=== PATIENT | male | born 1945 | race Hispanic/Latino ===

== ENCOUNTER 2016-12-06 16:57 | Inpatient (IN) | payer MEDICARE ==
--- NOTE | 2016-12-06 18:57 | Emergency Department Report ---
Chief Complaint: Dyspnea/Respdistress Stated Complaint: DIFF BREATHING Time Seen by Provider: 12/06/16 18:51 - HPI History of Present Illness: 71 y/o male complain of shortness of breath x 1 hour prior to arrival .pt current out home O2 tank .pt state he did 2 breather treatment today without any relief .pt denies any shortness of breath at present .pt state he was given an influenza shot on Thursday.pt state he start on CPAP also on thursday. - ROS Review of Systems: per HPI - Exam Vital Signs: Vital Signs 12/06/16 17:22 Temperature 98.8 F Pulse Rate 112 H Respiratory 22 Rate Blood Pressure 95/57 O2 Sat by Pulse 94 Oximetry Physical Exam: GENERAL: The patient is well-developed and well-nourished. Patient is in NAD. HENT: Normocephalic. Atraumatic. Patient has moist mucous membranes. Throat: No erythema, swelling or exudates. EYES: Extraocular motions are intact, PERRL NECK: Supple. No meningitic signs are noted. There is no adenopathy noted. CHEST/LUNGS: wheezing noted bilateral . There is no respiratory distress noted. HEART/CARDIOVASCULAR: Regular rate and rhythm. Normal S1 S2. No murmurs, rubs , clicks, or gallops. ABDOMEN: Abdomen is soft, nontender.. Bowel sounds normoactive. There is no abdominal distention. Negative rebound tenderness. Negative Rovsing. Negative Ellinger testing. Negative obturator and psoas signs. Negative CVA tenderness B/ L. : Deferred. SKIN: There is no rash. There is no edema. There is no diaphoresis. NEURO: The patient is A&Ox3. The patient has no focal neurologic deficits. MUSCULOSKELETAL: There is no tenderness or deformity. There is no limitation range of motion. PSYCH: Pt has appropriate mood and affect. MSE screening note: Focused history and physical exam performed. Due to findings the following was ordered: ED Disposition for MSE Condition: Stable
[2016-12-06] MEDS ORDERED: DUONEB 0.5 MG-3 MG/3 ML SOLN IH ONE (19:03)
[2016-12-06 19:44] LABS: Basophils % (Auto) 0.3 % (0.0-1.8); Eosinophils % (Auto) 1.1 % (0.0-4.3); Hematocrit 35.6 % (35.5-45.6); Hemoglobin 11.9 gm/dl (11.8-15.2); Mean Corpuscular HGB Conc 33 % (32-34); Mean Corpuscular Hemoglobin 29 pg (28-32); Mean Corpuscular Volume 87 fl (84-94); Platelet Count 156 K/mm3 (140-440); Red Blood Count 4.11 M/mm3 (3.65-5.03); Red Cell Distribution Width 17.2 % (13.2-15.2); White Blood Count 7.6 K/mm3 (4.5-11.0)
[2016-12-06 20:03] LABS: Creatine Kinase MB 2.4 ng/mL (0.0-4.0)
[2016-12-06 20:06] LABS: Blood Urea Nitrogen 23 mg/dL (9-20); Calcium 9.4 mg/dL (8.4-10.2); Carbon Dioxide 22 mmol/L (22-30); Creatine Kinase 95 units/L (55-170); Glucose 294 mg/dL (75-100); Potassium 4.1 mmol/L (3.6-5.0); Sodium 138 mmol/L (137-145)
[2016-12-06 20:46] LABS: Anion Gap 22 mmol/L
[2016-12-06] MEDS ORDERED: PROVENTIL IH ONE (23:09)
[2016-12-06] MEDS ORDERED: ATROVENT IH ONE (23:09)
--- NOTE | 2016-12-06 23:16 | Emergency Department Report ---
HPI - General Chief Complaint: Dyspnea/Respdistress Time Seen by Provider: 12/06/16 22:57 - HPI HPI: Room 4 The patient is a 71-year-old male presenting with a chief complaint of shortness of breath. The patient states his symptoms began approximately 3 days ago with rhinorrhea, nasal congestion and sneezing dry throat, cough that was occasionally productive of sputum and increased wheezing. The patient states 2 days before his symptoms began he received a flu and pneumonia vaccinations primary physician's office. Today at home he noticed his pulse ox was 86% on room air while receiving a nebulizer. The patient states he normally wears 3 L nasal cannula most of the time. Patient admits to subjective fever. In the ED the patient was given a neb which he states only helped slightly. The patient still feels short of breath with increased work of breathing. Location: Lungs Duration: [see above] Quality: Shortness of breath Severity: Moderate Modifying factors: [see above] Context: [see above] Mode of transportation: [not driving] ED Past Medical Hx - Past Medical History Hx Hypertension: Yes Hx Diabetes: Yes (1993) Hx Arthritis: Yes (right knee hands) Hx Kidney Stones: Yes Hx COPD: Yes (home O2 3-4 Lpm NC) Additional medical history: 'bundle branch block', respiratory failure, intubated x 5. last pneumovax 12/01/2016. last flu shot 12/01/2016 - Surgical History Past Surgical History?: Yes Additional Surgical History: hernia repair. kidney stones removed - Family History Family history: no significant - Social History Smoking Status: Former Smoker (none 2 years) Substance Use Type: Alcohol (occasional) - Medications Home Medications: Home Medications Medication Instructions Recorded Confirmed Last Taken Type Ipratropium/Albuterol Sulfate 1 spray IH QID 06/18/15 12/02/15 10/11/15 History [Combivent Respimat] Amoxicillin/K Clav Tab [Augmentin 1 tab PO Q12HR #20 tab 10/16/15 12/02/15 Unknown Rx 875 mg] predniSONE [Deltasone] 50 mg PO QDAY #10 tab 10/16/15 12/02/15 Unknown Rx ALBUTEROL Inhaler [ProAir HFA 2 puff IH QID PRN #1 inha 04/30/16 10/23/16 Unknown Rx Inhaler] Aspirin [Aspirin BABY CHEW TAB] 81 mg PO QDAY #30 tab.chew 04/30/16 10/23/16 Unknown Rx AtorvaSTATin [Lipitor] 40 mg PO QPM #30 tablet 04/30/16 10/23/16 Unknown Rx Canagliflozin [Invokana] 300 mg PO DAILY #30 tablet 04/30/16 10/23/16 Unknown Rx Escitalopram [Lexapro] 10 mg PO DAILY #30 tablet 04/30/16 10/23/16 Unknown Rx Insulin Glargine [Lantus VIAL] 28 unit SUB-Q QHS #100 units 04/30/16 10/23/16 Unknown Rx Insulin Glulisine [Apidra] See Protocol SQ TIDWM #100 units 04/30/16 10/23/16 Unknown Rx Ipratropium/Albuterol Sulfate 1 spray IH QID #1 mist.inhal 04/30/16 10/23/16 Unknown Rx [Combivent Respimat] Lisinopril [Zestril TAB] 10 mg PO QDAY #30 tablet 04/30/16 10/23/16 Unknown Rx Metformin HCl [Glucophage] 1,000 mg PO BID #60 tablet 04/30/16 10/23/16 Unknown Rx Sitagliptin Phosphate [Januvia] 100 mg PO DAILY #30 tablet 04/30/16 10/23/16 Unknown Rx amLODIPine [Norvasc] 5 mg PO DAILY #30 tablet 04/30/16 10/23/16 Unknown Rx Azithromycin [Zithromax Z-DEVORA] 0 mg PO DAILY #1 tab 10/24/16 Unknown Rx Loratadine [Claritin] 10 mg PO QDAY #10 tablet 10/24/16 Unknown Rx Prednisone [predniSONE 10 mg 10 mg PO .TAPER #1 tab.ds.pk 10/24/16 Unknown Rx (6-Day Pack, 21 Tabs)] ED Review of Systems ROS: Stated complaint: DIFF BREATHING Other details as noted in HPI Comment: All other systems reviewed and negative Constitutional: fever (subjective) Eyes: denies: eye pain, eye discharge, vision change ENT: congestion, other (rhinorrhea). denies: ear pain, throat pain Respiratory: cough, shortness of breath, wheezing Cardiovascular: denies: chest pain, palpitations Endocrine: no symptoms reported Gastrointestinal: denies: abdominal pain, nausea, diarrhea Genitourinary: denies: urgency, dysuria Musculoskeletal: denies: back pain, joint swelling, arthralgia Skin: denies: rash, lesions Neurological: denies: headache, weakness, paresthesias Psychiatric: denies: anxiety, depression Hematological/Lymphatic: denies: easy bleeding, easy bruising Physical Exam - Physical Exam Vital Signs: Vital Signs 12/06/16 12/06/16 12/06/16 17:22 19:46 19:52 Temperature 98.8 F Pulse Rate 112 H Pulse Rate [ 109 H 104 H Posterior Bilateral Throughout] Respiratory 22 Rate Respiratory 22 22 Rate [Posterior Bilateral Throughout] Blood Pressure 95/57 O2 Sat by Pulse 94 Oximetry Physical Exam: GENERAL: The patient is well-developed well-nourished male lying on stretcher appearing to have slightly labored respirations. [] HEENT: Normocephalic. Atraumatic. Extraocular motions are intact. Patient has moist mucous membranes. NECK: Supple. Trachea midline CHEST/LUNGS: Diminished breath sounds bilaterally. Fine expiratory wheezes auscultated. There is increased work of breathing with some accessory muscle use HEART/CARDIOVASCULAR: Regular. There is no tachycardia. There is no gallop rub or murmur. ABDOMEN: Abdomen is soft, nontender. Patient has normal bowel sounds. There is no abdominal distention. SKIN: There is no rash. There is trace bilateral lower extremity edema. There is no diaphoresis. NEURO: The patient is awake, alert, and oriented. The patient is cooperative. The patient has normal speech MUSCULOSKELETAL:There is no evidence of acute injury. ED Course Vital Signs 12/06/16 12/06/16 12/06/16 17:22 19:46 19:52 Temperature 98.8 F Pulse Rate 112 H Pulse Rate [ 109 H 104 H Posterior Bilateral Throughout] Respiratory 22 Rate Respiratory 22 22 Rate [Posterior Bilateral Throughout] Blood Pressure 95/57 O2 Sat by Pulse 94 Oximetry - Reevaluation(s) Reevaluation #1: 12/07/16 00:05 Patient is less diminished after nebs subsequently more wheezing is audible. Given continued work of breathing and wheezing patient will be admitted to the hospital for further management - Consultations Consultation #1: 12/07/16 00:05 Pulmonology paged ED Medical Decision Making - Lab Data Result diagrams: 12/06/16 19:24 12/06/16 19:24 Laboratory Tests 12/06/16 12/06/16 12/06/16 19:24 19:24 19:24 WBC 7.6 RBC 4.11 Hgb 11.9 Hct 35.6 MCV 87 MCH 29 MCHC 33 RDW 17.2 H Plt Count 156 Lymph % (Auto) 13.3 L [place] % (Auto) 9.6 H Eos % (Auto) 1.1 Baso % (Auto) 0.3 Lymph # 1.0 L Leslie # 0.7 Eos # 0.1 Baso # 0.0 Seg Neutrophils % 75.7 H Seg Neutrophils # 5.7 Sodium 138 Potassium 4.1 Chloride 98.0 Carbon Dioxide 22 Anion Gap 22 BUN 23 H Creatinine 1.0 Estimated GFR > 60 BUN/Creatinine Ratio 23.00 Glucose 294 H Calcium 9.4 Total Creatine Kinase 95 CK-MB (CK-2) 2.4 CK-MB (CK-2) Rel Index 2.5 Troponin T < 0.010 NT-Pro-B Natriuret Pep 315.6 - EKG Data -: EKG Interpreted by Me EKG shows normal: sinus rhythm Rate: normal - EKG Data When compared to previous EKG there are: no significant change Interpretation: unchanged when compared t (10/23/2016), other (left bundle branch block) - Radiology Data Radiology results: image reviewed (chest x-ray) interpreted by me: Chest x-ray-left lower lobe atelectasis. No pneumothorax - Differential Diagnosis pneumonia, COPD, pneumothorax Critical care attestation.: If time is entered above; I have spent that time in minutes in the direct care of this critically ill patient, excluding procedure time. ED Disposition Clinical Impression: COPD exacerbation, Atelectasis, Shortness of breath Disposition: OP ADMITTED IP TO THIS HOSP Is pt being admited?: Yes Does the pt Need Aspirin: Yes Condition: Fair Instructions: Chronic Obstructive Pulmonary Disease (ED) Referrals: PRIMARY CARE, [Primary Care Provider] - 3-5 Days Time of Disposition: 00:06 (hospitalist notified)
--- NOTE | 2016-12-07 00:27 | History and Physical Report ---
History of Present Illness Chief complaint: short of breath History of present illness: 71 YO Male with COPD, Chronic Respiratory Failure on 3L Home oxygen, DM, HTN, OA , Cardiomyopathy presents to ED for evalauation. PT states that he has been experiencing shortness of breath for wht past 4 days with worsening symptoms over the past 1 day. Pt acknowledges productive cough with increased sputum. Pt denies fever, chills, CP, Palpitations, NVD, Syncope, prolonged immobility/ travel, individual/family history of DVT/PE. Today at home he noticed his pulse ox was 86% on room air while receiving a nebulizer and subsequently presents for evaluation. Past History Past Medical History: arthritis, COPD, diabetes, hypertension Past Surgical History: hernia repair, Other (kidney stone extraction) Social history: , lives with family. denies: smoking, alcohol abuse, prescription drug abuse Family history: diabetes, hypertension Medications and Allergies Allergies Allergy/AdvReac Type Severity Reaction Status Date / Time benazepril HCl Allergy Rash Verified 09/21/14 16:29 [From Lotensin] theophylline AdvReac Unknown Verified 09/21/14 16:29 Home Medications Medication Instructions Recorded Confirmed Last Taken Type Ipratropium/Albuterol Sulfate 1 spray IH QID 06/18/15 12/02/15 10/11/15 History [Combivent Respimat] Amoxicillin/K Clav Tab [Augmentin 1 tab PO Q12HR #20 tab 10/16/15 12/02/15 Unknown Rx 875 mg] predniSONE [Deltasone] 50 mg PO QDAY #10 tab 10/16/15 12/02/15 Unknown Rx ALBUTEROL Inhaler [ProAir HFA 2 puff IH QID PRN #1 inha 04/30/16 12/07/16 1 Day Ago Rx Inhaler] Aspirin [Aspirin BABY CHEW TAB] 81 mg PO QDAY #30 tab.chew 04/30/16 12/07/16 1 Day Ago Rx 81 AtorvaSTATin [Lipitor] 40 mg PO QPM #30 tablet 04/30/16 12/07/16 1 Day Ago Rx 40 Canagliflozin [Invokana] 300 mg PO DAILY #30 tablet 04/30/16 12/07/16 1 Day Ago Rx 300 Escitalopram [Lexapro] 10 mg PO DAILY #30 tablet 04/30/16 12/07/16 1 Day Ago Rx 10 Insulin Glargine [Lantus VIAL] 28 unit SUB-Q QHS #100 units 04/30/16 12/07/16 1 Day Ago Rx Insulin Glulisine [Apidra] See Protocol SQ TIDWM #100 units 04/30/16 12/07/16 1 Day Ago Rx Ipratropium/Albuterol Sulfate 1 spray IH QID #1 mist.inhal 04/30/16 12/07/16 1 Day Ago Rx [Combivent Respimat] 1 Lisinopril [Zestril TAB] 10 mg PO QDAY #30 tablet 04/30/16 12/07/16 1 Day Ago Rx 10 Metformin HCl [Glucophage] 1,000 mg PO BID #60 tablet 04/30/16 12/07/16 1 Day Ago Rx 1000 Sitagliptin Phosphate [Januvia] 100 mg PO DAILY #30 tablet 04/30/16 12/07/16 1 Day Ago Rx 100 amLODIPine [Norvasc] 5 mg PO DAILY #30 tablet 04/30/16 12/07/16 1 Day Ago Rx 5 Azithromycin [Zithromax Z-DEVORA] 0 mg PO DAILY #1 tab 10/24/16 12/07/16 1 Day Ago Rx Loratadine [Claritin] 10 mg PO QDAY #10 tablet 10/24/16 12/07/16 1 Day Ago Rx 10 Prednisone [predniSONE 10 mg 10 mg PO .TAPER #1 tab.ds.pk 10/24/16 12/07/16 1 Day Ago Rx (6-Day Pack, 21 Tabs)] 10 Review of Systems All systems: negative Respiratory: cough with sputum, shortness of breath Exam - Constitutional Vitals: Temp Pulse Resp BP Pulse Ox 98.8 F 84 21 125/71 96 12/06/16 17:22 12/06/16 23:31 12/06/16 23:31 12/06/16 23:05 12/06/16 23:18 General appearance: Present: no acute distress, well-nourished - EENT Eyes: Present: PERRL ENT: hearing intact, clear oral mucosa - Neck Neck: Present: supple, normal ROM - Respiratory Respiratory effort: normal Respiratory: bilateral: diminished - Cardiovascular Heart Sounds: Present: S1 & S2. Absent: rub, click - Extremities Extremities: pulses symmetrical, No edema Peripheral Pulses: within normal limits - Abdominal General gastrointestinal: Present: soft, non-tender, non-distended, normal bowel sounds Male genitourinary: Present: normal - Integumentary Integumentary: Present: clear, warm, dry - Musculoskeletal Musculoskeletal: generalized weakness - Psychiatric Psychiatric: appropriate mood/affect, intact judgment & insight - Neurologic Neurologic: CNII-XII intact, moves all extremities Results - Labs CBC & Chem 7: 12/06/16 19:24 12/06/16 19:24 Labs: Abnormal lab results 12/06/16 12/06/16 Range/Units 19:24 19:24 RDW 17.2 H (13.2-15.2) % Lymph % (Auto) 13.3 L (13.4-35.0) % [place] % (Auto) 9.6 H (0.0-7.3) % Lymph # 1.0 L (1.2-5.4) K/mm3 Seg Neutrophils % 75.7 H (40.0-70.0) % BUN 23 H (9-20) mg/dL Glucose 294 H (75-100) mg/dL Assessment and Plan - Patient Problems (1) COPD exacerbation Current Visit: Yes Status: Acute Plan to address problem: Supplemental Oxygen, nebs, IV abx, steroids, supportive care. (2) Acute on chronic respiratory failure Current Visit: No Status: Acute Qualifiers: Respiratory failure complication: hypoxia and hypercapnia Qualified Code(s) : J96.21 - Acute and chronic respiratory failure with hypoxia Plan to address problem: Supplemental oxygen, nebs, supportive care. (3) Diabetes Current Visit: No Status: Chronic Plan to address problem: ADA diet, insulin, accu check (4) HTN (hypertension) Current Visit: No Status: Chronic Plan to address problem: monitor bp q shift, continue current therapy (5) DVT prophylaxis Current Visit: No Status: Acute
--- NOTE | 2016-12-07 00:28 | History and Physical Report ---
Medications and Allergies Allergies Allergy/AdvReac Type Severity Reaction Status Date / Time benazepril HCl Allergy Rash Verified 09/21/14 16:29 [From Lotensin] theophylline AdvReac Unknown Verified 09/21/14 16:29 Home Medications Medication Instructions Recorded Confirmed Last Taken Type Ipratropium/Albuterol Sulfate 1 spray IH QID 06/18/15 12/02/15 10/11/15 History [Combivent Respimat] Amoxicillin/K Clav Tab [Augmentin 1 tab PO Q12HR #20 tab 10/16/15 12/02/15 Unknown Rx 875 mg] predniSONE [Deltasone] 50 mg PO QDAY #10 tab 10/16/15 12/02/15 Unknown Rx ALBUTEROL Inhaler [ProAir HFA 2 puff IH QID PRN #1 inha 04/30/16 10/23/16 Unknown Rx Inhaler] Aspirin [Aspirin BABY CHEW TAB] 81 mg PO QDAY #30 tab.chew 04/30/16 10/23/16 Unknown Rx AtorvaSTATin [Lipitor] 40 mg PO QPM #30 tablet 04/30/16 10/23/16 Unknown Rx Canagliflozin [Invokana] 300 mg PO DAILY #30 tablet 04/30/16 10/23/16 Unknown Rx Escitalopram [Lexapro] 10 mg PO DAILY #30 tablet 04/30/16 10/23/16 Unknown Rx Insulin Glargine [Lantus VIAL] 28 unit SUB-Q QHS #100 units 04/30/16 10/23/16 Unknown Rx Insulin Glulisine [Apidra] See Protocol SQ TIDWM #100 units 04/30/16 10/23/16 Unknown Rx Ipratropium/Albuterol Sulfate 1 spray IH QID #1 mist.inhal 04/30/16 10/23/16 Unknown Rx [Combivent Respimat] Lisinopril [Zestril TAB] 10 mg PO QDAY #30 tablet 04/30/16 10/23/16 Unknown Rx Metformin HCl [Glucophage] 1,000 mg PO BID #60 tablet 04/30/16 10/23/16 Unknown Rx Sitagliptin Phosphate [Januvia] 100 mg PO DAILY #30 tablet 04/30/16 10/23/16 Unknown Rx amLODIPine [Norvasc] 5 mg PO DAILY #30 tablet 04/30/16 10/23/16 Unknown Rx Azithromycin [Zithromax Z-DEVORA] 0 mg PO DAILY #1 tab 10/24/16 Unknown Rx Loratadine [Claritin] 10 mg PO QDAY #10 tablet 10/24/16 Unknown Rx Prednisone [predniSONE 10 mg 10 mg PO .TAPER #1 tab.ds.pk 10/24/16 Unknown Rx (6-Day Pack, 21 Tabs)] Exam - Constitutional Vitals: Temp Pulse Resp BP Pulse Ox 98.8 F 84 21 125/71 96 12/06/16 17:22 12/06/16 23:31 12/06/16 23:31 12/06/16 23:05 12/06/16 23:18 Results - Labs CBC & Chem 7: 12/06/16 19:24 12/06/16 19:24 Labs: Abnormal lab results 12/06/16 12/06/16 Range/Units 19:24 19:24 RDW 17.2 H (13.2-15.2) % Lymph % (Auto) 13.3 L (13.4-35.0) % [place] % (Auto) 9.6 H (0.0-7.3) % Lymph # 1.0 L (1.2-5.4) K/mm3 Seg Neutrophils % 75.7 H (40.0-70.0) % BUN 23 H (9-20) mg/dL Glucose 294 H (75-100) mg/dL
[2016-12-07] MEDS ORDERED: TYLENOL PO PRN (00:29)
[2016-12-07] MEDS ORDERED: PROAIR IH PRN (00:31)
[2016-12-07] MEDS ORDERED: D50W (25GM) IV PRN (00:33)
[2016-12-07] MEDS ORDERED: ZITHROMAX 500 MG in NACL 0.9% 250ML 250 ML IV ONE (00:34)
--- NOTE | 2016-12-07 01:43 | Admit Criteria Form ---
Admission Criteria Documentation: COPD Clinical Indications for Admission to Inpatient Care (Place 'X' for any and all applicable criteria): Admission is indicated for ANY ONE of the following (1)(2)(3): [X ]I. Acute exacerbation by high-risk comorbidity (e.g., pneumonia, dysrhythmia, heart failure, pleural effusion, pneumothorax) or severe underlying COPD (e.g., steroid dependent) [ ]II. Inpatient admission required rather than observation care (see Chronic Obstructive Pulmonary Disease: Observation Care) because of ANY ONE of the following: [ ]a) New or pre-existing signs or symptoms of COPD (eg, dyspnea or Tachypnea at rest or with minimal activity) that persist despite outpatient and observation care treatment [ ]b) New-onset hypoxemia (room air SaO2 less than 90%, PO2 less than 60 mm Hg (8.0 kPa)) that persists despite outpatient and observation care treatment [ ]c) Worsening of pre-existing hypoxemia (eg, new or increased requirement for supplemental oxygen to maintain oxygenation at baseline level) that persists despite outpatient and observation care treatment, with oxygen treatment needs performable only in acute inpatient setting [ ]d) Hypercarbia (PCO2 greater than 40 mm Hg (5.3 kPa))-induced respiratory acidosis (pH less than 7.35) that persists despite outpatient and observation care treatment [ ]e) Supplemental oxygen or respiratory treatments for over 24 hours that are performable only in acute inpatient setting [ ]f) Chest tube placement with active evacuation (e.g., suction, drainage) (5) [ ]g) Other condition, treatment or monitoring requiring inpatient admission [ ]III. Planned invasive surgical or diagnostic procedures requiring acute- care hospitalization [ ]IV. Acute respiratory failure (e.g., uncompensated hypercarbia, severe hypoxemia) [ ]V. Severe comorbid condition (e.g., severe steroid myopathy, acute vertebral fracture) that has acutely worsened pulmonary function [ ]. Confusion state, lethargy, obtundation, stupor or coma Extended stay beyond goal length of stay may be needed for (31)(32): [ ]a ) Respiratory Failure. [ ]b) Severe or persisting hypoxemia or hypercarbia [ ]c) Severe or persistent dyspnea [ ]d) Comorbidities (e.g. chronic heart failure, atrial fibrillation with rapid response, pneumonia) [ ]e) Malnutrition The original [facility] content created by [facility] has been revised. The portions of the content which have been revised are identified through the use of italic text or in bold, and [facility] has neither reviewed nor approved the modified material. All other unmodified content is copyright [facility]. Please see references footnoted in the original [facility] edition 2016 Admission Criteria Met: Yes
[2016-12-07] MEDS: NOVOLOG SUB-Q SCH ×4 (06:20→22:30)
[2016-12-07] MEDS ORDERED: NON-FORMULARY (Canagliflozin [Invokana] 300 MG) PO SCH (10:00)
--- NOTE | 2016-12-07 10:01 | XRay Report ---
ROUTINE CHEST, TWO VIEWS: HISTORY: Dyspnea. Mild to moderate emphysematous changes are suspected. The lungs are clear. Normal heart size and pulmonary vascularity. The thoracic cage is unremarkable. IMPRESSION: Emphysematous changes. Little change since 10/23/16.
[2016-12-07] MEDS: BABY ASPIRIN PO SCH (10:11)
[2016-12-07] MEDS: NORVASC PO SCH (10:12)
[2016-12-07] MEDS: PROVENTIL IH PRN ×2 (11:06→18:41)
[2016-12-07] MEDS: CLARITIN PO SCH (12:08)
[2016-12-07] MEDS: ZESTRIL PO SCH (12:09)
[2016-12-07] MEDS: LEXAPRO PO SCH (12:09)
[2016-12-07] MEDS ORDERED: INSULIN GLARGINE 28 UNIT SUB-Q SCH (22:00)
[2016-12-07] MEDS: LEVEMIR SUB-Q SCH (22:30)
[2016-12-08] MEDS: NOVOLOG SUB-Q SCH ×4 (08:05→22:28)
[2016-12-08] MEDS: PROVENTIL IH PRN (08:16)
[2016-12-08] MEDS ORDERED: PROVENTIL IH PRN (08:21)
[2016-12-08] MEDS: BABY ASPIRIN PO SCH (10:18)
[2016-12-08] MEDS: CLARITIN PO SCH (10:19)
[2016-12-08] MEDS: ZESTRIL PO SCH (10:19)
[2016-12-08] MEDS: NORVASC PO SCH (10:19)
[2016-12-08] MEDS: LEXAPRO PO SCH (10:19)
[2016-12-08] MEDS: ZITHROMAX 500 MG in NACL 0.9% 250ML 250 ML IV SCH (10:22)
--- NOTE | 2016-12-08 13:24 | Consultation ---
Past History Past Medical History: arthritis, COPD, diabetes, hypertension Past Surgical History: hernia repair, Other (kidney stone extraction) Social history: , lives with family. denies: smoking, alcohol abuse, prescription drug abuse Family history: diabetes, hypertension Medications and Allergies Allergies Allergy/AdvReac Type Severity Reaction Status Date / Time benazepril HCl Allergy Rash Verified 09/21/14 16:29 [From Lotensin] theophylline AdvReac Unknown Verified 09/21/14 16:29 Home Medications Medication Instructions Recorded Confirmed Last Taken Type Ipratropium/Albuterol Sulfate 1 spray IH QID 06/18/15 12/02/15 10/11/15 History [Combivent Respimat] Amoxicillin/K Clav Tab [Augmentin 1 tab PO Q12HR #20 tab 10/16/15 12/02/15 Unknown Rx 875 mg] predniSONE [Deltasone] 50 mg PO QDAY #10 tab 10/16/15 12/02/15 Unknown Rx ALBUTEROL Inhaler [ProAir HFA 2 puff IH QID PRN #1 inha 04/30/16 12/07/16 1 Day Ago Rx Inhaler] Aspirin [Aspirin BABY CHEW TAB] 81 mg PO QDAY #30 tab.chew 04/30/16 12/07/16 1 Day Ago Rx 81 AtorvaSTATin [Lipitor] 40 mg PO QPM #30 tablet 04/30/16 12/07/16 1 Day Ago Rx 40 Canagliflozin [Invokana] 300 mg PO DAILY #30 tablet 04/30/16 12/07/16 1 Day Ago Rx 300 Escitalopram [Lexapro] 10 mg PO DAILY #30 tablet 04/30/16 12/07/16 1 Day Ago Rx 10 Insulin Glargine [Lantus VIAL] 28 unit SUB-Q QHS #100 units 04/30/16 12/07/16 1 Day Ago Rx Insulin Glulisine [Apidra] See Protocol SQ TIDWM #100 units 04/30/16 12/07/16 1 Day Ago Rx Ipratropium/Albuterol Sulfate 1 spray IH QID #1 mist.inhal 04/30/16 12/07/16 1 Day Ago Rx [Combivent Respimat] 1 Lisinopril [Zestril TAB] 10 mg PO QDAY #30 tablet 04/30/16 12/07/16 1 Day Ago Rx 10 Metformin HCl [Glucophage] 1,000 mg PO BID #60 tablet 04/30/16 12/07/16 1 Day Ago Rx 1000 Sitagliptin Phosphate [Januvia] 100 mg PO DAILY #30 tablet 04/30/16 12/07/16 1 Day Ago Rx 100 amLODIPine [Norvasc] 5 mg PO DAILY #30 tablet 04/30/16 12/07/16 1 Day Ago Rx 5 Azithromycin [Zithromax Z-DEVORA] 0 mg PO DAILY #1 tab 10/24/16 12/07/16 1 Day Ago Rx Loratadine [Claritin] 10 mg PO QDAY #10 tablet 10/24/16 12/07/16 1 Day Ago Rx 10 Prednisone [predniSONE 10 mg 10 mg PO .TAPER #1 tab.ds.pk 10/24/16 12/07/16 1 Day Ago Rx (6-Day Pack, 21 Tabs)] 10 Active Meds: Active Medications Acetaminophen (Tylenol) 650 mg PO Q4H PRN PRN Reason: Pain MILD(1-3)/Fever >100.5/[place] Albuterol (Proventil) 2.5 mg IH Q4HRT PRN PRN Reason: Shortness Of Breath Albuterol/Ipratropium (Duoneb 0.5 Mg-3 Mg/3 Ml Soln) 1 ampul IH TIDRT JJ Amlodipine Besylate (Norvasc) 5 mg PO DAILY [facility] Last Admin: 12/08/16 10:19 Dose: 5 mg Aspirin (Baby Aspirin) 81 mg PO QDAY [facility] Last Admin: 12/08/16 10:18 Dose: 81 mg Atorvastatin Calcium (Lipitor) 40 mg PO QPM [facility] Dextrose (D50w (25gm)) 50 ml IV PRN PRN PRN Reason: Hypoglycemia Escitalopram Oxalate (Lexapro) 10 mg PO DAILY [facility] Last Admin: 12/08/16 10:19 Dose: 10 mg Azithromycin 500 mg/ Sodium (Chloride) 250 mls @ 250 mls/hr IV Q24HR [facility] Last Admin: 12/08/16 10:22 Dose: 250 mls/hr Insulin Aspart (Novolog) 0 units SUB-Q ACHS JJ PRN Reason: Protocol Last Admin: 12/08/16 08:05 Dose: Not Given Insulin Detemir (Levemir) 28 units SUB-Q QHS [facility] Last Admin: 12/07/16 22:30 Dose: 28 units Lisinopril (Zestril) 10 mg PO QDAY [facility] Last Admin: 12/08/16 10:19 Dose: 10 mg Loratadine (Claritin) 10 mg PO QDAY [facility] Last Admin: 12/08/16 10:19 Dose: 10 mg Methylprednisolone Sodium Succinate (Solu-Medrol) 40 mg IV Q24HR [facility] Last Admin: 12/08/16 10:23 Dose: 40 mg Miscellaneous Medication (Canagliflozin [Invokana]) 300 mg PO DAILY [facility] Physical Examination Vital signs: Vital Signs Temp Pulse Resp BP Pulse Ox 98.8 F 112 H 22 95/57 94 12/06/16 17:22 12/06/16 17:22 12/06/16 17:22 12/06/16 17:22 12/06/16 17:22 Results - Laboratory Findings CBC and BMP: 12/06/16 19:24 12/06/16 19:24 PT/INR, D-dimer D-Dimer 194.49 ng/mlDDU (0-234) 12/07/16 00:47 Abnormal lab findings: Abnormal Labs 12/07/16 12/07/16 12/07/16 06:22 11:50 16:18 POC Glucose 318 H 290 H 378 H 12/07/16 12/08/16 12/08/16 21:20 06:18 12:01 POC Glucose 254 H 115 H 252 H
[2016-12-08] MEDS: DUONEB 0.5 MG-3 MG/3 ML SOLN IH SCH ×2 (14:23→20:52)
--- NOTE | 2016-12-08 16:14 | Progress Note ---
Assessment and Plan Assessment and plan: (1) COPD exacerbation Plan to address problem: Supplemental Oxygen, nebs, IV abx, steroids, supportive care. (2) Acute on chronic respiratory failure Respiratory failure complication: hypoxia and hypercapnia Supplemental oxygen, nebs, supportive care. (3) Diabetes ADA diet, insulin, accu check (4) HTN (hypertension) monitor bp q shift, continue current therapy Tentative dc in 1-2 days if continues to improve History Interval history: Continues to have cough wheezing shortness of breath Hospitalist Physical - Physical exam Narrative exam: General: Patient appears well in no distress HEENT: MMM, EOMI cardiac: S1-S2 heard lungs: Decreased air entry, expiratory wheezing. abdomen: soft, nontender, nondistended bowel sounds positive extremities: no edema clubbing or cyanosis Skin: no rash or lesion Neuro: no focal deficit Psych: appropriate behavior and mood, cognition intact - Constitutional Vitals: Temp Pulse Resp BP Pulse Ox 98.5 F 92 H 20 116/60 95 12/08/16 16:10 12/08/16 16:10 12/08/16 16:10 12/08/16 16:10 12/08/16 10:00 General appearance: Present: no acute distress, well-nourished Results - Labs CBC & Chem 7: 12/06/16 19:24 12/06/16 19:24 Labs: Laboratory Last Values WBC 7.6 K/mm3 (4.5-11.0) 12/06/16 19:24 RBC 4.11 M/mm3 (3.65-5.03) 12/06/16 19:24 Hgb 11.9 gm/dl (11.8-15.2) 12/06/16 19:24 Hct 35.6 % (35.5-45.6) 12/06/16 19:24 MCV 87 fl (84-94) 12/06/16 19:24 MCH 29 pg (28-32) 12/06/16 19:24 MCHC 33 % (32-34) 12/06/16 19:24 RDW 17.2 % (13.2-15.2) H 12/06/16 19:24 Plt Count 156 K/mm3 (140-440) 12/06/16 19:24 Lymph % (Auto) 13.3 % (13.4-35.0) L 12/06/16 19:24 [place] % (Auto) 9.6 % (0.0-7.3) H 12/06/16 19:24 Eos % (Auto) 1.1 % (0.0-4.3) 12/06/16 19:24 Baso % (Auto) 0.3 % (0.0-1.8) 12/06/16 19:24 Lymph # 1.0 K/mm3 (1.2-5.4) L 12/06/16 19:24 [place] # 0.7 K/mm3 (0.0-0.8) 12/06/16 19:24 Eos # 0.1 K/mm3 (0.0-0.4) 12/06/16 19:24 Baso # 0.0 K/mm3 (0.0-0.1) 12/06/16 19:24 Seg Neutrophils % 75.7 % (40.0-70.0) H 12/06/16 19:24 Seg Neutrophils # 5.7 K/mm3 (1.8-7.7) 12/06/16 19:24 D-Dimer 194.49 ng/mlDDU (0-234) 12/07/16 00:47 Sodium 138 mmol/L (137-145) 12/06/16 19:24 Potassium 4.1 mmol/L (3.6-5.0) 12/06/16 19:24 Chloride 98.0 mmol/L (98-107) 12/06/16 19:24 Carbon Dioxide 22 mmol/L (22-30) 12/06/16 19:24 Anion Gap 22 mmol/L 12/06/16 19:24 BUN 23 mg/dL (9-20) H 12/06/16 19:24 Creatinine 1.0 mg/dL (0.8-1.5) 12/06/16 19:24 Estimated GFR > 60 ml/min 12/06/16 19:24 BUN/Creatinine Ratio 23.00 % 12/06/16 19:24 Glucose 294 mg/dL (75-100) H 12/06/16 19:24 POC Glucose 252 (70-105) H 12/08/16 12:01 Calcium 9.4 mg/dL (8.4-10.2) 12/06/16 19:24 Total Creatine Kinase 95 units/L (55-170) 12/06/16 19:24 CK-MB (CK-2) 2.4 ng/mL (0.0-4.0) 12/06/16 19:24 CK-MB (CK-2) Rel Index 2.5 (0-4) 12/06/16 19:24 Troponin T < 0.010 ng/mL (0.00-0.029) 12/06/16 19:24 NT-Pro-B Natriuret Pep 315.6 pg/mL (0-900) 12/06/16 19:24
--- NOTE | 2016-12-08 19:22 | Consultation ---
History of Present Illness Consult date: 12/08/16 Requesting physician: HANSA CHRISTIE Reason for consult: COPD History of present illness: [address] León admitted with increased cough, yellow sputum, yellow nasal discharge, increased SOB and wheezing, subjective fevers, worsening hypoxia. No chest pain, hemoptysis. Feeling better since admission. Recently got a new CPAP and wonders if the humidity made his lungs worse. Active Medications Acetaminophen (Tylenol) 650 mg PO Q4H PRN PRN Reason: Pain MILD(1-3)/Fever >100.5/[place] Albuterol (Proventil) 2.5 mg IH Q4HRT PRN PRN Reason: Shortness Of Breath Albuterol/Ipratropium (Duoneb 0.5 Mg-3 Mg/3 Ml Soln) 1 ampul IH TIDRT [facility] Last Admin: 12/08/16 14:23 Dose: 1 ampul Amlodipine Besylate (Norvasc) 5 mg PO DAILY [facility] Last Admin: 12/08/16 10:19 Dose: 5 mg Aspirin (Baby Aspirin) 81 mg PO QDAY [facility] Last Admin: 12/08/16 10:18 Dose: 81 mg Atorvastatin Calcium (Lipitor) 40 mg PO QPM [facility] Last Admin: 12/08/16 18:31 Dose: 40 mg Dextrose (D50w (25gm)) 50 ml IV PRN PRN PRN Reason: Hypoglycemia Escitalopram Oxalate (Lexapro) 10 mg PO DAILY [facility] Last Admin: 12/08/16 10:19 Dose: 10 mg Azithromycin 500 mg/ Sodium (Chloride) 250 mls @ 250 mls/hr IV Q24HR [facility] Last Admin: 12/08/16 10:22 Dose: 250 mls/hr Insulin Aspart (Novolog) 0 units SUB-Q ACHS [facility] PRN Reason: Protocol Last Admin: 12/08/16 17:00 Dose: 4 units Insulin Detemir (Levemir) 28 units SUB-Q QHS [facility] Last Admin: 12/07/16 22:30 Dose: 28 units Lisinopril (Zestril) 10 mg PO QDAY [facility] Last Admin: 12/08/16 10:19 Dose: 10 mg Loratadine (Claritin) 10 mg PO QDAY [facility] Last Admin: 12/08/16 10:19 Dose: 10 mg Methylprednisolone Sodium Succinate (Solu-Medrol) 40 mg IV Q24HR [facility] Last Admin: 12/08/16 10:23 Dose: 40 mg Miscellaneous Medication (Canagliflozin [Invokana]) 300 mg PO DAILY [facility] Past History Past Medical History: arthritis, COPD, diabetes, hypertension Past Surgical History: hernia repair, Other (kidney stone extraction) Social history: , lives with family, full code. denies: smoking, alcohol abuse, prescription drug abuse, IV drug use Family history: diabetes, hypertension Medications and Allergies Allergies Allergy/AdvReac Type Severity Reaction Status Date / Time benazepril HCl Allergy Rash Verified 09/21/14 16:29 [From Lotensin] theophylline AdvReac Unknown Verified 09/21/14 16:29 Home Medications Medication Instructions Recorded Confirmed Last Taken Type RX: Ipratropium/Albuterol Sulfate 1 spray IH QID 06/18/15 12/02/15 10/11/15 History [Combivent Respimat] Amoxicillin/K Clav Tab [Augmentin 1 tab PO Q12HR #20 tab 10/16/15 12/02/15 Unknown Rx 875 mg] RX: predniSONE [Deltasone] 50 mg PO QDAY #10 tab 10/16/15 12/02/15 Unknown Rx RX: ALBUTEROL Inhaler [ProAir HFA 2 puff IH QID PRN #1 inha 04/30/16 12/07/16 1 Day Ago Rx Inhaler] RX: Aspirin [Aspirin BABY CHEW TAB] 81 mg PO QDAY #30 tab.chew 04/30/16 1 Day Ago Rx 81 RX: AtorvaSTATin [Lipitor] 40 mg PO QPM #30 tablet 04/30/16 12/07/16 1 Day Ago Rx 40 RX: Canagliflozin [Invokana] 300 mg PO DAILY #30 tablet 04/30/16 12/07/16 1 Day Ago Rx 300 RX: Escitalopram [Lexapro] 10 mg PO DAILY #30 tablet 04/30/16 12/07/16 1 Day Ago Rx 10 RX: Insulin Glargine [Lantus VIAL] 28 unit SUB-Q QHS #100 units 04/30/16 1 Day Ago Rx RX: Insulin Glulisine [Apidra] See Protocol SQ TIDWM #100 units 04/30/16 1 Day Ago Rx RX: Ipratropium/Albuterol Sulfate 1 spray IH QID #1 mist.inhal 04/30/16 1 Day Ago Rx [Combivent Respimat] 1 RX: Lisinopril [Zestril TAB] 10 mg PO QDAY #30 tablet 04/30/16 12/07/16 1 Day Ago Rx 10 RX: Metformin HCl [Glucophage] 1,000 mg PO BID #60 tablet 04/30/16 12/07/16 1 Day Ago Rx 1000 RX: Sitagliptin Phosphate [Januvia] 100 mg PO DAILY #30 tablet 04/30/16 1 Day Ago Rx 100 RX: amLODIPine [Norvasc] 5 mg PO DAILY #30 tablet 04/30/16 12/07/16 1 Day Ago Rx 5 Azithromycin [Zithromax Z-DEVORA] 0 mg PO DAILY #1 tab 10/24/16 12/07/16 1 Day Ago Rx RX: Loratadine [Claritin] 10 mg PO QDAY #10 tablet 10/24/16 12/07/16 1 Day Ago Rx 10 RX: Prednisone [predniSONE 10 mg 10 mg PO .TAPER #1 tab.ds.pk 10/24/16 12/07/16 1 Day Ago Rx (6-Day Pack, 21 Tabs)] 10 Active Meds: Active Medications Acetaminophen (Tylenol) 650 mg PO Q4H PRN PRN Reason: Pain MILD(1-3)/Fever >100.5/[place] Albuterol (Proventil) 2.5 mg IH Q4HRT PRN PRN Reason: Shortness Of Breath Albuterol/Ipratropium (Duoneb 0.5 Mg-3 Mg/3 Ml Soln) 1 ampul IH TIDRT [facility] Last Admin: 12/08/16 14:23 Dose: 1 ampul Amlodipine Besylate (Norvasc) 5 mg PO DAILY [facility] Last Admin: 12/08/16 10:19 Dose: 5 mg Aspirin (Baby Aspirin) 81 mg PO QDAY [facility] Last Admin: 12/08/16 10:18 Dose: 81 mg Atorvastatin Calcium (Lipitor) 40 mg PO QPM [facility] Last Admin: 12/08/16 18:31 Dose: 40 mg Dextrose (D50w (25gm)) 50 ml IV PRN PRN PRN Reason: Hypoglycemia Escitalopram Oxalate (Lexapro) 10 mg PO DAILY [facility] Last Admin: 12/08/16 10:19 Dose: 10 mg Azithromycin 500 mg/ Sodium (Chloride) 250 mls @ 250 mls/hr IV Q24HR [facility] Last Admin: 12/08/16 10:22 Dose: 250 mls/hr Insulin Aspart (Novolog) 0 units SUB-Q ACHS JJ PRN Reason: Protocol Last Admin: 12/08/16 17:00 Dose: 4 units Insulin Detemir (Levemir) 28 units SUB-Q QHS [facility] Last Admin: 12/07/16 22:30 Dose: 28 units Lisinopril (Zestril) 10 mg PO QDAY [facility] Last Admin: 12/08/16 10:19 Dose: 10 mg Loratadine (Claritin) 10 mg PO QDAY [facility] Last Admin: 12/08/16 10:19 Dose: 10 mg Methylprednisolone Sodium Succinate (Solu-Medrol) 40 mg IV Q24HR [facility] Last Admin: 12/08/16 10:23 Dose: 40 mg Miscellaneous Medication (Canagliflozin [Invokana]) 300 mg PO DAILY [facility] Review of Systems All systems: negative (neg x 10 systems) Physical Examination Vital signs: Vital Signs Temp Pulse Resp BP Pulse Ox 98.8 F 112 H 22 95/57 94 12/06/16 17:22 12/06/16 17:22 12/06/16 17:22 12/06/16 17:22 12/06/16 17:22 General appearance: no acute distress, alert Eyes: non-icteric ENT: oropharynx moist Neck: supple Effort: normal Ascultation: Bilateral: clear Cardiovascular: regular rate and rhythm (no mrg) Gastrointestinal: normoactive bowel sounds, soft, non-tender, non-distended Integumentary: normal Extremities: no cyanosis, no edema, pink and warm Musculoskeletal: no deformities normal mental status, non-focal exam, pupils equal and round, CN II-XII normal mood appropriate, affect normal Results - Laboratory Findings CBC and BMP: 12/06/16 19:24 12/06/16 19:24 PT/INR, D-dimer D-Dimer 194.49 ng/mlDDU (0-234) 12/07/16 00:47 Abnormal lab findings: Abnormal Labs 12/07/16 12/07/16 12/07/16 06:22 11:50 16:18 POC Glucose 318 H 290 H 378 H 12/07/16 12/08/16 12/08/16 21:20 06:18 12:01 POC Glucose 254 H 115 H 252 H 12/08/16 16:41 POC Glucose 217 H - Diagnostic Findings Chest x-ray: report reviewed, image reviewed (no acute process/interval change) Assessment and Plan Imp: 1. Acute bronchitis +/- sinusitis 2. Centrilobular emphysema/COPD exacerbation; last FEV1 0.97 or 32% c/w very severe obstruction 3. A/C respiratory failure, hypoxia 4. Mild JUAN on CPAP Rec: 1. Complete 7-10 days of ABX 2. Solumedrol -> Prednisone taper at discharge 3. Mobilize as tolerated; monitor clinically; hopeful d/c next 1-2 days Plan of care reviewed w/ patient, he understands/agrees Thanks kindly for the consult. Will follow w/ you.
[2016-12-09] MEDS: LEVEMIR SUB-Q SCH (06:38)
[2016-12-09] MEDS: DUONEB 0.5 MG-3 MG/3 ML SOLN IH SCH (07:43)
[2016-12-09] MEDS: NOVOLOG SUB-Q SCH ×2 (09:22→12:37)
[2016-12-09] MEDS: NORVASC PO SCH (09:35)
[2016-12-09] MEDS: ZESTRIL PO SCH (09:35)
[2016-12-09] MEDS: BABY ASPIRIN PO SCH (09:36)
[2016-12-09] MEDS: LEXAPRO PO SCH (09:36)
[2016-12-09] MEDS: CLARITIN PO SCH (09:37)
--- NOTE | 2016-12-09 09:59 | Discharge Summary ---
Providers - Providers Date of Admission: 12/07/16 00:29 Attending physician: HANSA CHRISTIE MD Primary care physician: BRITTANY ANTOINE MD Hospitalization Condition: Fair Hospital course: This is a 71 y old male with a past medical history of COPD who presented with COPD exacerbation. He was treated with steroids and antibiotics and nebulizer treatment. He will also treated with supplemental oxygen, he clinically improved and being discharged in improved condition Discharge diagnoses 1. Acute exacerbation of COPD 2. Acute on chronic Hypoxic respiratory failure Disposition: DISCHARGED TO HOME OR SELFCARE Time spent for discharge: 35 minutes Core Measure Documentation - Palliative Care Palliative Care/ Comfort Measures: Not Applicable - Core Measures Any of the following diagnoses?: none Exam - Constitutional Vitals: Temp Pulse Resp BP Pulse Ox 96.4 F L 72 20 118/61 94 12/09/16 08:00 12/09/16 09:35 12/09/16 08:00 12/09/16 09:35 12/09/16 08:00 General appearance: Present: no acute distress, well-nourished - EENT Eyes: Present: PERRL ENT: hearing intact, clear oral mucosa - Neck Neck: Present: supple, normal ROM - Respiratory Respiratory effort: normal Respiratory: bilateral: CTA - Cardiovascular Heart Sounds: Present: S1 & S2. Absent: rub, click - Extremities Extremities: pulses symmetrical, No edema Peripheral Pulses: within normal limits - Abdominal General gastrointestinal: Present: soft, non-tender, non-distended, normal bowel sounds Male genitourinary: Present: normal - Integumentary Integumentary: Present: clear, warm, dry - Musculoskeletal Musculoskeletal: gait normal, strength equal bilaterally - Psychiatric Psychiatric: appropriate mood/affect, intact judgment & insight - Neurologic Neurologic: CNII-XII intact, moves all extremities Plan Follow up with: PRIMARY CARE, [Primary Care Provider] - 3-5 Days Prescriptions: Ipratropium/Albuterol Sulfate [Combivent Respimat] 1 spray IH QID #1 mist.inhal Azithromycin [Zithromax Z-DEVORA] 250 mg PO DAILY #4 tab Prednisone [predniSONE 10 mg (6-Day Pack, 21 Tabs)] 10 mg PO .TAPER #1 tab.pk
[2016-12-09] MEDS: ZITHROMAX 500 MG in NACL 0.9% 250ML 250 ML IV SCH (10:05)
[2016-12-09 11:50] VITALS: BP 140/68
--- NOTE | 2016-12-09 18:42 | Progress Note ---
Assessment and Plan Imp: 1. Acute bronchitis +/- sinusitis 2. Centrilobular emphysema/COPD exacerbation; last FEV1 0.97 or 32% c/w very severe obstruction 3. A/C respiratory failure, hypoxia 4. Mild JUAN on CPAP Rec: 1. Complete 7-10 days of ABX 2. Solumedrol -> Prednisone taper at discharge 3. Mobilize as tolerated; monitor clinically; okay to d/c home pulm-monique; f/u w / Dr. León in 1-2 weeks Plan of care reviewed w/ patient, he understands/agrees Subjective Date of service: 12/09/16 Principal diagnosis: COPD exacerbation Interval history: No events. SOB back to baseline. Cough better. No wheezing. Ambulating. Objective Vital Signs - 12hr 12/09/16 12/09/16 12/09/16 07:43 07:44 07:53 Temperature Pulse Rate Pulse Rate [ 68 61 Anterior Bilateral Throughout] Pulse Rate [ Left Radial] Pulse Rate [ Left] Respiratory Rate Respiratory 20 20 Rate [Anterior Bilateral Throughout] Blood Pressure Blood Pressure [Left Arm] O2 Sat by Pulse 96 Oximetry 12/09/16 12/09/16 12/09/16 08:00 09:35 10:00 Temperature 96.4 F L Pulse Rate 72 Pulse Rate [ Anterior Bilateral Throughout] Pulse Rate [ 70 Left Radial] Pulse Rate [ 66 Left] Respiratory 20 15 Rate Respiratory Rate [Anterior Bilateral Throughout] Blood Pressure 118/61 Blood Pressure 109/60 [Left Arm] O2 Sat by Pulse 94 Oximetry 12/09/16 11:30 Temperature 98.0 F Pulse Rate Pulse Rate [ Anterior Bilateral Throughout] Pulse Rate [ Left Radial] Pulse Rate [ 77 Left] Respiratory 20 Rate Respiratory Rate [Anterior Bilateral Throughout] Blood Pressure Blood Pressure 140/68 [Left Arm] O2 Sat by Pulse 97 Oximetry Constitutional: no acute distress, alert Eyes: non-icteric ENT: oropharynx moist Neck: supple Effort: normal Ascultation: Bilateral: clear Cardiovascular: regular rate and rhythm (no mrg) Gastrointestinal: normoactive bowel sounds, soft, non-tender, non-distended Integumentary: normal Extremities: no cyanosis, no edema, pink and warm Neurologic: normal mental status, non-focal exam, pupils equal and round, CN II- XII normal Psychiatric: mood appropriate, affect normal CBC and BMP: 12/06/16 19:24 01/07/17 19:24 ABG, PT/INR, D-dimer: PT/INR, D-dimer D-Dimer 194.49 ng/mlDDU (0-234) 12/07/16 00:47 Abnormal lab findings: Abnormal Labs 12/07/16 12/07/16 12/07/16 06:22 11:50 16:18 POC Glucose 318 H 290 H 378 H 12/07/16 12/08/16 12/08/16 21:20 06:18 12:01 POC Glucose 254 H 115 H 252 H 12/08/16 12/08/16 12/09/16 16:41 21:38 06:11 POC Glucose 217 H 241 H 135 H 12/09/16 11:22 POC Glucose 320 H Chest x-ray: report reviewed, image reviewed
== END 2016-12-09 14:18 | disposition home or self-care (01) | DRG 189 ==
LOC: ED 16:57 → 3A 12-07 00:29
PROVIDERS: ADMIT Internal Medicine; ATTEND Internal Medicine
DX: J96.21 Acute and chronic respiratory failure with hypoxia (principal); J44.0 Chronic obstructive pulmonary disease with (acute) lower respiratory infection; I42.9 Cardiomyopathy, unspecified; J44.1 Chronic obstructive pulmonary disease with (acute) exacerbation; E11.9 Type 2 diabetes mellitus without complications; I10 Essential (primary) hypertension; M19.041 Primary osteoarthritis, right hand; M17.11 Unilateral primary osteoarthritis, right knee; J20.9 Acute bronchitis, unspecified; G47.33 Obstructive sleep apnea (adult) (pediatric); Z88.8 Allergy status to other drugs, medicaments and biological substances; Z99.81 Dependence on supplemental oxygen; Z98.890 Other specified postprocedural states; Z87.891 Personal history of nicotine dependence; Z79.4 Long term (current) use of insulin; Z79.899 Other long term (current) drug therapy; Z83.3 Family history of diabetes mellitus; Z82.49 Family history of ischemic heart disease and other diseases of the circulatory system
CPT/HCPCS: 36415; 71020; 80048; 82550; 82553; 82962; 83880; 84484; 85025; 85379; 93005; 93010; 94640; 94644; 94760; 96372; 96374; 96375; A9270-GY; J0456; J1815; J1818; J2920; J2930; J7050

== ENCOUNTER 2016-12-22 22:03 | Emergency (ER) | payer MEDICARE ==
[2016-12-22 23:06] LABS: Basophils % (Auto) 0.4 % (0.0-1.8); Eosinophils % (Auto) 0.7 % (0.0-4.3); Hematocrit 34.9 % (35.5-45.6); Hemoglobin 11.6 gm/dl (11.8-15.2); Mean Corpuscular HGB Conc 33 % (32-34); Mean Corpuscular Hemoglobin 29 pg (28-32); Mean Corpuscular Volume 87 fl (84-94); Platelet Count 122 K/mm3 (140-440); Red Blood Count 4.02 M/mm3 (3.65-5.03); Red Cell Distribution Width 16.4 % (13.2-15.2); White Blood Count 7.5 K/mm3 (4.5-11.0)
[2016-12-22 23:29] LABS: Anion Gap 19 mmol/L; BUN/Creatinine Ratio 28.75; Blood Urea Nitrogen 23 mg/dL (9-20); Calcium 8.9 mg/dL (8.4-10.2); Carbon Dioxide 23 mmol/L (22-30); Glucose 307 mg/dL (75-100); Potassium 4.6 mmol/L (3.6-5.0); Sodium 133 mmol/L (137-145)
[2016-12-22] MEDS ORDERED: DUONEB 0.5 MG-3 MG/3 ML SOLN IH ONE (23:32)
--- NOTE | 2016-12-22 23:40 | Emergency Department Report ---
ED Shortness of Breath HPI - General Chief Complaint: Dyspnea/Respdistress Stated Complaint: SOB Time Seen by Provider: 12/22/16 23:26 Source: patient, EMS Mode of arrival: Stretcher Limitations: No Limitations - History of Present Illness Initial Comments: 71-year-old male with history of diabetes, COPD on 3 L nasal cannula at home percent today because of shortness of breath. Patient states that symptoms got very severe this morning and is having difficult time catching his breath. Has no associated chest pain, palpitations, fever, nausea, vomiting. Patient does have an associated cough that is nonproductive. Patient is a long-time smoker and quit about 3 years ago. - Related Data Home Medications Medication Instructions Recorded Confirmed Last Taken Ipratropium/Albuterol Sulfate 1 spray IH QID 06/18/15 12/02/15 10/11/15 [Combivent Respimat] Previous Rx's Medication Instructions Recorded Last Taken Type Amoxicillin/K Clav Tab [Augmentin 1 tab PO Q12HR #20 tab 10/16/15 Unknown Rx 875 mg] predniSONE [Deltasone] 50 mg PO QDAY #10 tab 10/16/15 Unknown Rx ALBUTEROL Inhaler [ProAir HFA 2 puff IH QID PRN #1 inha 04/30/16 1 Day Ago Rx Inhaler] Aspirin [Aspirin BABY CHEW TAB] 81 mg PO QDAY #30 tab.chew 04/30/16 1 Day Ago Rx 81 AtorvaSTATin [Lipitor] 40 mg PO QPM #30 tablet 04/30/16 1 Day Ago Rx 40 Canagliflozin [Invokana] 300 mg PO DAILY #30 tablet 04/30/16 1 Day Ago Rx 300 Escitalopram [Lexapro] 10 mg PO DAILY #30 tablet 04/30/16 1 Day Ago Rx 10 Insulin Glargine [Lantus VIAL] 28 unit SUB-Q QHS #100 units 04/30/16 1 Day Ago Rx Insulin Glulisine [Apidra] See Protocol SQ TIDWM #100 units 04/30/16 1 Day Ago Rx Lisinopril [Zestril TAB] 10 mg PO QDAY #30 tablet 04/30/16 1 Day Ago Rx 10 Metformin HCl [Glucophage] 1,000 mg PO BID #60 tablet 04/30/16 1 Day Ago Rx 1000 Sitagliptin Phosphate [Januvia] 100 mg PO DAILY #30 tablet 04/30/16 1 Day Ago Rx 100 amLODIPine [Norvasc] 5 mg PO DAILY #30 tablet 04/30/16 1 Day Ago Rx 5 Loratadine [Claritin] 10 mg PO QDAY #10 tablet 10/24/16 1 Day Ago Rx 10 Azithromycin [Zithromax Z-DEVORA] 250 mg PO DAILY #4 tab 12/09/16 Unknown Rx Ipratropium/Albuterol Sulfate 1 spray IH QID #1 mist.inhal 12/09/16 Unknown Rx [Combivent Respimat] Prednisone [predniSONE 10 mg 10 mg PO .TAPER #1 tab.ds.pk 12/09/16 Unknown Rx (6-Day Pack, 21 Tabs)] ALBUTEROL Inhaler [ProAir HFA 2 puff IH QID PRN #1 inhalation 12/23/16 Unknown Rx Inhaler] Sulfamethoxazole/Trimethoprim 1 each PO BID #10 tablet 12/23/16 Unknown Rx [Bactrim DS TAB] predniSONE [Deltasone] 50 mg PO QDAY #4 tab 12/23/16 Unknown Rx Allergies Allergy/AdvReac Type Severity Reaction Status Date / Time benazepril HCl Allergy Rash Verified 09/21/14 16:29 [From Lotensin] theophylline AdvReac Unknown Verified 09/21/14 16:29 ED Review of Systems ROS: Stated complaint: SOB Other details as noted in HPI Comment: All other systems reviewed and negative Respiratory: cough, shortness of breath, SOB with exertion, SOB at rest Cardiovascular: denies: chest pain Gastrointestinal: denies: abdominal pain, vomiting Skin: denies: rash Psychiatric: denies: anxiety ED Past Medical Hx - Past Medical History Previous Medical History?: Yes Hx Hypertension: Yes Hx Diabetes: Yes (1993) Hx Arthritis: Yes (right knee hands) Hx Kidney Stones: Yes Hx COPD: Yes (home O2 2 Lpm [place]) Additional medical history: 'bundle branch block', respiratory failure, intubated x 5. last pneumovax 12/01/2016. last flu shot 12/01/2016. sleep apnea /needs CPAP - Surgical History Past Surgical History?: Yes Additional Surgical History: hernia repair. kidney stones removed - Social History Smoking Status: Unknown if ever smoked Substance Use Type: None - Medications Home Medications: Home Medications Medication Instructions Recorded Confirmed Last Taken Type Ipratropium/Albuterol Sulfate 1 spray IH QID 06/18/15 12/02/15 10/11/15 History [Combivent Respimat] Amoxicillin/K Clav Tab [Augmentin 1 tab PO Q12HR #20 tab 10/16/15 12/02/15 Unknown Rx 875 mg] predniSONE [Deltasone] 50 mg PO QDAY #10 tab 10/16/15 12/02/15 Unknown Rx ALBUTEROL Inhaler [ProAir HFA 2 puff IH QID PRN #1 inha 04/30/16 12/07/16 1 Day Ago Rx Inhaler] Aspirin [Aspirin BABY CHEW TAB] 81 mg PO QDAY #30 tab.chew 04/30/16 12/07/16 1 Day Ago Rx 81 AtorvaSTATin [Lipitor] 40 mg PO QPM #30 tablet 04/30/16 12/07/16 1 Day Ago Rx 40 Canagliflozin [Invokana] 300 mg PO DAILY #30 tablet 04/30/16 12/07/16 1 Day Ago Rx 300 Escitalopram [Lexapro] 10 mg PO DAILY #30 tablet 04/30/16 12/07/16 1 Day Ago Rx 10 Insulin Glargine [Lantus VIAL] 28 unit SUB-Q QHS #100 units 04/30/16 12/07/16 1 Day Ago Rx Insulin Glulisine [Apidra] See Protocol SQ TIDWM #100 units 04/30/16 12/07/16 1 Day Ago Rx Lisinopril [Zestril TAB] 10 mg PO QDAY #30 tablet 04/30/16 12/07/16 1 Day Ago Rx 10 Metformin HCl [Glucophage] 1,000 mg PO BID #60 tablet 04/30/16 12/07/16 1 Day Ago Rx 1000 Sitagliptin Phosphate [Januvia] 100 mg PO DAILY #30 tablet 04/30/16 12/07/16 1 Day Ago Rx 100 amLODIPine [Norvasc] 5 mg PO DAILY #30 tablet 04/30/16 12/07/16 1 Day Ago Rx 5 Loratadine [Claritin] 10 mg PO QDAY #10 tablet 10/24/16 12/07/16 1 Day Ago Rx 10 Azithromycin [Zithromax Z-DEVORA] 250 mg PO DAILY #4 tab 12/09/16 Unknown Rx Ipratropium/Albuterol Sulfate 1 spray IH QID #1 mist.inhal 12/09/16 Unknown Rx [Combivent Respimat] Prednisone [predniSONE 10 mg 10 mg PO .TAPER #1 tab.ds.pk 12/09/16 Unknown Rx (6-Day Pack, 21 Tabs)] ALBUTEROL Inhaler [ProAir HFA 2 puff IH QID PRN #1 inhalation 12/23/16 Unknown Rx Inhaler] Sulfamethoxazole/Trimethoprim 1 each PO BID #10 tablet 12/23/16 Unknown Rx [Bactrim DS TAB] predniSONE [Deltasone] 50 mg PO QDAY #4 tab 12/23/16 Unknown Rx ED Physical Exam - General Limitations: No Limitations General appearance: alert, other (mild respiratory distress) - Head Head exam: Present: atraumatic - ENT ENT exam: Present: normal exam - Respiratory Respiratory exam: Present: other (mild end expiratory wheeze, mild respiratory distress, tachypneic). Absent: respiratory distress - Cardiovascular Cardiovascular Exam: Present: regular rate, normal rhythm - GI/Abdominal GI/Abdominal exam: Present: soft. Absent: distended, tenderness - Psychiatric Psychiatric exam: Present: normal affect - Skin Skin exam: Present: intact ED Course Vital Signs 12/22/16 12/22/16 12/22/16 22:25 22:48 22:50 Pulse Rate 94 H 105 H Pulse Rate [ Bilateral Throughout] Respiratory 20 23 Rate Respiratory Rate [Bilateral Throughout] Blood Pressure 116/66 O2 Sat by Pulse 98 97 97 Oximetry 12/22/16 12/22/16 12/22/16 22:54 22:56 23:00 Pulse Rate 89 91 H 90 Pulse Rate [ Bilateral Throughout] Respiratory 26 H 22 22 Rate Respiratory Rate [Bilateral Throughout] Blood Pressure O2 Sat by Pulse 99 99 98 Oximetry 12/22/16 12/22/16 12/22/16 23:06 23:09 23:10 Pulse Rate 90 88 Pulse Rate [ Bilateral Throughout] Respiratory 26 H 29 H Rate Respiratory Rate [Bilateral Throughout] Blood Pressure 116/61 116/61 O2 Sat by Pulse 98 98 Oximetry 12/22/16 12/22/16 12/22/16 23:11 23:24 23:26 Pulse Rate 90 92 H 84 Pulse Rate [ Bilateral Throughout] Respiratory 22 24 27 H Rate Respiratory Rate [Bilateral Throughout] Blood Pressure 116/61 116/61 116/61 O2 Sat by Pulse 98 98 98 Oximetry 12/22/16 12/22/16 12/22/16 23:30 23:36 23:40 Pulse Rate 87 Pulse Rate [ Bilateral Throughout] Respiratory 24 14 20 Rate Respiratory Rate [Bilateral Throughout] Blood Pressure 127/70 127/70 127/70 O2 Sat by Pulse 97 Oximetry 12/22/16 12/22/16 12/22/16 23:45 23:50 23:56 Pulse Rate 80 Pulse Rate [ Bilateral Throughout] Respiratory 37 H 27 H 24 Rate Respiratory Rate [Bilateral Throughout] Blood Pressure 112/67 112/67 112/67 O2 Sat by Pulse 98 Oximetry 12/23/16 12/23/16 12/23/16 00:00 00:06 00:10 Pulse Rate 81 79 75 Pulse Rate [ Bilateral Throughout] Respiratory 29 H 22 15 Rate Respiratory Rate [Bilateral Throughout] Blood Pressure 112/67 122/63 O2 Sat by Pulse 98 97 96 Oximetry 12/23/16 12/23/16 12/23/16 00:15 00:20 00:26 Pulse Rate 75 74 78 Pulse Rate [ 72 Bilateral Throughout] Respiratory 37 H 8 L 21 Rate Respiratory 16 Rate [Bilateral Throughout] Blood Pressure 127/67 122/63 122/63 O2 Sat by Pulse 97 100 100 Oximetry 12/23/16 00:30 Pulse Rate 76 Pulse Rate [ 78 Bilateral Throughout] Respiratory 25 H Rate Respiratory 16 Rate [Bilateral Throughout] Blood Pressure 123/66 O2 Sat by Pulse 98 Oximetry - Reevaluation(s) Reevaluation #1: 12/23/16 00:54 Patient reassessed, in no respiratory distress, no wheezing, saturating 99% on 3 L nasal cannula Reevaluation #2: 12/23/16 01:41 Discussed results of the patient, patient feels comfortable going home now that he feels better. We will send home with steroids, Bactrim (patient has a slightly prolonged QT so we'll avoid azithromycin). ABG is also reviewed and was unremarkable, no hypercapnia. 12/23/16 01:42 ED Medical Decision Making - Lab Data Result diagrams: 12/22/16 22:40 12/22/16 22:40 - Medical Decision Making Likely COPD exacerbation IV, labs, IV fluids, chest x-ray, duonebs, methylprednisolone Labs show some hyperglycemia, mild thrombocytopenia EKG done by EMS and shows sinus rhythm with left bundle-branch block without Sgarbossa criteria being met EKG performed here shows normal sinus rhythm with a left bundle branch block without Sgarbossa criteria being met Chest x-ray shows no pneumothorax, no effusion, no acute abnormalities Critical care attestation.: If time is entered above; I have spent that time in minutes in the direct care of this critically ill patient, excluding procedure time. ED Disposition Clinical Impression: COPD with acute exacerbation Disposition: DISCHARGED TO HOME OR SELFCARE Is pt being admited?: No Does the pt Need Aspirin: No Condition: Stable Instructions: Chronic Obstructive Pulmonary Disease (ED) Additional Instructions: Please follow-up with your primary care doctor in the next 3-5 days. Return to the emergency room if your difficulty breathing worsens, you develop a fever, have chest pain or any new symptoms. Prescriptions: Sulfamethoxazole/Trimethoprim [Bactrim DS TAB] 1 each PO BID #10 tablet predniSONE [Deltasone] 50 mg PO QDAY #4 tab ALBUTEROL Inhaler [ProAir HFA Inhaler] 2 puff IH QID PRN #1 inhalation PRN Reason: Shortness Of Breath Referrals: PRIMARY CARE, [Primary Care Provider] - 3-5 Days
[2016-12-23 00:38] VITALS: BP 123/66
[2016-12-23 00:58] LABS: ISTAT Base Excess -2; ISTAT HCO3 22.3; ISTAT PCO2 34.7 (35-45); ISTAT PH 7.416 (7.35-7.45); ISTAT PO2 82 (80-105); ISTAT SO2 96; ISTAT TCO2 23
--- NOTE | 2016-12-23 10:02 | XRay Report ---
CHEST X-RAY, 2 VIEWS: HISTORY: Shortness of breath. FINDINGS: Mild hyperinflation is noted. The lungs are clear, otherwise. Heart size and pulmonary vascularity are within normal limits. No evidence for pneumonia, CHF or pneumothorax. IMPRESSION: Emphysematous changes. No acute change since 12/06/16.
== END 2016-12-23 01:16 | disposition home or self-care (01) ==
LOC: ED 22:03
DX: J44.1 Chronic obstructive pulmonary disease with (acute) exacerbation (principal); I10 Essential (primary) hypertension; E11.9 Type 2 diabetes mellitus without complications; M19.90 Unspecified osteoarthritis, unspecified site; Z79.82 Long term (current) use of aspirin; Z79.4 Long term (current) use of insulin; Z88.8 Allergy status to other drugs, medicaments and biological substances
CPT/HCPCS: 36415; 71020; 80048; 82803; 83880; 84484; 85025; 93005; 93010; 94640; 96374; 99284; J2930

== ENCOUNTER 2017-03-21 22:21 | Emergency (ER) | payer MEDICARE ==
[2017-03-21] MEDS ORDERED: PROVENTIL IH ONE (22:44)
[2017-03-21] MEDS ORDERED: ATROVENT IH ONE (22:44)
[2017-03-21] MEDS ORDERED: MAGNESIUM SULFATE 2GM/50ML 2 GM/50 ML BAG IV ONE (22:44)
[2017-03-21] MEDS ORDERED: TORADOL IV ONE (22:45)
[2017-03-21] MEDS ORDERED: NACL 0.9% 250ML 250 ML IV ONE (22:45)
--- NOTE | 2017-03-21 22:48 | Emergency Department Report ---
ED Shortness of Breath HPI - General Chief Complaint: Dyspnea/Respdistress Stated Complaint: DIFFICULTY IN BREATHING Time Seen by Provider: 03/21/17 22:35 Source: patient, family, EMS (ems notes not available at time of chart dictation), RN notes reviewed, old records reviewed Limitations: Physical Limitation - History of Present Illness Initial Comments: This is a 71-year-old male. I have previously evaluated him. Primary care Dr.: Dr. Quiroz Pulmonology: Dr. Alcantara Past medical history: COPD on home oxygen This is a 71-year-old male. I have evaluated him in the past. He is brought to the hospital by EMS for COPD exacerbation. The patient reports cough, wheezing, mucus production, shortness of breath. There is no chest pain. There is no leg pain. There is no leg swelling. No recent trips greater than 4 hours. No recent hospital admissions. The patient reports subacute onset of sacroiliac pain and paralumbar back pain. This apparently present for about a week. The pain does not radiate anywhere. There is no bladder or bowel retention or incontinence. There is no cavity weakness. There is no extremity numbness. The patient reports that he saw his primary care doctor for this about a week ago, had x-rays which demonstrate a DJD, and was started on Tylenol No. 3. He further reports that his symptoms today are similar to prior episodes of COPD. MD Complaint: shortness of breath, cough -: Gradual Consistency: constant Improves With: oxygen, rest, bronchodilators, upright position Worsens With: lying flat, exertion Known History Of: COPD Treatments Prior to Arrival: oxygen, bronchodilator - Related Data Home Oxygen Therapy: Yes Home Oxygen Amount: 3 Liters Home Medications Medication Instructions Recorded Confirmed Last Taken Escitalopram [Lexapro] 10 mg PO DAILY 03/22/17 03/22/17 03/21/17 Sitagliptin Phosphate [Januvia] 100 mg PO DAILY 03/22/17 03/22/17 03/21/17 Previous Rx's Medication Instructions Recorded Last Taken Type AtorvaSTATin [Lipitor] 40 mg PO QPM #30 tablet 04/30/16 03/21/17 Rx Canagliflozin [Invokana] 300 mg PO DAILY #30 tablet 04/30/16 03/21/17 Rx Insulin Glargine [Lantus VIAL] 28 unit SUB-Q QHS #100 units 04/30/16 03/21/17 Rx Insulin Glulisine [Apidra] See Protocol SQ TIDWM #100 units 04/30/16 03/21/17 Rx Lisinopril [Zestril TAB] 10 mg PO QDAY #30 tablet 04/30/16 03/21/17 Rx Metformin HCl [Glucophage] 1,000 mg PO BID #60 tablet 04/30/16 03/21/17 Rx amLODIPine [Norvasc] 5 mg PO DAILY #30 tablet 04/30/16 03/21/17 Rx Ipratropium/Albuterol Sulfate 1 spray IH QID #1 mist.inhal 12/09/16 03/21/17 Rx [Combivent Respimat] Albuterol Sulfate [Albuterol 0.63% 0.63 mg IH Q4HR PRN #2 ml 03/22/17 Unknown Rx NEBS] Albuterol Sulfate [Proair 90 mcg IH Q4HR PRN #2 aer.pow.ba 03/22/17 Unknown Rx Respiclick] Azithromycin [Zithromax Z-DEVORA] 250 mg PO QDAY #4 tablet 03/22/17 Unknown Rx Ipratropium [place] [Atrovent Hfa] 12.9 gm IH Q4HR #2 hfa.aer.ad 03/22/17 Unknown Rx Ipratropium [Atrovent NEB] 0.5 mg IH Q4HR #2 ml 03/22/17 Unknown Rx predniSONE [Deltasone] 40 mg PO QDAY #8 tab 03/22/17 Unknown Rx Allergies Allergy/AdvReac Type Severity Reaction Status Date / Time benazepril HCl Allergy Rash Verified 09/21/14 16:29 [From Lotensin] theophylline AdvReac Unknown Verified 09/21/14 16:29 ED Review of Systems ROS: Stated complaint: DIFFICULTY IN BREATHING Other details as noted in HPI Constitutional: denies: fever Eyes: denies: vision change ENT: denies: epistaxis Respiratory: cough, shortness of breath, SOB with exertion, wheezing Cardiovascular: dyspnea on exertion Gastrointestinal: denies: abdominal pain Genitourinary: as per HPI Musculoskeletal: as per HPI Skin: as per HPI Neurological: denies: headache Psychiatric: as per HPI ED Past Medical Hx - Past Medical History Hx Hypertension: Yes Hx Diabetes: Yes (1993) Hx Arthritis: Yes (right knee hands) Hx Kidney Stones: Yes Hx COPD: Yes (home O2 2 Lpm [place]) Additional medical history: 'bundle branch block', respiratory failure, intubated x 5. last pneumovax 12/01/2016. last flu shot 12/01/2016. sleep apnea /needs CPAP - Surgical History Additional Surgical History: hernia repair. kidney stones removed - Social History Smoking Status: Unknown if ever smoked Substance Use Type: None - Medications Home Medications: Home Medications Medication Instructions Recorded Confirmed Last Taken Type AtorvaSTATin [Lipitor] 40 mg PO QPM #30 tablet 04/30/16 03/22/17 03/21/17 Rx Canagliflozin [Invokana] 300 mg PO DAILY #30 tablet 04/30/16 03/22/17 03/21/17 Rx Insulin Glargine [Lantus VIAL] 28 unit SUB-Q QHS #100 units 04/30/16 03/22/17 Rx Insulin Glulisine [Apidra] See Protocol SQ TIDWM #100 units 04/30/16 03/22/17 Rx Lisinopril [Zestril TAB] 10 mg PO QDAY #30 tablet 04/30/16 03/22/17 03/21/17 Rx Metformin HCl [Glucophage] 1,000 mg PO BID #60 tablet 04/30/16 03/22/17 Rx amLODIPine [Norvasc] 5 mg PO DAILY #30 tablet 04/30/16 03/22/17 03/21/17 Rx Ipratropium/Albuterol Sulfate 1 spray IH QID #1 mist.inhal 12/09/16 03/22/17 Rx [Combivent Respimat] Albuterol Sulfate [Albuterol 0.63% 0.63 mg IH Q4HR PRN #2 ml 03/22/17 Unknown Rx NEBS] Albuterol Sulfate [Proair 90 mcg IH Q4HR PRN #2 aer.pow.ba 03/22/17 Unknown Rx Respiclick] Azithromycin [Zithromax Z-DEVORA] 250 mg PO QDAY #4 tablet 03/22/17 Unknown Rx Escitalopram [Lexapro] 10 mg PO DAILY 03/22/17 03/22/17 03/21/17 History Ipratropium [place] [Atrovent Hfa] 12.9 gm IH Q4HR #2 hfa.aer.ad 03/22/17 Unknown Rx Ipratropium [Atrovent NEB] 0.5 mg IH Q4HR #2 ml 03/22/17 Unknown Rx Sitagliptin Phosphate [Januvia] 100 mg PO DAILY 03/22/17 03/22/17 03/21/17 History predniSONE [Deltasone] 40 mg PO QDAY #8 tab 03/22/17 Unknown Rx ED Physical Exam - General Limitations: Physical Limitation General appearance: alert, in no apparent distress - Head Head exam: Present: atraumatic, normocephalic - Eye Eye exam: Present: normal appearance, EOMI. Absent: nystagmus - ENT ENT exam: Present: normal exam, normal orophraynx, mucous membranes moist, normal external ear exam - Neck Neck exam: Present: normal inspection, full ROM. Absent: tenderness, meningismus - Respiratory Respiratory exam: Present: respiratory distress, wheezes, rhonchi, accessory muscle use - Cardiovascular Cardiovascular Exam: Present: regular rate, normal rhythm, normal heart sounds. Absent: bradycardia, tachycardia, irregular rhythm, systolic murmur, diastolic murmur, rubs, gallop - GI/Abdominal GI/Abdominal exam: Present: soft, normal bowel sounds. Absent: distended, tenderness, guarding, rebound, rigid, pulsatile mass - Rectal Rectal exam: Present: deferred - Extremities Exam Extremities exam: Present: normal inspection, full ROM, normal capillary refill. Absent: tenderness, pedal edema, joint swelling, calf tenderness - Back Exam Back exam: Present: normal inspection, full ROM, paraspinal tenderness, other ( there is reproducible paralumbar pain. There is no midline back pain. There is reproducible tenderness at the bilateral sacroiliac joints.). Absent: tenderness, CVA tenderness (R), CVA tenderness (L), muscle spasm - Neurological Exam Neurological exam: Present: alert, oriented X3, other (Extraocular movements intact. Tongue midline. No facial droop. Facial sensation intact to light touch in the V1, V2, V3 distribution bilaterally. 5 and 5 strength in 4 extremities.. Sensation is intact to light touch in 4 extremities.). Absent: motor sensory deficit - Psychiatric Psychiatric exam: Present: anxious - Skin Skin exam: Present: warm, dry, intact, normal color. Absent: rash ED Course Vital Signs 03/21/17 03/21/17 03/21/17 22:30 23:14 23:34 Temperature 98.4 F Pulse Rate Pulse Rate [ 60 Anterior Bilateral Throughout] Respiratory 18 Rate Respiratory 22 Rate [Anterior Bilateral Throughout] Blood Pressure 120/63 Blood Pressure [Left] O2 Sat by Pulse 96 Oximetry 03/21/17 03/22/17 03/22/17 23:43 00:00 00:06 Temperature 98.4 F Pulse Rate 83 Pulse Rate [ 85 Anterior Bilateral Throughout] Respiratory 22 22 Rate Respiratory 17 Rate [Anterior Bilateral Throughout] Blood Pressure Blood Pressure 120/63 [Left] O2 Sat by Pulse 96 96 Oximetry - Reevaluation(s) Reevaluation #1: 03/21/17 22:53 differential diagnosis: Bronchitis, pneumonia, COPD exacerbation , congestive heart failure, acute coronary syndrome Assessment and plan: 71-year-old male with probable COPD exacerbation. There are no pulmonary embolus or DVT risk factors, he is low risk by well's criteria. He is chest pain-free at this time. I have evaluated him in the past for similar symptoms. Also has a component of what appears to be mild sacroiliac discomfort. No clinical indication of epidural compression syndrome. There are 2+ pulses and 4 extremity, there is no pulsatile abdominal mass, I think AAA is very unlikely. We will treat him with albuterol, Atrovent, steroids, magnesium, ketorolac, IV fluid. Reassess after interventions. Reevaluation #2: 03/22/17 00:34 The patient is reassessed by me multiple times while in the emergency department. After receiving albuterol, Atrovent, magnesium, steroids, Toradol, the patient is able to walk around the ER on 3 L of oxygen (which is his baseline) without severe shortness of breath. He saturates approximately 93-94% . He reports that he feels much improved. He wants to go home. I have had an extensive discussion with the patient and his daughter. They feel comfortable to go home. They both appear to be reliable. Given that the patient has clinically improved markedly, that he has a family member with him, but he appears to be reliable, I think that this plan of care is reasonable. He will be discharged at this time with appropriate prescriptions. Return precautions are extensively reviewed. ED Medical Decision Making - Lab Data Result diagrams: 03/21/17 22:56 03/21/17 22:56 - EKG Data Interpretation: unchanged when compared t 03/21/17 23:19 normal sinus, 70 beats per minute, QTC 503 ms, left bundle branch block, not morphologically consistent with STEMI, appears unchanged from prior EKG from 12/22/2016. - Radiology Data Radiology results: report reviewed, image reviewed X-ray of the chest demonstrates hyperinflation, atelectasis in the right lower lung field, remaining lungs are clear, no acute disease, appears unchanged from prior. Critical care attestation.: If time is entered above; I have spent that time in minutes in the direct care of this critically ill patient, excluding procedure time. ED Disposition Clinical Impression: COPD exacerbation Disposition: DISCHARGED TO HOME OR SELFCARE Is pt being admited?: No Does the pt Need Aspirin: No Condition: Stable Instructions: Chronic Obstructive Pulmonary Disease (ED) Additional Instructions: Take the medications as directed. Follow-up with your primary care doctor or computer system validation specialist within the next 3-5 days. Return to the ER right away with worsening shortness of breath, intractable nausea or vomiting, fevers or chills, inability to tolerate liquid feeds, new, worsening or different symptoms. Continue current outpatient medications. Prescriptions: Albuterol Sulfate [Albuterol 0.63% NEBS] 0.63 mg IH Q4HR PRN #2 ml PRN Reason: Wheezing Albuterol Sulfate [Proair Respiclick] 90 mcg IH Q4HR PRN #2 aer.pow.ba PRN Reason: Wheezing Azithromycin [Zithromax Z-DEVORA] 250 mg PO QDAY #4 tablet Ipratropium [Atrovent NEB] 0.5 mg IH Q4HR #2 ml Ipratropium [place] [Atrovent Hfa] 12.9 gm IH Q4HR #2 hfa.aer.ad predniSONE [Deltasone] 40 mg PO QDAY #8 tab Referrals: PRIMARY CAREMD [Primary Care Provider] - 3-5 Days KASSIDY DE LEÓN MD [Staff Physician] - 3-5 Days
[2017-03-21 23:15] LABS: Eosinophils % (Auto) 10.6 % (0.0-4.3); Hematocrit 34.5 % (35.5-45.6); Hemoglobin 11.2 gm/dl (11.8-15.2); Mean Corpuscular HGB Conc 32 % (32-34); Mean Corpuscular Hemoglobin 28 pg (28-32); Mean Corpuscular Volume 86 fl (84-94); Platelet Count 116 K/mm3 (140-440); Red Blood Count 4.02 M/mm3 (3.65-5.03); Red Cell Distribution Width 15.4 % (13.2-15.2)
[2017-03-21 23:26] LABS: INR 1.11 (0.87-1.13)
[2017-03-21 23:31] LABS: Anion Gap 17 mmol/L; Blood Urea Nitrogen 12 mg/dL (9-20); Calcium 8.5 mg/dL (8.4-10.2); Carbon Dioxide 25 mmol/L (22-30); Glucose 289 mg/dL (75-100); Magnesium 1.3 mg/dL (1.7-2.3); Potassium 3.5 mmol/L (3.6-5.0); Sodium 139 mmol/L (137-145)
--- NOTE | 2017-03-21 23:42 | XRay Report ---
FINAL REPORT PROCEDURE: XR CHEST 1V AP TECHNIQUE: Chest radiograph anteroposterior view. CPT 88849 HISTORY: Dyspnea COMPARISON: 05/01/2016 FINDINGS: Heart: Normal. Mediastinum/Vessels: Normal. Lungs/Pleural space: Minimal atelectasis right lower lung. No effusion or pneumothorax.. Bony thorax: No acute osseous abnormality. Life support devices: None. IMPRESSION: Mild atelectasis right lower lung. The remaining lungs are clear..
[2017-03-21 23:43] VITALS: BP 120/63
[2017-03-22] MEDS ORDERED: ZITHROMAX PO ONE (00:34)
== END 2017-03-22 01:36 | disposition home or self-care (01) ==
LOC: ED 22:21
DX: J44.1 Chronic obstructive pulmonary disease with (acute) exacerbation (principal); I10 Essential (primary) hypertension; E11.9 Type 2 diabetes mellitus without complications; M19.90 Unspecified osteoarthritis, unspecified site; Z79.4 Long term (current) use of insulin; Z88.8 Allergy status to other drugs, medicaments and biological substances
CPT/HCPCS: 36415; 71010; 80048; 83735; 83880; 84484; 85025; 85610; 93005; 93010; 94640; 96365; 96375; 99285; J1885; J2930; J3475; J7050

== ENCOUNTER 2017-05-09 23:32 | Emergency (ER) | payer MEDICARE ==
[2017-05-10 00:33] LABS: Basophils % (Auto) 0.6 % (0.0-1.8); Eosinophils % (Auto) 6.4 % (0.0-4.3); Hematocrit 36.6 % (35.5-45.6); Mean Corpuscular HGB Conc 33 % (32-34); Mean Corpuscular Hemoglobin 28 pg (28-32); Mean Corpuscular Volume 86 fl (84-94); Platelet Count 105 K/mm3 (140-440); Red Blood Count 4.26 M/mm3 (3.65-5.03); Red Cell Distribution Width 15.8 % (13.2-15.2); White Blood Count 6.9 K/mm3 (4.5-11.0)
[2017-05-10 00:40] LABS: Creatine Kinase MB 1.7 ng/mL (0.0-4.0)
[2017-05-10 00:42] LABS: Alanine Aminotransferase 21 units/L (7-56); Albumin 3.9 g/dL (3.9-5); Albumin/Globulin Ratio 1.9 %; Alkaline Phosphatase 89 units/L (35-129); Anion Gap 22 mmol/L; Blood Urea Nitrogen 16 mg/dL (9-20); Calcium 9.2 mg/dL (8.4-10.2); Carbon Dioxide 23 mmol/L (22-30); Chloride 97.5 mmol/L (98-107); Glucose 294 mg/dL (75-100); Potassium 3.8 mmol/L (3.6-5.0); Sodium 139 mmol/L (137-145)
[2017-05-10 00:44] LABS: INR 1.04 (0.87-1.13); Partial Thromboplastin Time 26.5 Sec. (24.2-36.6)
--- NOTE | 2017-05-10 00:52 | Emergency Department Report ---
ED Shortness of Breath HPI - General Chief Complaint: Dyspnea/Respdistress Stated Complaint: sob copd Time Seen by Provider: 05/09/17 23:50 Source: patient, family Mode of arrival: Stretcher Limitations: No Limitations - History of Present Illness MD Complaint: shortness of breath -: Gradual Severity: moderate Consistency: intermittent Improves With: oxygen, rest Worsens With: exertion Known History Of: COPD, diabetes Treatments Prior to Arrival: oxygen, bronchodilator - Related Data Home Oxygen Therapy: Yes Home Oxygen Amount: 2 Liters Home Medications Medication Instructions Recorded Confirmed Last Taken Escitalopram [Lexapro] 10 mg PO DAILY 03/22/17 05/09/17 03/21/17 Sitagliptin Phosphate [Januvia] 100 mg PO DAILY 03/22/17 05/09/17 03/21/17 Previous Rx's Medication Instructions Recorded Last Taken Type AtorvaSTATin [Lipitor] 40 mg PO QPM #30 tablet 04/30/16 03/21/17 Rx Canagliflozin [Invokana] 300 mg PO DAILY #30 tablet 04/30/16 03/21/17 Rx Insulin Glargine [Lantus VIAL] 28 unit SUB-Q QHS #100 units 04/30/16 03/21/17 Rx Insulin Glulisine [Apidra] See Protocol SQ TIDWM #100 units 04/30/16 03/21/17 Rx Lisinopril [Zestril TAB] 10 mg PO QDAY #30 tablet 04/30/16 03/21/17 Rx Metformin HCl [Glucophage] 1,000 mg PO BID #60 tablet 04/30/16 03/21/17 Rx amLODIPine [Norvasc] 5 mg PO DAILY #30 tablet 04/30/16 03/21/17 Rx Ipratropium/Albuterol Sulfate 1 spray IH QID #1 mist.inhal 12/09/16 03/21/17 Rx [Combivent Respimat] Albuterol Sulfate [Albuterol 0.63% 0.63 mg IH Q4HR PRN #2 ml 03/22/17 Unknown Rx NEBS] Albuterol Sulfate [Proair 90 mcg IH Q4HR PRN #2 aer.pow.ba 03/22/17 Unknown Rx Respiclick] Ipratropium [place] [Atrovent Hfa] 12.9 gm IH Q4HR #2 hfa.aer.ad 03/22/17 Unknown Rx Ipratropium [Atrovent NEB] 0.5 mg IH Q4HR #2 ml 03/22/17 Unknown Rx Cefdinir 300 mg PO BID #20 capsule 05/10/17 Unknown Rx predniSONE [Deltasone] 40 mg PO QDAY #10 tab 05/10/17 Unknown Rx Allergies Allergy/AdvReac Type Severity Reaction Status Date / Time benazepril HCl Allergy Rash Verified 09/21/14 16:29 [From Lotensin] theophylline AdvReac Unknown Verified 09/21/14 16:29 ED Review of Systems ROS: Stated complaint: DIFFICULTY BREATHING Other details as noted in HPI Comment: Unobtainable due to pts medical conditions Constitutional: no symptoms reported, see HPI. denies: chills Eyes: as per HPI. denies: eye pain ENT: as per HPI. denies: ear pain, throat pain Respiratory: no symptoms reported, see HPI, shortness of breath, SOB with exertion. denies: cough, orthopnea, SOB at rest, stridor, wheezing Cardiovascular: as per HPI, dyspnea on exertion. denies: chest pain, palpitations, orthopnea, edema, syncope, paroxysmal nocturnal dyspnea Endocrine: no symptoms reported, see HPI. denies: excessive sweating, flushing , intolerance to cold, intolerance to heat Gastrointestinal: as per HPI. denies: abdominal pain, nausea, vomiting Genitourinary: as per HPI. denies: urgency, dysuria Musculoskeletal: as per HPI. denies: back pain Skin: as per HPI. denies: rash, lesions Neurological: as per HPI. denies: headache, weakness, numbness, paresthesias, confusion Psychiatric: as per HPI. denies: anxiety, depression Hematological/Lymphatic: as per HPI. denies: easy bleeding ED Past Medical Hx - Past Medical History Previous Medical History?: Yes Hx Hypertension: Yes Hx CVA: No Hx Heart Attack/AMI: Yes Hx Congestive Heart Failure: No Hx Diabetes: Yes (1993) Hx Deep Vein Thrombosis: No Hx Pulmonary Embolism: No Hx GERD: No Hx Liver Disease: No Hx Renal Disease: No Hx of Cancer: No Hx Sickle Cell Disease: No Hx Arthritis: Yes (right knee hands) Hx Headaches / Migraines: No Hx Seizures: No Hx Kidney Stones: Yes Hx Psychiatric Treatment: No Hx Asthma: No Hx COPD: Yes (home O2 2 Lpm [place]) Hx Tuberculosis: No Hx Dementia: No Hx HIV: No Additional medical history: 'bundle branch block', respiratory failure, intubated x 5. last pneumovax 12/01/2016. last flu shot 12/01/2016. sleep apnea /needs CPAP - Surgical History Past Surgical History?: Yes Hx Coronary Stent: No Hx Open Heart Surgery: No Hx Pacemaker: No Hx Internal Defibrillator: No Hx Cholecystectomy: No Hx Appendectomy: No Hx Breast Surgery: No Additional Surgical History: hernia repair. kidney stones removed. cataracts - Family History Family history: no significant - Social History Smoking Status: Former Smoker Substance Use Type: None - Medications Home Medications: Home Medications Medication Instructions Recorded Confirmed Last Taken Type AtorvaSTATin [Lipitor] 40 mg PO QPM #30 tablet 04/30/16 05/09/17 03/21/17 Rx Canagliflozin [Invokana] 300 mg PO DAILY #30 tablet 04/30/16 05/09/17 03/21/17 Rx Insulin Glargine [Lantus VIAL] 28 unit SUB-Q QHS #100 units 04/30/16 05/09/17 Rx Insulin Glulisine [Apidra] See Protocol SQ TIDWM #100 units 04/30/16 05/09/17 Rx Lisinopril [Zestril TAB] 10 mg PO QDAY #30 tablet 04/30/16 05/09/17 03/21/17 Rx Metformin HCl [Glucophage] 1,000 mg PO BID #60 tablet 04/30/16 05/09/17 Rx amLODIPine [Norvasc] 5 mg PO DAILY #30 tablet 04/30/16 03/22/17 03/21/17 Rx Ipratropium/Albuterol Sulfate 1 spray IH QID #1 mist.inhal 12/09/16 05/09/17 Rx [Combivent Respimat] Albuterol Sulfate [Albuterol 0.63% 0.63 mg IH Q4HR PRN #2 ml 03/22/17 Unknown Rx NEBS] Albuterol Sulfate [Proair 90 mcg IH Q4HR PRN #2 aer.pow.ba 03/22/17 Unknown Rx Respiclick] Escitalopram [Lexapro] 10 mg PO DAILY 03/22/17 05/09/17 03/21/17 History Ipratropium [place] [Atrovent Hfa] 12.9 gm IH Q4HR #2 hfa.aer.ad 03/22/17 Unknown Rx Ipratropium [Atrovent NEB] 0.5 mg IH Q4HR #2 ml 03/22/17 05/09/17 Unknown Rx Sitagliptin Phosphate [Januvia] 100 mg PO DAILY 03/22/17 05/09/17 03/21/17 History Cefdinir 300 mg PO BID #20 capsule 05/10/17 Unknown Rx predniSONE [Deltasone] 40 mg PO QDAY #10 tab 05/10/17 Unknown Rx ED Physical Exam - General Limitations: No Limitations General appearance: alert - Head Head exam: Present: atraumatic - Eye Eye exam: Present: normal appearance, EOMI Pupils: Present: normal accommodation - ENT ENT exam: Present: normal exam, mucous membranes moist, other (nasal congestion) - Neck Neck exam: Present: normal inspection. Absent: tenderness, meningismus, full ROM, lymphadenopathy, thyromegaly - Respiratory Respiratory exam: Present: wheezes (b uppper r > l). Absent: respiratory distress (no inc wob), rales, rhonchi, stridor, chest wall tenderness, accessory muscle use, decreased breath sounds, prolonged expiratory - Cardiovascular Cardiovascular Exam: Present: regular rate, tachycardia, normal heart sounds, other (ac lbbb). Absent: systolic murmur, diastolic murmur, rubs, clicks, JVD, S3, S4 - GI/Abdominal GI/Abdominal exam: Present: soft. Absent: distended, tenderness, guarding, rebound, rigid, normal bowel sounds, diminished bowel sounds - Rectal Rectal exam: Absent: deferred - exam: Absent: normal inspection External exam: Present: normal external exam - Extremities Exam Extremities exam: Present: normal inspection, full ROM, normal capillary refill. Absent: tenderness, pedal edema, joint swelling, calf tenderness - Back Exam Back exam: Present: normal inspection, full ROM. Absent: tenderness, CVA tenderness (R), CVA tenderness (L) - Neurological Exam Neurological exam: Present: alert, altered, oriented X3, CN II-XII intact, normal gait, reflexes normal. Absent: abnormal gait, motor sensory deficit - Psychiatric Psychiatric exam: Present: normal affect, normal mood. Absent: depressed, agitated, anxious, flat affect, manic, homicidal ideation, suicidal ideation - Skin Skin exam: Present: warm, dry, intact, normal color. Absent: rash, cyanosis, diaphoretic, erythema, urticaria, vesicles, petechiae, pallor, abrasion, ecchymosis ED Course Vital Signs 05/09/17 05/10/17 05/10/17 23:43 01:13 01:15 Temperature 98.4 F Pulse Rate 104 H Pulse Rate [ 80 80 Right Lower Lobe] Respiratory 26 H Rate Respiratory 18 18 Rate [Right Lower Lobe] Blood Pressure 115/62 Blood Pressure 115/62 [Right] O2 Sat by Pulse 95 Oximetry - Reevaluation(s) Reevaluation #1: 05/10/17 01:33 xray noted labs noted rt tx Mag- pt states always helps him no cp This is his usual copd ae lbbb is old Reevaluation #2: 05/10/17 01:42 on reexam hr 84 duoneb in process. feels better plan: rx and dc home ED Medical Decision Making - Lab Data Result diagrams: 05/10/17 00:04 05/10/17 00:04 - EKG Data -: EKG Interpreted by Me EKG shows normal: sinus rhythm Rate: normal - EKG Data When compared to previous EKG there are: no significant change Interpretation: unchanged when compared t, other (lbbb) - Radiology Data Radiology results: image reviewed cxr nap - Medical Decision Making copd ae trop neg 12 lead known lbbb no cp labs noted cath noted from 14 rt tx solumedrol Mg dc home w fu on Thursday w Rocael Critical care attestation.: If time is entered above; I have spent that time in minutes in the direct care of this critically ill patient, excluding procedure time. ED Disposition Clinical Impression: COPD with acute exacerbation, Diabetes 1.5, managed as type 1, Hyperglycemia Disposition: OP ADMIT IP TO THIS HOSP Is pt being admited?: No Does the pt Need Aspirin: No Condition: Stable Instructions: Chronic Obstructive Pulmonary Disease (ED), Diabetes Mellitus Type 2 in Adults (ED) Additional Instructions: rest take home meds and oxygen as instructed continue home meds meds as ordered here tonight diabetic diet follow blood sugar follow up Dr Cote on Thursday Referrals: PRIMARY CARE, [Primary Care Provider] - 3-5 Days KASSIDY DE LEÓN MD [Staff Physician] - 3-5 Days Time of Disposition: 01:39
[2017-05-10] MEDS ORDERED: DUONEB 0.5 MG-3 MG/3 ML SOLN IH ONE ×2 (01:09)
[2017-05-10] MEDS ORDERED: MAGNESIUM SULFATE 2GM/50ML 2 GM/50 ML BAG IV ONE (01:10)
[2017-05-10 03:07] VITALS: BP 108/77
--- NOTE | 2017-05-10 09:52 | XRay Report ---
ROUTINE CHEST, TWO VIEWS: HISTORY: Dyspnea. Compared to 03/21/17. The lungs are mildly hyperinflated. Linear atelectasis is noted in the middle lobe. Heart size and pulmonary vascularity are within normal limits. No consolidation, large pleural effusion or pneumothorax. IMPRESSION: Hyperinflation. No acute process.
== END 2017-05-10 02:55 | disposition admitted as inpatient to this hospital (09) ==
LOC: ED 23:32
DX: J44.1 Chronic obstructive pulmonary disease with (acute) exacerbation (principal); E10.65 Type 1 diabetes mellitus with hyperglycemia; I10 Essential (primary) hypertension; I50.9 Heart failure, unspecified; M19.90 Unspecified osteoarthritis, unspecified site; Z87.891 Personal history of nicotine dependence; Z88.8 Allergy status to other drugs, medicaments and biological substances
CPT/HCPCS: 36415; 71020; 80053; 82550; 82553; 82962; 83735; 84484; 85025; 85610; 85730; 93005; 93010; 94640; 96365; 96375; 99285; J2930; J3475

== ENCOUNTER 2017-08-07 21:19 | Emergency (ER) | payer MEDICARE ==
[2017-08-07] MEDS ORDERED: ATROVENT IH ONE (21:38)
[2017-08-07] MEDS ORDERED: PROVENTIL IH ONE (21:38)
[2017-08-07] MEDS ORDERED: MAGNESIUM SULFATE 2GM/50ML 2 GM/50 ML BAG IV ONE (21:38)
--- NOTE | 2017-08-07 21:44 | Emergency Department Report ---
ED Shortness of Breath HPI - General Chief Complaint: Dyspnea/Respdistress Stated Complaint: JASMIN Time Seen by Provider: 08/07/17 21:33 Source: patient Mode of arrival: Ambulatory Limitations: No Limitations - History of Present Illness Initial Comments: 72 yo Male with a past medical history COPD dependent on 3 L O2 when necessary, diabetes, bundle-branch block, intubation 5 presents to the hospital with complaints of worsening shortness of breath and wheezing today. No relief of home nebulized treatments. Patient denies cough, fever, chest pain, or leg edema. Not currently on steroids. PMD: [facility]. Nursing Home Social Worker, Dr. Malcolm - Related Data Home Medications Medication Instructions Recorded Confirmed Last Taken Escitalopram [Lexapro] 10 mg PO DAILY 03/22/17 05/09/17 03/21/17 Sitagliptin Phosphate [Januvia] 100 mg PO DAILY 03/22/17 05/09/17 03/21/17 Previous Rx's Medication Instructions Recorded Last Taken Type AtorvaSTATin [Lipitor] 40 mg PO QPM #30 tablet 04/30/16 03/21/17 Rx Canagliflozin [Invokana] 300 mg PO DAILY #30 tablet 04/30/16 03/21/17 Rx Insulin Glargine [Lantus VIAL] 28 unit SUB-Q QHS #100 units 04/30/16 03/21/17 Rx Insulin Glulisine [Apidra] See Protocol SQ TIDWM #100 units 04/30/16 03/21/17 Rx Lisinopril [Zestril TAB] 10 mg PO QDAY #30 tablet 04/30/16 03/21/17 Rx Metformin HCl [Glucophage] 1,000 mg PO BID #60 tablet 04/30/16 03/21/17 Rx amLODIPine [Norvasc] 5 mg PO DAILY #30 tablet 04/30/16 03/21/17 Rx Ipratropium/Albuterol Sulfate 1 spray IH QID #1 mist.inhal 12/09/16 03/21/17 Rx [Combivent Respimat] Albuterol Sulfate [Albuterol 0.63% 0.63 mg IH Q4HR PRN #2 ml 03/22/17 Unknown Rx NEBS] Albuterol Sulfate [Proair 90 mcg IH Q4HR PRN #2 aer.pow.ba 03/22/17 Unknown Rx Respiclick] Ipratropium [place] [Atrovent Hfa] 12.9 gm IH Q4HR #2 hfa.aer.ad 03/22/17 Unknown Rx Ipratropium [Atrovent NEB] 0.5 mg IH Q4HR #2 ml 03/22/17 Unknown Rx Cefdinir 300 mg PO BID #20 capsule 05/10/17 Unknown Rx predniSONE [Deltasone] 40 mg PO QDAY #10 tab 05/10/17 Unknown Rx Prednisone [predniSONE 10 mg 10 mg PO .TAPER #1 tab.ds.pk 08/08/17 Unknown Rx (6-Day Pack, 21 Tabs)] Allergies Allergy/AdvReac Type Severity Reaction Status Date / Time benazepril HCl Allergy Rash Verified 09/21/14 16:29 [From Lotensin] theophylline AdvReac Unknown Verified 09/21/14 16:29 ED Review of Systems ROS: Stated complaint: JASMIN Other details as noted in HPI Comment: All other systems reviewed and negative Other: Constitutional: No fevers chills Eyes: No eye pain visual changes or discharge ENT: No ear pain or throat pain Neck: Denies pain Respiratory: Denies cough Cardiovascular: Denies chest pain, palpitations, syncope GI: Denies abdominal pain, nausea, vomiting, diarrhea : Denies dysuria Musculoskeletal: Denies back pain Skin: Denies rash, lesions, erythema Neurologic: Denies headache, numbness, weakness Psychiatric: Denies suicidal ideation, hallucinations ED Past Medical Hx - Past Medical History Previous Medical History?: Yes Hx Hypertension: Yes Hx CVA: No Hx Heart Attack/AMI: Yes Hx Congestive Heart Failure: No Hx Diabetes: Yes (1993) Hx Deep Vein Thrombosis: No Hx Pulmonary Embolism: No Hx GERD: No Hx Liver Disease: No Hx Renal Disease: No Hx Sickle Cell Disease: No Hx Arthritis: Yes (right knee hands) Hx Headaches / Migraines: No Hx Seizures: No Hx Kidney Stones: Yes Hx Psychiatric Treatment: No Hx Asthma: No Hx COPD: Yes (home O2 2 Lpm [place]) Hx Tuberculosis: No Hx Dementia: No Hx HIV: No Additional medical history: left bundle branch block, respiratory failure, intubated x 5. last pneumovax 12/01/2016. last flu shot 12/01/2016. sleep apnea /needs CPAP - Surgical History Past Surgical History?: Yes Hx Coronary Stent: No Hx Open Heart Surgery: No Hx Pacemaker: No Hx Internal Defibrillator: No Hx Cholecystectomy: No Hx Appendectomy: No Hx Breast Surgery: No Additional Surgical History: hernia repair. kidney stones removed. cataracts - Social History Smoking Status: Former Smoker Substance Use Type: Prescribed - Medications Home Medications: Home Medications Medication Instructions Recorded Confirmed Last Taken Type AtorvaSTATin [Lipitor] 40 mg PO QPM #30 tablet 04/30/16 05/09/17 03/21/17 Rx Canagliflozin [Invokana] 300 mg PO DAILY #30 tablet 04/30/16 05/09/17 03/21/17 Rx Insulin Glargine [Lantus VIAL] 28 unit SUB-Q QHS #100 units 04/30/16 05/09/17 Rx Insulin Glulisine [Apidra] See Protocol SQ TIDWM #100 units 04/30/16 05/09/17 Rx Lisinopril [Zestril TAB] 10 mg PO QDAY #30 tablet 04/30/16 05/09/17 03/21/17 Rx Metformin HCl [Glucophage] 1,000 mg PO BID #60 tablet 04/30/16 05/09/17 Rx amLODIPine [Norvasc] 5 mg PO DAILY #30 tablet 04/30/16 03/22/17 03/21/17 Rx Ipratropium/Albuterol Sulfate 1 spray IH QID #1 mist.inhal 12/09/16 05/09/17 Rx [Combivent Respimat] Albuterol Sulfate [Albuterol 0.63% 0.63 mg IH Q4HR PRN #2 ml 03/22/17 Unknown Rx NEBS] Albuterol Sulfate [Proair 90 mcg IH Q4HR PRN #2 aer.pow.ba 03/22/17 Unknown Rx Respiclick] Escitalopram [Lexapro] 10 mg PO DAILY 03/22/17 05/09/17 03/21/17 History Ipratropium [place] [Atrovent Hfa] 12.9 gm IH Q4HR #2 hfa.aer.ad 03/22/17 Unknown Rx Ipratropium [Atrovent NEB] 0.5 mg IH Q4HR #2 ml 03/22/17 05/09/17 Unknown Rx Sitagliptin Phosphate [Januvia] 100 mg PO DAILY 03/22/17 05/09/17 03/21/17 History Cefdinir 300 mg PO BID #20 capsule 05/10/17 Unknown Rx predniSONE [Deltasone] 40 mg PO QDAY #10 tab 05/10/17 Unknown Rx Prednisone [predniSONE 10 mg 10 mg PO .TAPER #1 tab.ds.pk 08/08/17 Unknown Rx (6-Day Pack, 21 Tabs)] ED Physical Exam - General Limitations: No Limitations - Other Other exam information: General: No limitations, patient is alert in no acute distress Head exam: Atraumatic, normocephalic Eyes exam: Normal appearance ENT: Moist mucous membrane, normal oropharynx Neck exam: Normal inspection, full range of motion, no meningismus nontender Respiratory exam: Poor air movement, expiratory wheeze, mild tachypnea and breathlessness while speaking Cardiovascular: Normal rate and rhythm, normal heart sounds Abdomen: Soft, nondistended, and nontender, with normal bowel sounds, no rebound, or guarding Extremity: Full range of motion normal inspection no deformity, no calf tenderness or edema Back: Normal Inspection, full range of motion, no tenderness Neurologic: Alert, oriented x3, cranial nerves intact, no motor or sensory deficit Psychiatric: normal affect, normal mood Skin: Warm, dry, intact ED Course Vital Signs 08/07/17 08/07/17 08/07/17 21:24 21:35 22:00 Temperature 97.5 F L Pulse Rate 94 H 94 H 79 Respiratory 26 H 22 21 Rate Blood Pressure 117/68 O2 Sat by Pulse 96 97 Oximetry 08/07/17 08/07/17 22:30 23:00 Temperature Pulse Rate 79 89 Respiratory 27 H 19 Rate Blood Pressure 120/58 120/58 O2 Sat by Pulse 97 95 Oximetry - Reevaluation(s) Reevaluation #1: 08/07/17 21:43 Albuterol, Atrovent, solumedrol magnesium 08/08/17 00:37 Patient reports feeling much better after round of meds and states he feels well enough to go home. Breath sounds are currently clear ED Medical Decision Making - Lab Data Result diagrams: 08/07/17 21:46 08/07/17 21:46 Lab Results 08/07/17 08/07/17 Range/Units 21:46 21:46 WBC 5.1 (4.5-11.0) K/mm3 RBC 4.38 (3.65-5.03) M/mm3 Hgb 12.4 (11.8-15.2) gm/dl Hct 37.0 (35.5-45.6) % MCV 85 (84-94) fl MCH 28 (28-32) pg MCHC 33 (32-34) % RDW 15.4 H (13.2-15.2) % Plt Count 136 L (140-440) K/mm3 Lymph % (Auto) 27.5 (13.4-35.0) % [place] % (Auto) 12.0 H (0.0-7.3) % Eos % (Auto) 5.1 H (0.0-4.3) % Baso % (Auto) 0.8 (0.0-1.8) % Lymph # 1.4 (1.2-5.4) K/mm3 [place] # 0.6 (0.0-0.8) K/mm3 Eos # 0.3 (0.0-0.4) K/mm3 Baso # 0.0 (0.0-0.1) K/mm3 Seg Neutrophils % 54.6 (40.0-70.0) % Seg Neutrophils # 2.8 (1.8-7.7) K/mm3 Sodium 142 (137-145) mmol/L Potassium 3.6 (3.6-5.0) mmol/L Chloride 99.9 (98-107) mmol/L Carbon Dioxide 26 (22-30) mmol/L Anion Gap 20 mmol/L BUN 23 H (9-20) mg/dL Creatinine 1.0 (0.8-1.5) mg/dL Estimated GFR > 60 ml/min BUN/Creatinine Ratio 23.00 % Glucose 149 H (75-100) mg/dL Calcium 9.8 (8.4-10.2) mg/dL Troponin T < 0.010 (0.00-0.029) ng/mL - EKG Data -: EKG Interpreted by Me (NSR 83, LBB) - EKG Data When compared to previous EKG there are: no significant change (compared to 05/10) - Radiology Data Radiology results: image reviewed (chest x-ray portable: No acute finding) - Medical Decision Making Plan to discharge patient home. Was feeling much better after ED treatment. Patient does not have any infectious symptoms and chest x-ray is unremarkable. Will be discharged on prednisone taper and to continue nebulized treatments at home - Differential Diagnosis COPD, CHF, bronchitis, pneumonia Critical Care Time: No Critical care attestation.: If time is entered above; I have spent that time in minutes in the direct care of this critically ill patient, excluding procedure time. ED Disposition Clinical Impression: COPD with acute exacerbation Disposition: DC-01 TO HOME OR SELFCARE Is pt being admited?: No Does the pt Need Aspirin: No Condition: Stable Instructions: Chronic Obstructive Pulmonary Disease (ED) Additional Instructions: Take the medication as prescribed. Return if symptoms worsen. Monitor your sugars closely because your glucose may be elevated while taking the steroids. Prescriptions: Prednisone [predniSONE 10 mg (6-Day Pack, 21 Tabs)] 10 mg PO .TAPER #1 tab.ds.pk Referrals: CLIVE CHOWDHURY MD [Primary Care Provider] - 3-5 Days KASSIDY DE LEÓN MD [Staff Physician] - 3-5 Days Time of Disposition: 00:38
[2017-08-07 21:59] LABS: Basophils % (Auto) 0.8 % (0.0-1.8); Eosinophils % (Auto) 5.1 % (0.0-4.3); Hemoglobin 12.4 gm/dl (11.8-15.2); Mean Corpuscular HGB Conc 33 % (32-34); Mean Corpuscular Hemoglobin 28 pg (28-32); Mean Corpuscular Volume 85 fl (84-94); Platelet Count 136 K/mm3 (140-440); Red Blood Count 4.38 M/mm3 (3.65-5.03); Red Cell Distribution Width 15.4 % (13.2-15.2); White Blood Count 5.1 K/mm3 (4.5-11.0)
[2017-08-07 22:16] LABS: Anion Gap 20 mmol/L; Blood Urea Nitrogen 23 mg/dL (9-20); Calcium 9.8 mg/dL (8.4-10.2); Carbon Dioxide 26 mmol/L (22-30); Chloride 99.9 mmol/L (98-107); Glucose 149 mg/dL (75-100); Potassium 3.6 mmol/L (3.6-5.0); Sodium 142 mmol/L (137-145)
[2017-08-08 00:43] VITALS: BP 117/53
--- NOTE | 2017-08-08 09:23 | XRay Report ---
Single view chest: Compared to 05/10/17. History: Shortness of breath. COPD. Findings: Borderline cardiomegaly. Trachea is midline. Suspicion of mild emphysema. No consolidation, pneumothorax or pleural effusion. Impression: Suspicion of emphysema. No acute lung changes.
== END 2017-08-08 00:45 | disposition home or self-care (01) ==
LOC: ED 21:19
DX: J44.1 Chronic obstructive pulmonary disease with (acute) exacerbation (principal); I10 Essential (primary) hypertension; I25.2 Old myocardial infarction; E11.9 Type 2 diabetes mellitus without complications; M19.90 Unspecified osteoarthritis, unspecified site; I44.7 Left bundle-branch block, unspecified; Z98.890 Other specified postprocedural states; Z87.891 Personal history of nicotine dependence; Z79.4 Long term (current) use of insulin; Z88.9 Allergy status to unspecified drugs, medicaments and biological substances
CPT/HCPCS: 36415; 71010; 80048; 84484; 85025; 93005; 93010; 96365; 96375; 99284; J2930; J3475

== ENCOUNTER 2018-08-13 21:17 | Inpatient (IN) | payer MEDICARE ==
--- NOTE | 2018-08-13 21:50 | Emergency Department Report ---
ED Shortness of Breath HPI - General Chief Complaint: Dyspnea/Respdistress Stated Complaint: JASMIN Time Seen by Provider: 08/13/18 21:33 Source: patient, EMS Mode of arrival: Stretcher Limitations: No Limitations - History of Present Illness Initial Comments: Mr. Hull is a73 yo male with hx of COPD, oxygen dependence, hypertension, diabetes, depression who presents with severe shortness of breath beginning 6 hours prior to arrival. Patient had wheezing with nonproductive cough. He had subjective fever at home with sweats. He denies any chest pain or abdominal pain. Room air saturation according to EMR 92% Hx of intubation Hx of cardiac arrest He uses oxygen as needed. Formerly used CPAP. Former smoker. No history of significant heart disease according to his report. No previous history of OK or significant coronary disease. [facility] [place] [facility] Supervisor Dr. Mcduffie Computer Repairer Dr. Thapa retired from [employer] after 30+years of service, also formerly worked at [employer], is here at the bedside MD Complaint: shortness of breath -: Gradual, hour(s) (6) Severity: moderate Improves With: bronchodilators, medication Known History Of: COPD, recurrent pnemonia Associated Symptoms: fever, cough - Related Data Home Medications Medication Instructions Recorded Confirmed Last Taken Escitalopram [Lexapro] 10 mg PO DAILY 03/22/17 01/07/18 03/21/17 Sitagliptin Phosphate [Januvia] 100 mg PO DAILY 03/22/17 01/07/18 03/21/17 AtorvaSTATin [Lipitor] 40 mg PO HS 01/07/18 01/07/18 Unknown Fluticasone [Flonase] 50 mcg INHALATION DAILY PRN 01/07/18 01/07/18 Unknown Ipratropium/Albuterol Sulfate 1 puff PO QID 01/07/18 01/07/18 Unknown [Combivent Respimat] Lisinopril [Zestril] 20 mg PO DAILY 01/07/18 01/07/18 Unknown Lispro Insulin [Humalog] 10 ml SQ AC 01/07/18 01/07/18 Unknown Vit B12/Folic Acid/B6/Aa No.15 1 each PO DAILY 01/07/18 01/07/18 Unknown [Glycotrol Capsule] Previous Rx's Medication Instructions Recorded Last Taken Type Canagliflozin [Invokana] 300 mg PO DAILY #30 tablet 04/30/16 03/21/17 Rx Insulin Glargine [Lantus VIAL] 28 unit SUB-Q QHS #100 units 04/30/16 03/21/17 Rx Metformin HCl [Glucophage] 1,000 mg PO BID #60 tablet 04/30/16 03/21/17 Rx amLODIPine [Norvasc] 5 mg PO DAILY #30 tablet 04/30/16 03/21/17 Rx ALBUTEROL NEB's [Proventil 0.083% 2.5 mg IH Q4H PRN #180 neb 01/10/18 Unknown Rx NEBS] ALBUTEROL NEB's [Proventil 0.083% 2.5 mg IH Q4H PRN #180 nebu 01/10/18 Unknown Rx NEBS] Azithromycin 250 mg PO DAILY #3 tablet 01/10/18 Unknown Rx Azithromycin [Zithromax TAB] 250 mg PO QDAY #3 tablet 01/10/18 Unknown Rx Budesonide/Formoterol Fumarate 10.2 gm IH BID #1 hfa.aer.ad 01/10/18 Unknown Rx [Symbicort 80-4.5 Mcg Inhaler] Budesonide/Formoterol Fumarate 10.2 gm IH BID #1 hfa.aer.ad 01/10/18 Unknown Rx [Symbicort 80-4.5 Mcg Inhaler] Ipratropium [Atrovent NEB] 0.5 mg IH Q4HR PRN #180 ml 01/10/18 Unknown Rx Ipratropium [Atrovent NEB] 0.5 mg IH Q4HR PRN #180 ml 01/10/18 Unknown Rx Prednisone [predniSONE 10 mg 10 mg PO .TAPER #1 tab.ds.pk 01/10/18 Unknown Rx (6-Day Pack, 21 Tabs)] Allergies Allergy/AdvReac Type Severity Reaction Status Date / Time benazepril HCl AdvReac Rash Verified 01/08/18 09:40 [From Lotensin] theophylline AdvReac Unknown Verified 09/21/14 16:29 ED Review of Systems ROS: Stated complaint: JASMIN Other details as noted in HPI Comment: All other systems reviewed and negative Constitutional: fever, malaise Respiratory: cough Cardiovascular: denies: chest pain Gastrointestinal: denies: abdominal pain ED Past Medical Hx - Past Medical History Previous Medical History?: Yes Hx Hypertension: Yes Hx Heart Attack/AMI: No (cardiac arrest, mild CAD 30%) Hx Diabetes: Yes (1993) Hx Arthritis: Yes (right knee hands) Hx Kidney Stones: Yes Hx COPD: Yes (home O2 2 Lpm [place]) Additional medical history: left bundle branch block, respiratory failure, intubated x 5. last pneumovax 12/01/2016. last flu shot 12/01/2016. sleep apnea /needs CPAP - Surgical History Past Surgical History?: Yes Additional Surgical History: hernia repair. kidney stones removed. cataracts - Social History Smoking Status: Former Smoker Substance Use Type: Alcohol - Medications Home Medications: Home Medications Medication Instructions Recorded Confirmed Last Taken Type Canagliflozin [Invokana] 300 mg PO DAILY #30 tablet 04/30/16 01/07/18 03/21/17 Rx Insulin Glargine [Lantus VIAL] 28 unit SUB-Q QHS #100 units 04/30/16 01/07/18 Rx Metformin HCl [Glucophage] 1,000 mg PO BID #60 tablet 04/30/16 01/07/18 Rx amLODIPine [Norvasc] 5 mg PO DAILY #30 tablet 04/30/16 01/07/18 03/21/17 Rx Escitalopram [Lexapro] 10 mg PO DAILY 03/22/17 01/07/18 03/21/17 History Sitagliptin Phosphate [Januvia] 100 mg PO DAILY 03/22/17 01/07/18 03/21/17 History AtorvaSTATin [Lipitor] 40 mg PO HS 01/07/18 01/07/18 Unknown History Fluticasone [Flonase] 50 mcg INHALATION DAILY PRN 01/07/18 01/07/18 Unknown History Ipratropium/Albuterol Sulfate 1 puff PO QID 01/07/18 01/07/18 Unknown History [Combivent Respimat] Lisinopril [Zestril] 20 mg PO DAILY 01/07/18 01/07/18 Unknown History Lispro Insulin [Humalog] 10 ml SQ AC 01/07/18 01/07/18 Unknown History Vit B12/Folic Acid/B6/Aa No.15 1 each PO DAILY 01/07/18 01/07/18 Unknown History [Glycotrol Capsule] ALBUTEROL NEB's [Proventil 0.083% 2.5 mg IH Q4H PRN #180 neb 01/10/18 Unknown Rx NEBS] ALBUTEROL NEB's [Proventil 0.083% 2.5 mg IH Q4H PRN #180 nebu 01/10/18 Unknown Rx NEBS] Azithromycin 250 mg PO DAILY #3 tablet 01/10/18 Unknown Rx Azithromycin [Zithromax TAB] 250 mg PO QDAY #3 tablet 01/10/18 Unknown Rx Budesonide/Formoterol Fumarate 10.2 gm IH BID #1 hfa.aer.ad 01/10/18 Unknown Rx [Symbicort 80-4.5 Mcg Inhaler] Budesonide/Formoterol Fumarate 10.2 gm IH BID #1 hfa.aer.ad 01/10/18 Unknown Rx [Symbicort 80-4.5 Mcg Inhaler] Ipratropium [Atrovent NEB] 0.5 mg IH Q4HR PRN #180 ml 01/10/18 Unknown Rx Ipratropium [Atrovent NEB] 0.5 mg IH Q4HR PRN #180 ml 01/10/18 Unknown Rx Prednisone [predniSONE 10 mg 10 mg PO .TAPER #1 tab.ds.pk 01/10/18 Unknown Rx (6-Day Pack, 21 Tabs)] ED Physical Exam - General Limitations: No Limitations General appearance: alert, in no apparent distress, other (talkative appears mildly ill mild work of breathing) - Head Head exam: Present: atraumatic, normocephalic - Eye Eye exam: Present: normal appearance - ENT ENT exam: Present: mucous membranes moist - Neck Neck exam: Present: normal inspection. Absent: tenderness, meningismus - Respiratory Respiratory exam: Present: wheezes, decreased breath sounds, prolonged expiratory. Absent: rales, rhonchi, accessory muscle use - Cardiovascular Cardiovascular Exam: Present: regular rate, normal rhythm, tachycardia. Absent : systolic murmur, diastolic murmur, rubs, gallop - GI/Abdominal GI/Abdominal exam: Present: soft, normal bowel sounds. Absent: distended, tenderness, guarding, rebound - Rectal Rectal exam: Present: deferred - Extremities Exam Extremities exam: Present: full ROM - Neurological Exam Neurological exam: Present: alert, oriented X3 - Psychiatric Psychiatric exam: Present: normal affect, normal mood - Skin Skin exam: Present: dry, intact, normal color, other (very warm to touch). Absent: rash ED Course Vital Signs 08/13/18 08/13/18 08/13/18 21:25 21:35 22:00 Temperature 101.4 F H Pulse Rate 121 H 116 H Respiratory 23 23 18 Rate Blood Pressure 99/59 92/48 O2 Sat by Pulse 94 94 94 Oximetry 08/13/18 08/13/18 08/13/18 22:30 23:00 23:22 Temperature 99.0 F Pulse Rate 105 H 100 H Respiratory 18 14 Rate Blood Pressure 106/56 107/58 O2 Sat by Pulse 94 97 Oximetry 08/13/18 08/14/18 08/14/18 23:30 00:00 00:20 Temperature Pulse Rate 101 H 98 H 97 H Respiratory 15 22 19 Rate Blood Pressure 96/59 106/56 107/46 O2 Sat by Pulse 96 95 96 Oximetry 08/14/18 08/14/18 08/14/18 00:30 01:00 01:30 Temperature Pulse Rate 94 H 94 H 90 Respiratory 13 20 22 Rate Blood Pressure 97/46 100/50 114/63 O2 Sat by Pulse 95 96 95 Oximetry ED Medical Decision Making - Lab Data Result diagrams: 08/13/18 21:48 08/13/18 21:48 Laboratory Results - last 24 hr 08/13/18 08/13/18 08/13/18 21:48 21:48 21:48 WBC 5.6 RBC 4.34 Hgb 12.3 Hct 37.2 MCV 86 MCH 28 MCHC 33 RDW 16.0 H Plt Count 110 L Lymph % (Auto) 13.8 [place] % (Auto) 15.4 H Eos % (Auto) 3.2 Baso % (Auto) 0.6 Lymph # 0.8 L [place] # 0.9 H Eos # 0.2 Baso # 0.0 Seg Neutrophils % 67.0 Seg Neutrophils # 3.7 Sodium 132 L Potassium 4.0 Chloride 96.1 L Carbon Dioxide 20 L Anion Gap 20 BUN 26 H Creatinine 1.0 Estimated GFR > 60 BUN/Creatinine Ratio 26 Glucose 168 H Lactic Acid Calcium 8.9 Total Bilirubin 0.90 AST 20 ALT 15 Alkaline Phosphatase 78 Troponin T < 0.010 Total Protein 6.2 L Albumin 3.9 Albumin/Globulin Ratio 1.7 08/14/18 00:00 WBC RBC Hgb Hct MCV MCH MCHC RDW Plt Count Lymph % (Auto) [place] % (Auto) Eos % (Auto) Baso % (Auto) Lymph # [place] # Eos # Baso # Seg Neutrophils % Seg Neutrophils # Sodium Potassium Chloride Carbon Dioxide Anion Gap BUN Creatinine Estimated GFR BUN/Creatinine Ratio Glucose Lactic Acid 1.20 Calcium Total Bilirubin AST ALT Alkaline Phosphatase Troponin T Total Protein Albumin Albumin/Globulin Ratio - EKG Data 08/13/18 21:49 Time Obtained 2135 Sinus tachycardia rate 120 beats a minute normal axis wide QRS left bundle branch block no signifcant ST elevation - Medical Decision Making Ms. Hull presents with COPD exacerbation and fever. No obvious infection or pneumonia on chest x-ray. Patient did receive breast with antibiotics with previous history of recurrent pneumonia and risk for pseudomonas. Admitted to hospitalist service. Tachycardia resolved. Patient is maintaining oxygen saturation on nasal cannula. I reviewed EMR. EF 45-50% mild CAD seen on heart cath 30% lesions Critical Care Time: Yes Critical care time in (mins) excluding proc time.: 40 Critical care attestation.: If time is entered above; I have spent that time in minutes in the direct care of this critically ill patient, excluding procedure time. 40 minutes of critical care time excluding procedures were used in the care of the patient. Patient required multiple assessments and interventions. I reviewed the electronic medical record. I updated the at the bedside. Nurse asked me to come to the bedside with patient's concerning history of 5 previous intubations andin cardiac arrest. I perform extensive review of electronic medical record. ED Disposition Clinical Impression: COPD with acute exacerbation, Fever Disposition: OP ADMIT IP TO THIS HOSP Is pt being admited?: Yes Does the pt Need Aspirin: No Condition: Stable Referrals: PRIMARY CARE, [Primary Care Provider] - 3-5 Days
[2018-08-13] MEDS ORDERED: NACL 0.9% 1000 ML IV ONE (21:51)
[2018-08-13] MEDS ORDERED: LEVAQUIN 750MG/150ML 750 MG/150 ML BAG IV SCH (22:00)
[2018-08-13] MEDS ORDERED: MAXIPIME/NS 2 GM/100 ML 2 GM/100 ML BAG IV SCH (22:00)
[2018-08-13 22:10] LABS: Basophils % (Auto) 0.6 % (0.0-1.8); Eosinophils # (Auto) 0.2 K/mm3 (0.0-0.4); Eosinophils % (Auto) 3.2 % (0.0-4.3); Hematocrit 37.2 % (35.5-45.6); Hemoglobin 12.3 gm/dl (11.8-15.2); Lymphocytes # (Auto) 0.8 K/mm3 (1.2-5.4); Lymphocytes % (Auto) 13.8 % (13.4-35.0); Mean Corpuscular HGB Conc 33 % (32-34); Mean Corpuscular Hemoglobin 28 pg (28-32); Mean Corpuscular Volume 86 fl (84-94); Monocytes # (Auto) 0.9 K/mm3 (0.0-0.8); Monocytes % (Auto) 15.4 % (0.0-7.3); Platelet Count 110 K/mm3 (140-440); Red Blood Count 4.34 M/mm3 (3.65-5.03)
[2018-08-13] MEDS ORDERED: TYLENOL PO ONE (22:18)
[2018-08-13 22:26] LABS: Alanine Aminotransferase 15 units/L (7-56); Albumin 3.9 g/dL (3.9-5); BUN/Creatinine Ratio 26; Blood Urea Nitrogen 26 mg/dL (9-20); Calcium 8.9 mg/dL (8.4-10.2); Hemolysis Index 13
[2018-08-13] MEDS ORDERED: NACL 0.9% 500 ML 500 ML ONE (23:33)
--- NOTE | 2018-08-14 00:08 | XRay Report ---
FINAL REPORT PROCEDURE: XR CHEST 1V AP TECHNIQUE: Chest radiograph anteroposterior view. CPT 66765 HISTORY: dyspnea COMPARISON: 01/07/2018 FINDINGS: Heart: Normal. Mediastinum/Vessels: Normal. Lungs/Pleural space: Lungs are expanded. There is a vague 7 centimeter opacity at the right lung apex which could be artifact. Mass or infiltrate not excluded. PA and lateral chest x-ray with good inspiration may be indicated. There is no pleural effusion or pneumothorax. Bony thorax: No acute osseous abnormality. Life support devices: None. IMPRESSION: The heart size is normal.. Lungs are expanded. There is a vague 7 centimeter opacity at the right lung apex which could be artifact. Mass or infiltrate not excluded. PA and lateral chest x-ray with good inspiration may be indicated. There is no pleural effusion or pneumothorax.
[2018-08-14] MEDS ORDERED: ZOFRAN IV PRN (04:25)
[2018-08-14] MEDS ORDERED: TYLENOL PO PRN (04:25)
[2018-08-14] MEDS ORDERED: SODIUM CHLORIDE FLUSH SYRINGE 10 ML IV PRN (04:25)
[2018-08-14] MEDS ORDERED: NORCO 5/325 PO PRN (04:25)
[2018-08-14] MEDS ORDERED: D50W (25GM) Syringe IV PRN (04:35)
[2018-08-14] MEDS ORDERED: NACL 0.9% 1000 ML 1,000 ML IV SCH (05:00)
--- NOTE | 2018-08-14 05:10 | XRay Report ---
FINAL REPORT EXAM: XR CHEST ROUTINE 2V HISTORY: sepsis TECHNIQUE: PA and lateral views of the chest were obtained and compared to the previous study of 08/13/2018. FINDINGS: There is stable airspace disease in the right upper lobe. The heart size is normal. The lungs are not congested. Pleural fluid is not seen. The skeletal structures reveal multilevel disc degeneration in the dorsal spine with osteoporosis. IMPRESSION: Stable nonspecific airspace disease in the right upper lobe. Neoplasia cannot be excluded. No change from the previous study.
--- NOTE | 2018-08-14 05:18 | History and Physical Report ---
History of Present Illness Date of examination: 08/14/18 Date of admission: 08/14/18 Chief complaint: Shortness of breath History of present illness: History this 73-year-old male with history of COPD who presented to the ED on account of the week history of worsening shortness of breath at rest and with mild exertion. He has associated dry cough, wheezing, subjective fever with chills and dizziness. He denies chest pain, palpitation, leg swelling, orthopnea or PND. No headaches, nausea, vomiting, syncope or loss of consciousness. No abdominal pain, constipation, diarrhea, dysuria or frequency. Past History Past Medical History: arthritis, CAD, COPD (on home oxygen 2-3 L), diabetes, hypertension, other (kidney stones) Past Surgical History: hernia repair, Other (kidney stone removal, cataract surgery) Social history: smoking (patient smoked for 50 years and quit 3 years ago. He admits to occasional alcohol use but denies illicit drug use) Family history: other (reviewed and noncontributory) Medications and Allergies Allergies Allergy/AdvReac Type Severity Reaction Status Date / Time benazepril HCl AdvReac Rash Verified 01/08/18 09:40 [From Lotensin] theophylline AdvReac Unknown Verified 09/21/14 16:29 Home Medications Medication Instructions Recorded Confirmed Last Taken Type Canagliflozin [Invokana] 300 mg PO DAILY #30 tablet 04/30/16 01/07/18 03/21/17 Rx Insulin Glargine [Lantus VIAL] 28 unit SUB-Q QHS #100 units 04/30/16 01/07/18 Rx Metformin HCl [Glucophage] 1,000 mg PO BID #60 tablet 04/30/16 01/07/18 Rx amLODIPine [Norvasc] 5 mg PO DAILY #30 tablet 04/30/16 01/07/18 03/21/17 Rx Escitalopram [Lexapro] 10 mg PO DAILY 03/22/17 01/07/18 03/21/17 History Sitagliptin Phosphate [Januvia] 100 mg PO DAILY 03/22/17 01/07/18 03/21/17 History AtorvaSTATin [Lipitor] 40 mg PO HS 01/07/18 01/07/18 Unknown History Fluticasone [Flonase] 50 mcg INHALATION DAILY PRN 01/07/18 01/07/18 Unknown History Ipratropium/Albuterol Sulfate 1 puff PO QID 01/07/18 01/07/18 Unknown History [Combivent Respimat] Lisinopril [Zestril] 20 mg PO DAILY 01/07/18 01/07/18 Unknown History Lispro Insulin [Humalog] 10 ml SQ AC 01/07/18 01/07/18 Unknown History Vit B12/Folic Acid/B6/Aa No.15 1 each PO DAILY 01/07/18 01/07/18 Unknown History [Glycotrol Capsule] ALBUTEROL NEB's [Proventil 0.083% 2.5 mg IH Q4H PRN #180 neb 01/10/18 Unknown Rx NEBS] ALBUTEROL NEB's [Proventil 0.083% 2.5 mg IH Q4H PRN #180 nebu 01/10/18 Unknown Rx NEBS] Azithromycin 250 mg PO DAILY #3 tablet 01/10/18 Unknown Rx Azithromycin [Zithromax TAB] 250 mg PO QDAY #3 tablet 01/10/18 Unknown Rx Budesonide/Formoterol Fumarate 10.2 gm IH BID #1 hfa.aer.ad 01/10/18 Unknown Rx [Symbicort 80-4.5 Mcg Inhaler] Budesonide/Formoterol Fumarate 10.2 gm IH BID #1 hfa.aer.ad 01/10/18 Unknown Rx [Symbicort 80-4.5 Mcg Inhaler] Ipratropium [Atrovent NEB] 0.5 mg IH Q4HR PRN #180 ml 01/10/18 Unknown Rx Ipratropium [Atrovent NEB] 0.5 mg IH Q4HR PRN #180 ml 01/10/18 Unknown Rx Prednisone [predniSONE 10 mg 10 mg PO .TAPER #1 tab.ds.pk 01/10/18 Unknown Rx (6-Day Pack, 21 Tabs)] Active Meds: Active Medications Acetaminophen (Tylenol) 650 mg PO Q4H PRN PRN Reason: Pain MILD(1-3)/Fever >100.5/[place] Acetaminophen/Hydrocodone Bitart ([place] 5/325) 1 each PO Q6H PRN PRN Reason: Pain, Moderate (4-6) Albuterol/Ipratropium (Duoneb *Not For Prn Use*) 1 ampul IH Q6HRT [facility] Dextrose (D50w (25gm) Syringe) 50 ml IV PRN PRN PRN Reason: Hypoglycemia Docusate Sodium (Colace) 100 mg PO BID JJ Sodium Chloride (Nacl 0.9% 1000 Ml) 1,000 mls @ 100 mls/hr IV DIRECT JJ Ceftriaxone Sodium (Rocephin/Ns 1 Gm/50 Ml) 1 gm in 50 mls @ 100 mls/hr IV Q24HR JJ; Protocol Azithromycin 500 mg/ Sodium (Chloride) 250 mls @ 250 mls/hr IV Q24HR JJ Insulin Glargine (Lantus) 10 units SUB-Q QHS JJ Insulin Human Lispro (Humalog) 0 unit SUB-Q ACHS JJ; Protocol Methylprednisolone Sodium Succinate (Solu-Medrol) 40 mg IV Q8HR JJ Ondansetron HCl (Zofran) 4 mg IV Q8H PRN PRN Reason: Nausea And Vomiting Sodium Chloride (Sodium Chloride Flush Syringe 10 Ml) 10 ml IV BID [facility] Sodium Chloride (Sodium Chloride Flush Syringe 10 Ml) 10 ml IV PRN PRN PRN Reason: LINE FLUSH Review of Systems All systems: negative (except as documented in the HPI, all other systems were reviewed and negative) Exam - Constitutional Vitals: Temp Pulse Resp BP Pulse Ox 99.0 F 86 21 112/64 95 08/13/18 23:22 08/14/18 04:30 08/14/18 04:30 08/14/18 04:30 08/14/18 04:30 General appearance: Present: no acute distress, well-nourished - EENT Eyes: Present: PERRL, EOM intact ENT: hearing intact, clear oral mucosa - Neck Neck: Present: supple, normal ROM - Respiratory Respiratory effort: normal Respiratory: bilateral: diminished - Cardiovascular Rhythm: regular Heart Sounds: Present: S1 & S2. Absent: rub, click - Extremities Extremities: pulses symmetrical, No edema - Abdominal General gastrointestinal: Present: soft, non-tender, non-distended, normal bowel sounds - Integumentary Integumentary: Present: clear, warm, dry - Musculoskeletal Musculoskeletal: gait normal, strength equal bilaterally - Psychiatric Psychiatric: appropriate mood/affect, intact judgment & insight - Neurologic Neurologic: CNII-XII intact, moves all extremities Results - Labs CBC & Chem 7: 08/13/18 21:48 08/13/18 21:48 Labs: Laboratory Last Values WBC 5.6 K/mm3 (4.5-11.0) 08/13/18 21:48 RBC 4.34 M/mm3 (3.65-5.03) 08/13/18 21:48 Hgb 12.3 gm/dl (11.8-15.2) 08/13/18 21:48 Hct 37.2 % (35.5-45.6) 08/13/18 21:48 MCV 86 fl (84-94) 08/13/18 21:48 MCH 28 pg (28-32) 08/13/18 21:48 MCHC 33 % (32-34) 08/13/18 21:48 RDW 16.0 % (13.2-15.2) H 08/13/18 21:48 Plt Count 110 K/mm3 (140-440) L 08/13/18 21:48 Lymph % (Auto) 13.8 % (13.4-35.0) 08/13/18 21:48 [place] % (Auto) 15.4 % (0.0-7.3) H 08/13/18 21:48 Eos % (Auto) 3.2 % (0.0-4.3) 08/13/18 21:48 Baso % (Auto) 0.6 % (0.0-1.8) 08/13/18 21:48 Lymph # 0.8 K/mm3 (1.2-5.4) L 08/13/18 21:48 [place] # 0.9 K/mm3 (0.0-0.8) H 08/13/18 21:48 Eos # 0.2 K/mm3 (0.0-0.4) 08/13/18 21:48 Baso # 0.0 K/mm3 (0.0-0.1) 08/13/18 21:48 Seg Neutrophils % 67.0 % (40.0-70.0) 08/13/18 21:48 Seg Neutrophils # 3.7 K/mm3 (1.8-7.7) 08/13/18 21:48 Sodium 132 mmol/L (137-145) L 08/13/18 21:48 Potassium 4.0 mmol/L (3.6-5.0) 08/13/18 21:48 Chloride 96.1 mmol/L (98-107) L 08/13/18 21:48 Carbon Dioxide 20 mmol/L (22-30) L 08/13/18 21:48 Anion Gap 20 mmol/L 08/13/18 21:48 BUN 26 mg/dL (9-20) H 08/13/18 21:48 Creatinine 1.0 mg/dL (0.8-1.5) 08/13/18 21:48 Estimated GFR > 60 ml/min 08/13/18 21:48 BUN/Creatinine Ratio 26 % 08/13/18 21:48 Glucose 168 mg/dL (75-100) H 08/13/18 21:48 Lactic Acid 1.20 mmol/L (0.7-2.0) 08/14/18 00:00 Calcium 8.9 mg/dL (8.4-10.2) 08/13/18 21:48 Total Bilirubin 0.90 mg/dL (0.1-1.2) 08/13/18 21:48 AST 20 units/L (5-40) 08/13/18 21:48 ALT 15 units/L (7-56) 08/13/18 21:48 Alkaline Phosphatase 78 units/L (35-129) 08/13/18 21:48 Troponin T < 0.010 ng/mL (0.00-0.029) 08/13/18 21:48 Total Protein 6.2 g/dL (6.3-8.2) L 08/13/18 21:48 Albumin 3.9 g/dL (3.9-5) 08/13/18 21:48 Albumin/Globulin Ratio 1.7 % 08/13/18 21:48 Assessment and Plan Assessment and plan: Sepsis probably secondary to pneumonia -On IV antibiotics with Rocephin and azithromycin -Follow up blood culture results Acute COPD exacerbation -On IV steroid, Duonebs and antibiotic Hyponatremia -On IV fluid, will monitor sodium level DM2 with hyperglycemia -On Lantus and SSI Chronic hypoxic respiratory failure -Continue oxygen supplementation as needed Hypertension, stable CAD, stable Prophylaxis -DVT prophylaxis with SCD due to thrombocytopenia Time spent: 38 minutes Disposition: Discharge will depend on clinical course
[2018-08-14] MEDS ORDERED: SOLU-Medrol ONE (05:38)
[2018-08-14] MEDS: SOLU-Medrol IV SCH ×3 (05:46→22:26)
[2018-08-14] MEDS: DUONEB *Not for PRN Use IH SCH ×3 (07:29→22:04)
[2018-08-14] MEDS: HumaLOG SUB-Q SCH ×4 (07:52→22:28)
--- NOTE | 2018-08-14 08:25 | Event Note ---
Date: 08/14/18 Patient seen and examined medical records reviewed Admitted today morning with acute on chronic respiratory failure secondary to acute exacerbation of COPD Patient complains of cough and congestion and requests for IV magnesium and reports that this medicine would help him immediately Denies any chest pain or palpitations Alert awake oriented 3 not in acute distress Vital signs reviewed Medical records reviewed Agree with the current management
[2018-08-14] MEDS: ZITHROMAX 500 MG in NACL 0.9% 250ML 250 ML IV SCH (10:59)
[2018-08-14] MEDS: ROCEPHIN/NS 1 GM/50 ML 1 GM/50 ML BAG IV SCH (10:59)
[2018-08-14] MEDS: COLACE PO SCH ×2 (10:59→22:27)
[2018-08-14] MEDS: SODIUM CHLORIDE FLUSH SYRINGE 10 ML IV SCH ×2 (11:00→22:29)
[2018-08-14] MEDS ORDERED: LASIX IV ONE (12:46)
[2018-08-14] MEDS: CLARITIN PO SCH (12:59)
[2018-08-14] MEDS ORDERED: FLONASE NS PRN (14:52)
[2018-08-14] MEDS ORDERED: MAGNESIUM SULFATE 2GM/50ML 2 GM/50 ML BAG IV ONE (16:00)
[2018-08-14 16:46] LABS: Bilirubin,Urine NEG (Negative); Blood,Urine NEG (Negative); Color,Urine Colorless (Yellow); Mucus,Urine FEW /HPF; Protein,Urine <15 mg/dL mg/dL (Negative); RBC,Urine < 1.0 /HPF (0.0-6.0); Urobilinogen,Urine < 2.0 mg/dL (<2.0); WBC,Urine < 1.0 /HPF (0.0-6.0)
[2018-08-14] MEDS ORDERED: NON-FORMULARY (Budesonide/Formoterol Fumarate [Symbicort 80-4.5 Mcg Inhaler] 10.2 GM) IH SCH (22:00)
[2018-08-14] MEDS ORDERED: LANTUS SUB-Q SCH (22:00)
[2018-08-14] MEDS: BROVANA NEBU IH SCH (22:04)
[2018-08-14] MEDS: PULMICORT IH SCH (22:04)
[2018-08-15] MEDS: SOLU-Medrol IV SCH (06:21)
[2018-08-15] MEDS: PULMICORT IH SCH (07:24)
[2018-08-15] MEDS: DUONEB *Not for PRN Use IH SCH ×3 (07:24→15:20)
[2018-08-15] MEDS: BROVANA NEBU IH SCH (07:25)
[2018-08-15] MEDS: HumaLOG SUB-Q SCH ×4 (08:00→11:45)
[2018-08-15 08:09] LABS: Basophils % (Auto) 0.1 % (0.0-1.8); Eosinophils % (Auto) 0.1 % (0.0-4.3); Hematocrit 38.4 % (35.5-45.6); Lymphocytes # (Auto) 0.4 K/mm3 (1.2-5.4); Lymphocytes % (Auto) 7.8 % (13.4-35.0); Mean Corpuscular HGB Conc 34 % (32-34); Mean Corpuscular Hemoglobin 29 pg (28-32); Mean Corpuscular Volume 84 fl (84-94); Monocytes # (Auto) 0.4 K/mm3 (0.0-0.8); Monocytes % (Auto) 8.5 % (0.0-7.3); Platelet Count 121 K/mm3 (140-440); Red Blood Count 4.56 M/mm3 (3.65-5.03)
[2018-08-15 08:27] LABS: BUN/Creatinine Ratio 29; Blood Urea Nitrogen 23 mg/dL (9-20); Calcium 9.2 mg/dL (8.4-10.2); Hemolysis Index 16
[2018-08-15] MEDS ORDERED: FOLIC ACID PO SCH (10:00)
[2018-08-15] MEDS ORDERED: LEXAPRO PO SCH (10:00)
[2018-08-15] MEDS ORDERED: [UNRECOGNIZED DRUG - OTHER] PO SCH (10:00)
[2018-08-15] MEDS ORDERED: NORVASC PO SCH (10:00)
[2018-08-15] MEDS ORDERED: FOLBEE PLUS CZ PO SCH (10:00)
[2018-08-15] MEDS ORDERED: ZESTRIL PO SCH (10:00)
[2018-08-15] MEDS ORDERED: NON-FORMULARY (Canagliflozin [Invokana] 300 MG) PO SCH (10:00)
[2018-08-15] MEDS ORDERED: VIT B12 PO SCH (10:00)
[2018-08-15] MEDS ORDERED: B6 PO SCH (10:00)
[2018-08-15] MEDS: ZITHROMAX 500 MG in NACL 0.9% 250ML 250 ML IV SCH (10:17)
[2018-08-15] MEDS: COLACE PO SCH (10:18)
[2018-08-15] MEDS: CLARITIN PO SCH (10:18)
[2018-08-15] MEDS: SODIUM CHLORIDE FLUSH SYRINGE 10 ML IV SCH (11:00)
[2018-08-15] MEDS: ROCEPHIN/NS 1 GM/50 ML 1 GM/50 ML BAG IV SCH (12:36)
[2018-08-15 14:34] VITALS: BP 124/67
--- NOTE | 2018-08-15 15:19 | Discharge Summary ---
Providers - Providers Date of Admission: 08/14/18 04:25 Date of discharge: 08/15/18 Attending physician: ORA CANTRELL Primary care physician: KNOCKOUT MAN Hospitalization Condition: Stable Disposition: DC-01 TO HOME OR SELFCARE Time spent for discharge: 33 min Core Measure Documentation - Palliative Care Palliative Care/ Comfort Measures: Not Applicable - Core Measures Any of the following diagnoses?: none Exam - Constitutional Vitals: Temp Pulse Resp BP Pulse Ox 97.6 F 88 16 124/67 94 08/15/18 13:45 08/15/18 13:45 08/15/18 13:45 08/15/18 13:45 08/15/18 13:45 General appearance: Present: no acute distress, well-nourished - EENT Eyes: Present: PERRL, EOM intact - Neck Neck: Present: supple, normal ROM - Respiratory Respiratory effort: normal Respiratory: bilateral: diminished, negative: rales, rhonchi, wheezing - Cardiovascular Rhythm: regular Heart Sounds: Present: S1 & S2 - Extremities Extremities: no ischemia, No edema Peripheral Pulses: within normal limits - Abdominal General gastrointestinal: Present: soft, non-tender, non-distended, normal bowel sounds - Integumentary Integumentary: Present: clear, warm - Musculoskeletal Musculoskeletal: strength equal bilaterally, generalized weakness - Psychiatric Psychiatric: appropriate mood/affect, cooperative - Neurologic Neurologic: CNII-XII intact, moves all extremities Plan Activity: advance as tolerated, fall precautions Diet: diabetic Additional Instructions: f/u private Immigration Consultant in 1 week. If you have severe shortness of breath or chest pain ,contact MD or go to ER Follow up with: PRIMARY CARE,MD [Primary Care Provider] - 3-5 Days Prescriptions: Azithromycin [Zithromax Z-DEVORA] 0 mg PO DAILY #1 tab Insulin Glargine [Lantus VIAL] 28 unit SUB-Q QHS #100 units Loratadine [Claritin] 10 mg PO QDAY #10 tablet Prednisone [predniSONE 10 mg (6-Day Pack, 21 Tabs)] 10 mg PO .TAPER #1 tab.ds.pk
[2018-08-15] MEDS ORDERED: LANTUS SUB-Q SCH (22:00)
[2018-08-16] MEDS ORDERED: NON-FORMULARY (Sitagliptin Phosphate [Januvia] 100 MG) PO SCH (10:00)
[2018-08-16] MEDS ORDERED: TRADJENTA PO SCH (10:00)
== END 2018-08-15 16:32 | disposition home or self-care (01) | DRG 871 ==
LOC: ED 21:17 → 2B-ACE 08-14 04:25
PROVIDERS: ADMIT Internal Medicine; ATTEND Internal Medicine
DX: A41.9 Sepsis, unspecified organism (principal); J96.21 Acute and chronic respiratory failure with hypoxia; J44.1 Chronic obstructive pulmonary disease with (acute) exacerbation; E87.1 Hypo-osmolality and hyponatremia; I10 Essential (primary) hypertension; I44.7 Left bundle-branch block, unspecified; I25.10 Atherosclerotic heart disease of native coronary artery without angina pectoris; M13.861 Other specified arthritis, right knee; M13.88 Other specified arthritis, other site; F32.9 Major depressive disorder, single episode, unspecified; E11.65 Type 2 diabetes mellitus with hyperglycemia; Z86.74 Personal history of sudden cardiac arrest; Z87.891 Personal history of nicotine dependence; Z87.01 Personal history of pneumonia (recurrent); Z79.899 Other long term (current) drug therapy; Z88.6 Allergy status to analgesic agent; Z88.8 Allergy status to other drugs, medicaments and biological substances; Z87.442 Personal history of urinary calculi; Z99.81 Dependence on supplemental oxygen; Z98.49 Cataract extraction status, unspecified eye; Z79.4 Long term (current) use of insulin; Z79.51 Long term (current) use of inhaled steroids; Z79.2 Long term (current) use of antibiotics
CPT/HCPCS: 36415; 71045; 71046; 80048; 80053; 81001; 82140; 82962; 84484; 85025; 87040; 87086; 93005; 93010; 94640; 94760; 96365; 96367; A9270-GY; J0456; J0692; J0696; J1815; J1940; J1956; J2920; J2930; J3475; J7030; J7040; J7050

== ENCOUNTER 2018-12-08 13:42 | Inpatient (IN) | payer MEDICARE ==
[2018-12-08] MEDS ORDERED: ATROVENT IH ONE (13:58)
[2018-12-08] MEDS ORDERED: PROVENTIL IH ONE ×2 (13:58→19:17)
--- NOTE | 2018-12-08 14:03 | Emergency Department Report ---
HPI - General Time Seen by Provider: 12/08/18 13:53 - HPI HPI: Room 1 The patient is a 73-year-old male presenting with a chief complaint shortness of breath. Patient states yesterday he developed a cough productive of yellow sputum. The patient states this morning when he awakened he noticed that he was wheezing slightly. Patient states as the day progressed he had increased work of breathing and supplemental O2 only helped a small amount. Patient denies any history of fever Location: Lungs Duration: [See above] Quality: Wheezing Severity: Moderate Modifying factors: [see above] Context: [see above] Mode of transportation: [not driving] ED Past Medical Hx - Past Medical History Hx Hypertension: Yes Hx Diabetes: Yes Hx Arthritis: Yes (right knee hands) Hx Kidney Stones: Yes Hx COPD: Yes Additional medical history: left bundle branch block, respiratory failure, intubated x 5. last pneumovax 12/01/2016. last flu shot 12/01/2016. sleep apnea/needs CPAP - Surgical History Additional Surgical History: hernia repair. kidney stones removed. cataracts - Family History Family history: no significant - Social History Smoking Status: Former Smoker (none 5 years) Substance Use Type: Alcohol (occasional) - Medications Home Medications: Home Medications Medication Instructions Recorded Confirmed Last Taken Type Canagliflozin [Invokana] 300 mg PO DAILY #30 tablet 04/30/16 08/14/18 08/13/18 Rx Metformin HCl [Glucophage] 1,000 mg PO BID #60 tablet 04/30/16 08/14/18 08/13/18 Rx amLODIPine [Norvasc] 5 mg PO DAILY #30 tablet 04/30/16 08/14/18 08/13/18 Rx Escitalopram [Lexapro] 10 mg PO DAILY 03/22/17 08/14/18 08/13/18 History Sitagliptin Phosphate [Januvia] 100 mg PO DAILY 03/22/17 08/14/18 08/13/18 History AtorvaSTATin [Lipitor] 40 mg PO HS 01/07/18 08/14/18 08/13/18 History Fluticasone [Flonase] 50 mcg INHALATION DAILY PRN 01/07/18 08/14/18 08/13/18 History Ipratropium/Albuterol Sulfate 1 puff PO QID 01/07/18 08/14/18 08/13/18 History [Combivent Respimat] Lisinopril [Zestril] 20 mg PO DAILY 01/07/18 08/14/18 08/13/18 History Lispro Insulin [Humalog] 10 ml SQ AC 01/07/18 08/14/18 08/13/18 History Vit B12/Folic Acid/B6/Aa No.15 1 each PO DAILY 01/07/18 08/14/18 08/13/18 History [Glycotrol Capsule] Azithromycin [Zithromax Z-DEVORA] 0 mg PO DAILY #1 tab 08/15/18 Unknown Rx Insulin Glargine [Lantus VIAL] 28 unit SUB-Q QHS #100 units 08/15/18 Unknown Rx Loratadine [Claritin] 10 mg PO QDAY #10 tablet 08/15/18 Unknown Rx Prednisone [predniSONE 10 mg 10 mg PO .TAPER #1 tab.ds.pk 08/15/18 Unknown Rx (6-Day Pack, 21 Tabs)] ED Review of Systems ROS: Stated complaint: SOB Other details as noted in HPI Constitutional: denies: fever Eyes: denies: eye pain ENT: denies: throat pain Respiratory: cough, shortness of breath Cardiovascular: denies: chest pain Endocrine: no symptoms reported Gastrointestinal: denies: abdominal pain Genitourinary: denies: dysuria Musculoskeletal: denies: back pain Neurological: denies: headache Physical Exam - Physical Exam Vital Signs: Vital Signs 12/08/18 13:54 Temperature 98.2 F Pulse Rate 123 H Respiratory 18 Rate Blood Pressure 120/65 O2 Sat by Pulse 91 Oximetry Physical Exam: GENERAL: The patient is well-developed well-nourished male sitting on stretcher exhibiting slightly increased work of breathing. [] HEENT: Normocephalic. Atraumatic. Extraocular motions are intact. Patient has moist mucous membranes. NECK: Supple. Trachea midline CHEST/LUNGS: Diminished breath sounds, wheezing. There is slight increased work of breathing. HEART/CARDIOVASCULAR: Regular. There is tachycardia. There is no gallop rub or murmur. ABDOMEN: Abdomen is soft, nontender. Patient has normal bowel sounds. There is no abdominal distention. SKIN: There is no rash. There is no diaphoresis. NEURO: The patient is awake, alert, and oriented. The patient is cooperative. The patient has normal speech MUSCULOSKELETAL: There is no evidence of acute injury. ED Course Vital Signs 12/08/18 13:54 Temperature 98.2 F Pulse Rate 123 H Respiratory 18 Rate Blood Pressure 120/65 O2 Sat by Pulse 91 Oximetry ED Medical Decision Making - Lab Data Result diagrams: 12/08/18 14:29 12/08/18 14:29 Laboratory Tests 12/08/18 12/08/18 12/08/18 14:29 14:29 15:51 WBC 5.9 RBC 4.39 Hgb 12.6 Hct 38.3 MCV 87 MCH 29 MCHC 33 RDW 15.7 H Plt Count 132 L Lymph % (Auto) 13.8 [place] % (Auto) 6.8 Eos % (Auto) 6.8 H Baso % (Auto) 0.9 Lymph # 0.8 L [place] # 0.4 Eos # 0.4 Baso # 0.1 Seg Neutrophils % 71.7 H Seg Neutrophils # 4.2 POC ABG pH 7.406 POC ABG pCO2 42.5 POC ABG pO2 68 L POC ABG HCO3 26.7 POC ABG Total CO2 28 POC ABG O2 Sat 93 POC ABG Base Excess 2 FiO2 40 Sodium 139 Potassium 3.8 Chloride 98.3 Carbon Dioxide 25 Anion Gap 20 BUN 19 Creatinine 0.8 Estimated GFR > 60 BUN/Creatinine Ratio 24 Glucose 181 H Calcium 8.9 NT-Pro-B Natriuret Pep 42.84 - Radiology Data Radiology results: report reviewed (chest x-ray), image reviewed (chest x-ray) interpreted by me: Chest x-ray-right lower lobe atelectasis. no pneumothorax [facility] [address] [place] [address] XRay Report Signed Patient: LIZA VALIENTE MR#: [id number] : 1945 Acct:[id number] Age/Sex: 73 / M ADM Date: 12/08/18 Loc: ED Attending Dr: Ordering Physician: SEBAS GUERRA MD Date of Service: 12/08/18 Procedure(s): XR c hest 1V ap Accession Number(s): [id number] cc: SEBAS GUERRA MD Fluoro Time In Minutes: AP CHEST: HISTORY: Shortness of breath AP view of the chest demonstrates a normal mediastinal and cardiac contour with clear lungs and normal bony and soft tissue structures. IMPRESSION: Unremarkable AP chest. Transcribed By: TTR Dictated By: ALICE PENNY JR, MD Electronically Authenticated By: ALICE PENNY JR, MD Signed Date/Time: 12/08/181448 DD/ 48 TD/TT: 12/08/181448 - Differential Diagnosis COPD exacerbation, pneumonia Critical care attestation.: If time is entered above; I have spent that time in minutes in the direct care of this critically ill patient, excluding procedure time. ED Disposition Clinical Impression: COPD with acute exacerbation, Shortness of breath Disposition: OP ADMIT IP TO THIS HOSP Is pt being admited?: Yes Does the pt Need Aspirin: No Condition: Fair Instructions: Chronic Obstructive Pulmonary Disease (ED) Referrals: PRIMARY CARE, [Primary Care Provider] - 3-5 Days Time of Disposition: 16:06 (hospitalist notified (Dr Davidson))
[2018-12-08] MEDS ORDERED: MAGNESIUM SULFATE 2GM/50ML 2 GM/50 ML BAG IV ONE (14:30)
--- NOTE | 2018-12-08 14:52 | XRay Report ---
AP CHEST: HISTORY: Shortness of breath AP view of the chest demonstrates a normal mediastinal and cardiac contour with clear lungs and normal bony and soft tissue structures. IMPRESSION: Unremarkable AP chest.
[2018-12-08 14:58] LABS: Basophils # (Auto) 0.1 K/mm3 (0.0-0.1); Basophils % (Auto) 0.9 % (0.0-1.8); Eosinophils # (Auto) 0.4 K/mm3 (0.0-0.4); Eosinophils % (Auto) 6.8 % (0.0-4.3); Hematocrit 38.3 % (35.5-45.6); Hemoglobin 12.6 gm/dl (11.8-15.2); Lymphocytes # (Auto) 0.8 K/mm3 (1.2-5.4); Lymphocytes % (Auto) 13.8 % (13.4-35.0); Mean Corpuscular HGB Conc 33 % (32-34); Mean Corpuscular Volume 87 fl (84-94); Monocytes # (Auto) 0.4 K/mm3 (0.0-0.8); Monocytes % (Auto) 6.8 % (0.0-7.3); Platelet Count 132 K/mm3 (140-440); Red Blood Count 4.39 M/mm3 (3.65-5.03); Red Cell Distribution Width 15.7 % (13.2-15.2)
[2018-12-08 15:15] LABS: BUN/Creatinine Ratio 24; Blood Urea Nitrogen 19 mg/dL (9-20); Calcium 8.9 mg/dL (8.4-10.2); Hemolysis Index 6
--- NOTE | 2018-12-08 16:42 | History and Physical Report ---
History of Present Illness Chief complaint: I cant breathe History of present illness: 73 YO Male with COPD, Chronic Respiratory Failure on 3L Home oxygen, DM, HTN, JUAN, OA, Cardiomyopathy presents to ED for evalauation. Pt states that he has been experiencing shortness of breath for the past 3 days with worsening sym ptoms over the past 1 day. Pt acknowledges productive cough with increased production of yellow sputum as well as wheezing which is not improving with nebulizer therapy. Pt denies fever, chills, CP, Palpitations, NVD, Syncope, prolonged immobility/travel, individual/family history of DVT/PE/Blood Clotting Disorders. EMS notified, and upon arrival the patient found to be in distress. Pt transported to [facility] for further care and evaluation. Pt seen and evaluated in ED and found to have COPD Exacerbation, complicated by Acute Hypoxemic Respiratory Failure Past History Past Medical History: arthritis, COPD, diabetes, hypertension Past Surgical History: hernia repair Social history: , lives with family Family history: diabetes, hypertension Medications and Allergies Allergies Allergy/AdvReac Type Severity Reaction Status Date / Time benazepril HCl AdvReac Rash Verified 01/08/18 09:40 [From Lotensin] theophylline AdvReac Unknown Verified 09/21/14 16:29 Home Medications Medication Instructions Recorded Confirmed Last Taken Type Canagliflozin [Invokana] 300 mg PO DAILY #30 tablet 04/30/16 08/14/18 08/13/18 Rx Metformin HCl [Glucophage] 1,000 mg PO BID #60 tablet 04/30/16 08/14/18 08/13/18 Rx amLODIPine [Norvasc] 5 mg PO DAILY #30 tablet 04/30/16 08/14/18 08/13/18 Rx Escitalopram [Lexapro] 10 mg PO DAILY 03/22/17 08/14/18 08/13/18 History Sitagliptin Phosphate [Januvia] 100 mg PO DAILY 03/22/17 08/14/18 08/13/18 History AtorvaSTATin [Lipitor] 40 mg PO HS 01/07/18 08/14/18 08/13/18 History Fluticasone [Flonase] 50 mcg INHALATION DAILY PRN 01/07/18 08/14/18 08/13/18 History Ipratropium/Albuterol Sulfate 1 puff PO QID 01/07/18 08/14/18 08/13/18 History [Combivent Respimat] Lisinopril [Zestril] 20 mg PO DAILY 01/07/18 08/14/18 08/13/18 History Lispro Insulin [Humalog] 10 ml SQ AC 01/07/18 08/14/18 08/13/18 History Vit B12/Folic Acid/B6/Aa No.15 1 each PO DAILY 01/07/18 08/14/18 08/13/18 History [Glycotrol Capsule] Azithromycin [Zithromax Z-DEVORA] 0 mg PO DAILY #1 tab 08/15/18 Unknown Rx Insulin Glargine [Lantus VIAL] 28 unit SUB-Q QHS #100 units 08/15/18 Unknown Rx Loratadine [Claritin] 10 mg PO QDAY #10 tablet 08/15/18 Unknown Rx Prednisone [predniSONE 10 mg 10 mg PO .TAPER #1 tab.ds.pk 08/15/18 Unknown Rx (6-Day Pack, 21 Tabs)] Review of Systems Constitutional: no weight loss, no weight gain, no fever, no chills Ears, nose, mouth and throat: no ear pain, no ear discharge, no tinnitis, no decreased hearing, no nose pain Cardiovascular: no chest pain, no orthopnea, no palpitations Respiratory: cough, cough with sputum, excessive sputum, shortness of breath, wheezing, no hemoptysis Gastrointestinal: no abdominal pain, no nausea, no vomiting, no diarrhea Genitourinary Male: no hematuria, no flank pain, no discharge, no urinary freque ncy, no urinary hesitancy Rectal: no pain, no incontinence, no bleeding Musculoskeletal: no neck stiffness, no neck pain, no shooting arm pain, no arm numbness/tingling, no low back pain Integumentary: no rash, no pruritis, no redness, no sores, no wounds Neurological: no transient paralysis, no paralysis, no weakness, no parathesias, no numbness, no tingling Psychiatric: no anxiety, no memory loss, no change in sleep habits, no sleep disturbances, no insomnia, no hypersomnia Endocrine: no cold intolerance, no heat intolerance, no polyphagia, no excessive thirst, no polydipsia Hematologic/Lymphatic: no easy bruising, no easy bleeding, no lymphadenopathy, no lymphedema Allergic/Immunologic: no urticaria, no allergic rhinitis, no wheezing, no persistent infections, no anaphylaxis Exam - Constitutional Vitals: Temp Pulse Resp BP Pulse Ox 98.2 F 121 H 27 H 109/68 94 12/08/18 13:54 12/08/18 15:47 12/08/18 15:47 12/08/18 15:47 12/08/18 15:47 General appearance: Present: mild distress - EENT Eyes: Present: PERRL ENT: hearing intact, clear oral mucosa - Neck Neck: Present: supple, normal ROM - Respiratory Respiratory effort: labored Respiratory: bilateral: diminished - Cardiovascular Heart Sounds: Present: S1 & S2. Absent: rub, click - Extremities Extremities: pulses symmetrical, No edema Peripheral Pulses: within normal limits - Abdominal General gastrointestinal: Present: soft, non-tender, non-distended, normal bowel sounds Male genitourinary: Present: normal - Integumentary Integumentary: Present: clear, dry - Musculoskeletal Musculoskeletal: generalized weakness - Psychiatric Psychiatric: appropriate mood/affect, intact judgment & insight - Neurologic Neurologic: CNII-XII intact, moves all extremities Results - Labs CBC & Chem 7: 12/08/18 14:29 12/08/18 14:29 Labs: Abnormal lab results 12/08/18 12/08/18 12/08/18 Range/Units 14:29 14:29 15:51 RDW 15.7 H (13.2-15.2) % Plt Count 132 L (140-440) K/mm3 Eos % (Auto) 6.8 H (0.0-4.3) % Lymph # 0.8 L (1.2-5.4) K/mm3 Seg Neutrophils % 71.7 H (40.0-70.0) % POC ABG pO2 68 L (80-105) Glucose 181 H (75-100) mg/dL Assessment and Plan - Patient Problems (1) COPD with acute exacerbation Current Visit: Yes Status: Acute Plan to address problem: Supplemental oxygen, nebulizer therapy, ABG, NIPPV as clinically indicated (2) Acute on chronic respiratory failure Current Visit: No Status: Acute Qualifiers: Respiratory failure complication: hypoxia and hypercapnia Qualified Code(s): J96.21 - Acute and chronic respiratory failure with hypoxia Plan to address problem: Admit to [facility]ENNIE unit, remote telemetry, supplemental oxygen, nebulizer therapy, NIPPV as clinically indicated, ABG (3) Diabetes Current Visit: Yes Status: Acute Plan to address problem: ADA diet, insulin, accu check (4) HTN (hypertension) Current Visit: No Status: Chronic Qualifiers: Hypertension type: essential hypertension Qualified Code(s): I10 - Essential (primary) hypertension Plan to address problem: Monitor BP q shift, supportive care. (5) DVT prophylaxis Current Visit: Yes Status: Acute Plan to address problem: SCD to BLE while in bed.
[2018-12-08] MEDS ORDERED: SODIUM CHLORIDE FLUSH SYRINGE 10 ML IV PRN (16:43)
[2018-12-08] MEDS ORDERED: ZOFRAN IV PRN (16:43)
[2018-12-08] MEDS ORDERED: TYLENOL PO PRN (16:43)
[2018-12-08] MEDS ORDERED: FLONASE NS PRN (16:45)
[2018-12-08] MEDS: PROVENTIL IH PRN ×2 (19:27→23:17)
[2018-12-09] MEDS: LANTUS SUB-Q SCH ×2 (00:09→23:01)
[2018-12-09] MEDS: PEPCID PO SCH ×3 (00:09→22:59)
[2018-12-09] MEDS: SOLU-Medrol IV SCH ×3 (00:11→22:59)
[2018-12-09] MEDS: SODIUM CHLORIDE FLUSH SYRINGE 10 ML IV SCH ×3 (00:11→23:00)
[2018-12-09] MEDS: DUONEB *Not for PRN Use IH SCH ×4 (02:25→20:34)
[2018-12-09 06:22] LABS: Basophils % (Auto) 0.1 % (0.0-1.8); Eosinophils % (Auto) 0.1 % (0.0-4.3); Hematocrit 37.1 % (35.5-45.6); Hemoglobin 12.3 gm/dl (11.8-15.2); Lymphocytes # (Auto) 0.4 K/mm3 (1.2-5.4); Lymphocytes % (Auto) 6.6 % (13.4-35.0); Mean Corpuscular HGB Conc 33 % (32-34); Mean Corpuscular Volume 86 fl (84-94); Monocytes # (Auto) 0.2 K/mm3 (0.0-0.8); Monocytes % (Auto) 3.2 % (0.0-7.3); Platelet Count 136 K/mm3 (140-440); Red Cell Distribution Width 15.5 % (13.2-15.2)
[2018-12-09 06:43] LABS: BUN/Creatinine Ratio 34; Blood Urea Nitrogen 27 mg/dL (9-20); Calcium 8.9 mg/dL (8.4-10.2); Hemolysis Index 12
[2018-12-09] MEDS ORDERED: HumaLOG SUB-Q SCH (07:30)
[2018-12-09] MEDS: Renal Caps PO SCH (09:46)
[2018-12-09] MEDS: LEXAPRO PO SCH (09:46)
[2018-12-09] MEDS: NORVASC PO SCH (09:47)
[2018-12-09] MEDS: ZESTRIL PO SCH (09:47)
[2018-12-09] MEDS: HumaLOG SUB-Q SCH ×4 (09:48→23:01)
[2018-12-09] MEDS: ZITHROMAX 500 MG in NACL 0.9% 250ML 250 ML IV SCH (09:58)
[2018-12-09] MEDS ORDERED: VIT B12 PO SCH (10:00)
[2018-12-09] MEDS ORDERED: FOLIC ACID PO SCH (10:00)
[2018-12-09] MEDS ORDERED: B6 PO SCH (10:00)
[2018-12-09] MEDS ORDERED: [UNRECOGNIZED DRUG - OTHER] PO SCH (10:00)
--- NOTE | 2018-12-09 15:54 | Progress Note ---
Assessment and Plan Assessment and Plan (1) COPD with acute exacerbation Current Visit: Yes Status: Acute Plan to address problem: Supplemental oxygen, nebulizer therapy, ABG, NIPPV as clinically indicated (2) Acute on chronic respiratory failure Current Visit: No Status: Acute Qualifiers: Respiratory failure complication: hypoxia and hypercapnia Qualified Code( s): J96.21 - Acute and chronic respiratory failure with hypoxia Plan to address problem: Admit to JENNIE unit, remote telemetry, supplemental oxygen, nebulizer therapy, NIPPV as clinically indicated, ABG (3) Diabetes Current Visit: Yes Status: Acute Plan to address problem: ADA diet, insulin, accu check (4) HTN (hypertension) Current Visit: No Status: Chronic Qualifiers: Hypertension type: essential hypertension Qualified Code(s): I10 - Essential (primary) hypertension Plan to address problem: Monitor BP q shift, supportive care. (5) DVT prophylaxis Current Visit: Yes Status: Acute Plan to address problem: SCD to BLE while in bed. Subjective Date of service: 12/09/18 Principal diagnosis: Resp failure and copd exacerbation Interval history: Sx better Objective - Constitutional Vitals: Vital Signs - 12hr 12/09/18 12/09/18 12/09/18 05:42 08:01 08:04 Temperature 97.9 F Pulse Rate 98 H Pulse Rate [ 92 H Anterior Bilateral] Respiratory 20 Rate Respiratory 20 Rate [Anterior Bilateral] Blood Pressure 130/75 O2 Sat by Pulse 92 95 Oximetry 12/09/18 12/09/18 12/09/18 08:05 08:08 12:23 Temperature 97.7 F Pulse Rate 96 H 102 H Pulse Rate [ 92 H Anterior Bilateral] Respiratory 20 22 Rate Respiratory 16 Rate [Anterior Bilateral] Blood Pressure 110/60 O2 Sat by Pulse 95 89 Oximetry 12/09/18 12/09/18 14:05 14:11 Temperature Pulse Rate Pulse Rate [ 82 82 Anterior Bilateral] Respiratory Rate Respiratory 20 16 Rate [Anterior Bilateral] Blood Pressure O2 Sat by Pulse Oximetry General appearance: Present: mild distress, well-nourished - EENT Eyes: PERRL, EOM intact ENT: hearing intact, clear oral mucosa Ears: bilateral: normal - Neck Neck: supple, normal ROM - Respiratory Respiratory effort: normal Respiratory: bilateral: diminished, rhonchi, wheezing - Breasts Breasts: normal - Cardiovascular Heart rate: 78 Rhythm: regular Heart Sounds: Present: S1 & S2. Absent: gallop, rub Extremities: no ischemia, pulses intact, No edema, normal color, Full ROM - Gastrointestinal General gastrointestinal: Present: soft, non-tender, non-distended, normal bowel sounds Rectal Exam: deferred - Genitourinary Male genitourinary: normal - Integumentary Integumentary: clear, warm, dry - Musculoskeletal Musculoskeletal: 1, strength equal bilaterally - Neurologic Neurologic: moves all extremities - Psychiatric Psychiatric: memory intact, appropriate mood/affect, intact judgment & insight - Labs CBC & Chem 7: 12/09/18 04:26 12/09/18 04:26 Labs: Abnormal lab results 12/08/18 12/08/18 12/09/18 Range/Units 15:51 22:43 04:26 RDW 15.5 H (13.2-15.2) % Plt Count 136 L (140-440) K/mm3 Lymph % (Auto) 6.6 L (13.4-35.0) % Lymph # 0.4 L (1.2-5.4) K/mm3 Seg Neutrophils % 90.0 H (40.0-70.0) % POC ABG pO2 68 L (80-105) BUN (9-20) mg/dL Glucose (75-100) mg/dL POC Glucose 286 H (70-105) 12/09/18 12/09/18 12/09/18 Range/Units 04:26 08:15 11:22 RDW (13.2-15.2) % Plt Count (140-440) K/mm3 Lymph % (Auto) (13.4-35.0) % Lymph # (1.2-5.4) K/mm3 Seg Neutrophils % (40.0-70.0) % POC ABG pO2 (80-105) BUN 27 H (9-20) mg/dL Glucose 217 H (75-100) mg/dL POC Glucose 184 H 259 H (70-105)
[2018-12-10] MEDS: DUONEB *Not for PRN Use IH SCH ×4 (02:23→20:50)
[2018-12-10] MEDS: HumaLOG SUB-Q SCH ×4 (09:04→21:30)
[2018-12-10] MEDS: NORVASC PO SCH (09:31)
[2018-12-10] MEDS: PEPCID PO SCH ×2 (09:31→21:18)
[2018-12-10] MEDS: LEXAPRO PO SCH (09:32)
[2018-12-10] MEDS: ZESTRIL PO SCH (09:32)
[2018-12-10] MEDS: Renal Caps PO SCH (09:33)
[2018-12-10] MEDS: SOLU-Medrol IV SCH ×2 (09:34→21:18)
[2018-12-10] MEDS: SODIUM CHLORIDE FLUSH SYRINGE 10 ML IV SCH ×2 (09:34→21:18)
[2018-12-10] MEDS: ZITHROMAX 500 MG in NACL 0.9% 250ML 250 ML IV SCH (10:55)
--- NOTE | 2018-12-10 15:48 | Progress Note ---
Assessment and Plan Assessment and Plan (1) COPD with acute exacerbation Current Visit: Yes Status: Acute Plan to address problem: Still wheezing and tight (2) Acute on chronic respiratory failure Current Visit: No Status: Acute Qualifiers: Respiratory failure complication: hypoxia and hypercapnia Qualified Code(s): J96.21 - Acute and chronic respiratory failure with hypoxia Plan to address problem: Cont neb treatments IV Solumedrol and IV abx (3) Diabetes Current Visit: Yes Status: Acute Plan to address problem: ADA diet, insulin, accu check (4) HTN (hypertension) Current Visit: No Status: Chronic Qualifiers: Hypertension type: essential hypertension Qualified Code(s): I10 - Essential (primary) hypertension Plan to address problem: Cont antihypertensives (5) DVT prophylaxis Current Visit: Yes Status: Acute Plan to address problem: SCD to BLE while in bed. Probable discharge tomorrow Subjective Date of service: 12/10/18 Principal diagnosis: Resp failure and copd exacerbation Interval history: Sx better Objective - Constitutional Vitals: Vital Signs - 12hr 12/10/18 12/10/18 12/10/18 05:30 06:03 07:46 Temperature 98.1 F 98.1 F Pulse Rate 70 70 Pulse Rate [ 67 Anterior Bilateral] Respiratory 24 24 Rate Respiratory 18 Rate [Anterior Bilateral] Blood Pressure 133/68 Blood Pressure 133/68 [Left] O2 Sat by Pulse 87 87 95 Oximetry 12/10/18 12/10/18 12/10/18 08:01 09:31 09:32 Temperature Pulse Rate 86 86 Pulse Rate [ 91 H Anterior Bilateral] Respiratory Rate Respiratory 20 Rate [Anterior Bilateral] Blood Pressure 125/73 125/73 Blood Pressure [Left] O2 Sat by Pulse Oximetry 12/10/18 12/10/18 12/10/18 12:25 14:19 14:34 Temperature 97.8 F Pulse Rate 95 H Pulse Rate [ 93 H 100 H Anterior Bilateral] Respiratory 20 Rate Respiratory 20 20 Rate [Anterior Bilateral] Blood Pressure 121/69 Blood Pressure [Left] O2 Sat by Pulse 93 Oximetry General appearance: Present: no acute distress, well-nourished - EENT Eyes: PERRL, EOM intact ENT: hearing intact, clear oral mucosa Ears: bilateral: normal - Neck Neck: supple, normal ROM - Respiratory Respiratory effort: normal Respiratory: bilateral: diminished, rhonchi, wheezing - Breasts Breasts: normal - Cardiovascular Heart rate: 78 Rhythm: regular Heart Sounds: Present: S1 & S2. Absent: gallop, rub Extremities: no ischemia, pulses intact, No edema, normal color, Full ROM - Gastrointestinal General gastrointestinal: Present: soft, non-tender, non-distended, normal bowel sounds - Genitourinary Male genitourinary: normal - Integumentary Integumentary: clear, warm, dry - Musculoskeletal Musculoskeletal: 1, strength equal bilaterally - Neurologic Neurologic: moves all extremities - Psychiatric Psychiatric: memory intact, appropriate mood/affect, intact judgment & insight - Labs CBC & Chem 7: 12/09/18 04:26 12/09/18 04:26 Labs: Abnormal lab results 12/09/18 12/09/18 12/10/18 Range/Units 16:13 21:16 07:46 POC Glucose 216 H 175 H 175 H (70-105) 12/10/18 Range/Units 11:26 POC Glucose 228 H (70-105)
[2018-12-10] MEDS: LANTUS SUB-Q SCH (21:18)
[2018-12-11] MEDS: DUONEB *Not for PRN Use IH SCH ×3 (02:25→14:46)
[2018-12-11] MEDS: HumaLOG SUB-Q SCH ×2 (08:48→13:18)
[2018-12-11] MEDS: SOLU-Medrol IV SCH (10:37)
[2018-12-11] MEDS: Renal Caps PO SCH (10:37)
[2018-12-11] MEDS: LEXAPRO PO SCH (10:38)
[2018-12-11] MEDS: NORVASC PO SCH (10:39)
[2018-12-11] MEDS: SODIUM CHLORIDE FLUSH SYRINGE 10 ML IV SCH (10:40)
[2018-12-11] MEDS: PEPCID PO SCH (10:40)
[2018-12-11] MEDS: ZESTRIL PO SCH (10:41)
[2018-12-11] MEDS: ZITHROMAX 500 MG in NACL 0.9% 250ML 250 ML IV SCH (10:44)
--- NOTE | 2018-12-11 14:35 | Discharge Summary ---
Providers - Providers Date of Admission: 12/08/18 16:43 Date of discharge: 12/11/18 Attending physician: TRISTAN PATTON Primary care physician: DANIEL CHRISTOPHER Hospitalization Condition: Fair Hospital course: (1) COPD with acute exacerbation Current Visit: Yes Status: Acute Plan to address problem: Improved (2) Acute on chronic respiratory failure Current Visit: No Status: Acute Qualifiers: Respiratory failure complication: hypoxia and hypercapnia Qualified Code(s): J96.21 - Acute and chronic respiratory failure with hypoxia Plan to address problem: Cont neb treatments at home and Po abx and oral prednisone (3) Diabetes Current Visit: Yes Status: Acute Plan to address problem: Cont home meds (4) HTN (hypertension) Current Visit: No Status: Chronic Qualifiers: Hypertension type: essential hypertension Qualified Code(s): I10 - Essential (primary) hypertension Plan to address problem: Cont antihypertensives Disposition: - TO HOME OR SELFCARE Core Measure Documentation - Palliative Care Palliative Care/ Comfort Measures: Not Applicable - Core Measures Any of the following diagnoses?: none Exam - Constitutional Vitals: Temp Pulse Resp BP Pulse Ox 97.9 F 83 20 105/46 87 12/11/18 05:28 12/11/18 10:42 12/11/18 10:42 12/11/18 10:42 12/11/18 10:42 General appearance: Present: no acute distress, well-nourished - EENT Eyes: Present: PERRL ENT: hearing intact, clear oral mucosa - Neck Neck: Present: supple, normal ROM - Respiratory Respiratory effort: normal Respiratory: bilateral: CTA, rhonchi (mild) - Cardiovascular Heart rate: 78 Rhythm: regular Heart Sounds: Present: S1 & S2. Absent: rub, click - Extremities Extremities: no ischemia, pulses intact, pulses symmetrical, No edema Peripheral Pulses: within normal limits - Abdominal General gastrointestinal: Present: soft, non-tender, non-distended, normal bowel sounds Male genitourinary: Present: normal - Rectal Rectal Exam: deferred - Integumentary Integumentary: Present: clear, warm, dry - Musculoskeletal Musculoskeletal: gait normal, strength equal bilaterally - Psychiatric Psychiatric: appropriate mood/affect, intact judgment & insight - Neurologic Neurologic: CNII-XII intact, moves all extremities Plan Activity: no restrictions Diet: low fat, low cholesterol, low salt Follow up with: PRIMARY CAREMD [Referring] - 3-5 Days CAROLINE NIEVES MD [Staff Physician] - 7 Days
[2018-12-11 15:44] VITALS: BP 116/72
== END 2018-12-11 15:30 | disposition home or self-care (01) | DRG 189 ==
LOC: ED 13:42 → 2B-ACE 16:43 → 3A 21:12
PROVIDERS: ADMIT Internal Medicine; ATTEND Internal Medicine
PROC: 5A09357 Assistance with Respiratory Ventilation, Less than 24 Consecutive Hours, Continuous Positive Airway Pressure (ICD-10-PCS; principal; 2018-12-08)
PROC: 4A033R1 Measurement of Arterial Saturation, Peripheral, Percutaneous Approach (ICD-10-PCS; 2018-12-08)
PROC: 5A09357 Assistance with Respiratory Ventilation, Less than 24 Consecutive Hours, Continuous Positive Airway Pressure (ICD-10-PCS; 2018-12-09)
PROC: 5A09357 Assistance with Respiratory Ventilation, Less than 24 Consecutive Hours, Continuous Positive Airway Pressure (ICD-10-PCS; 2018-12-10)
PROC: 5A09357 Assistance with Respiratory Ventilation, Less than 24 Consecutive Hours, Continuous Positive Airway Pressure (ICD-10-PCS; 2018-12-11)
DX: J96.21 Acute and chronic respiratory failure with hypoxia (principal); J44.1 Chronic obstructive pulmonary disease with (acute) exacerbation; I42.9 Cardiomyopathy, unspecified; J96.22 Acute and chronic respiratory failure with hypercapnia; E11.9 Type 2 diabetes mellitus without complications; G47.33 Obstructive sleep apnea (adult) (pediatric); Z87.442 Personal history of urinary calculi; Z87.891 Personal history of nicotine dependence; Z79.899 Other long term (current) drug therapy; Z99.81 Dependence on supplemental oxygen; Z79.4 Long term (current) use of insulin; Z82.49 Family history of ischemic heart disease and other diseases of the circulatory system; Z83.3 Family history of diabetes mellitus; Z88.8 Allergy status to other drugs, medicaments and biological substances
CPT/HCPCS: 36415; 71045; 80048; 82803; 82962; 83880; 85025; 93005; 93010; 94640; 94660; 94760; 96365; G0378; A9270-GY; J0456; J1815; J2405; J2920; J3475; J7050

== ENCOUNTER 2019-01-28 10:29 | Inpatient (IN) | payer MEDICARE ==
[2019-01-28] MEDS ORDERED: NACL 0.9% 1000 ML 1,000 ML IV ONE ×2 (11:01→11:42)
--- NOTE | 2019-01-28 11:16 | Emergency Department Report ---
ED General Adult HPI - General Chief complaint: Dizziness Stated complaint: DIZZY Time Seen by Provider: 01/28/19 11:15 Source: patient, EMS Mode of arrival: Stretcher Limitations: No Limitations - History of Present Illness Initial comments: This is a 73-year-old man who is very sparse with his history. He does admit that he called the ambulance for weakness this morning. He states the weakness began gradually at about 9:00. He thinks he may have taken an extra lisinopril. He was found to have low blood pressure in the field. He was brought to the emergency department further care and evaluation. He does specifically deny complete review of systems. He denies any fever or chills respiratory symptoms cough difficulty in urinating etc. He simply states that he felt weak this morning. He had no focal weakness or numbness as well. -: Gradual, hour(s) Severity scale (0 -10): 0 Improves with: none Worsens with: none Associated Symptoms: denies other symptoms - Related Data Home Medications Medication Instructions Recorded Confirmed Last Taken Vit B12/Folic Acid/B6/Aa No.15 1 each PO DAILY 01/07/18 12/08/18 08/13/18 [Glycotrol Capsule] Previous Rx's Medication Instructions Recorded Last Taken Type AtorvaSTATin [Lipitor] 20 mg PO HS #30 tablet 12/11/18 Unknown Rx Canagliflozin [Invokana] 300 mg PO DAILY #30 tablet 12/11/18 Unknown Rx Escitalopram [Lexapro] 10 mg PO DAILY #30 tablet 12/11/18 Unknown Rx Famotidine [Pepcid] 20 mg PO BID #60 tablet 12/11/18 Unknown Rx Fluticasone [Flonase] 50 mcg INHALATION DAILY PRN #1 12/11/18 Unknown Rx bottle Folic Acid/Vit B Comp W-C [Renal 1 cap PO QDAY #30 capsule 12/11/18 Unknown Rx Caps] Insulin Glargine [Lantus VIAL] 28 unit SUB-Q QHS #5 pen 12/11/18 Unknown Rx Ipratropium/Albuterol Sulfate 1 puff PO QID #1 mist.inhal 12/11/18 Unknown Rx [Combivent Respimat] Ipratropium/Albuterol Sulfate 1 ampul IH Q6HRT #50 ampul.neb 12/11/18 Unknown Rx [DUONEB *Not for PRN Use*] Lisinopril [Zestril TAB] 20 mg PO DAILY #30 tablet 12/11/18 Unknown Rx Lispro Insulin [Humalog] 10 ml SQ AC #5 pen 12/11/18 Unknown Rx Metformin HCl [Glucophage] 1,000 mg PO BID #60 tablet 12/11/18 Unknown Rx Prednisone [predniSONE 10 mg 10 mg PO .TAPER #1 tab.ds.pk 12/11/18 Unknown Rx (6-Day Pack, 21 Tabs)] Sitagliptin Phosphate [Januvia] 100 mg PO DAILY #30 tablet 12/11/18 Unknown Rx amLODIPine [Norvasc] 5 mg PO DAILY #30 tablet 12/11/18 Unknown Rx Allergies Allergy/AdvReac Type Severity Reaction Status Date / Time benazepril HCl AdvReac Rash Verified 01/08/18 09:40 [From Lotensin] theophylline AdvReac Unknown Verified 09/21/14 16:29 ED Review of Systems ROS: Stated complaint: DIZZY Other details as noted in HPI Constitutional: weakness. denies: chills, fever Eyes: denies: eye pain, eye discharge, vision change ENT: denies: ear pain, throat pain Respiratory: denies: cough, shortness of breath, wheezing Cardiovascular: denies: chest pain, palpitations Endocrine: no symptoms reported Gastrointestinal: denies: abdominal pain, nausea, diarrhea Genitourinary: denies: urgency, dysuria Musculoskeletal: denies: back pain, joint swelling, arthralgia Skin: denies: rash, lesions Neurological: denies: headache, weakness, paresthesias Psychiatric: denies: anxiety, depression Hematological/Lymphatic: denies: easy bleeding, easy bruising ED Past Medical Hx - Past Medical History Previous Medical History?: Yes Hx Hypertension: Yes Hx Heart Attack/AMI: No (cardiac arrest, mild CAD 30%) Hx Diabetes: Yes Hx Arthritis: Yes (right knee hands) Hx Kidney Stones: Yes Hx COPD: Yes Additional medical history: left bundle branch block, respiratory failure, intubated x 5. last pneumovax 12/01/2016. last flu shot 12/01/2016. sleep apnea/needs CPAP - Surgical History Past Surgical History?: Yes Additional Surgical History: hernia repair. kidney stones removed. cataracts - Social History Smoking Status: Former Smoker Substance Use Type: Alcohol - Medications Home Medications: Home Medications Medication Instructions Recorded Confirmed Last Taken Type Vit B12/Folic Acid/B6/Aa No.15 1 each PO DAILY 01/07/18 12/08/18 08/13/18 History [Glycotrol Capsule] AtorvaSTATin [Lipitor] 20 mg PO HS #30 tablet 12/11/18 Unknown Rx Canagliflozin [Invokana] 300 mg PO DAILY #30 tablet 12/11/18 Unknown Rx Escitalopram [Lexapro] 10 mg PO DAILY #30 tablet 12/11/18 Unknown Rx Famotidine [Pepcid] 20 mg PO BID #60 tablet 12/11/18 Unknown Rx Fluticasone [Flonase] 50 mcg INHALATION DAILY PRN #1 12/11/18 Unknown Rx bottle Folic Acid/Vit B Comp W-C [Renal 1 cap PO QDAY #30 capsule 12/11/18 Unknown Rx Caps] Insulin Glargine [Lantus VIAL] 28 unit SUB-Q QHS #5 pen 12/11/18 Unknown Rx Ipratropium/Albuterol Sulfate 1 puff PO QID #1 mist.inhal 12/11/18 Unknown Rx [Combivent Respimat] Ipratropium/Albuterol Sulfate 1 ampul IH Q6HRT #50 ampul.neb 12/11/18 Unknown Rx [DUONEB *Not for PRN Use*] Lisinopril [Zestril TAB] 20 mg PO DAILY #30 tablet 12/11/18 Unknown Rx Lispro Insulin [Humalog] 10 ml SQ AC #5 pen 12/11/18 Unknown Rx Metformin HCl [Glucophage] 1,000 mg PO BID #60 tablet 12/11/18 Unknown Rx Prednisone [predniSONE 10 mg 10 mg PO .TAPER #1 tab.ds.pk 12/11/18 Unknown Rx (6-Day Pack, 21 Tabs)] Sitagliptin Phosphate [Januvia] 100 mg PO DAILY #30 tablet 12/11/18 Unknown Rx amLODIPine [Norvasc] 5 mg PO DAILY #30 tablet 12/11/18 Unknown Rx ED Physical Exam - General Limitations: No Limitations General appearance: alert, in no apparent distress - Head Head exam: Present: atraumatic, normocephalic - Eye Eye exam: Present: normal appearance. Absent: scleral icterus - ENT ENT exam: Present: mucous membranes moist - Neck Neck exam: Present: normal inspection. Absent: tenderness, meningismus - Respiratory Respiratory exam: Present: normal lung sounds bilaterally. Absent: respiratory distress - Cardiovascular Cardiovascular Exam: Present: regular rate, normal rhythm. Absent: systolic murmur, diastolic murmur, rubs, gallop - GI/Abdominal GI/Abdominal exam: Present: soft, normal bowel sounds. Absent: distended, tenderness, guarding, rebound, rigid - Rectal Rectal exam: Present: deferred - Extremities Exam Extremities exam: Present: normal inspection - Back Exam Back exam: Present: normal inspection - Neurological Exam Neurological exam: Present: alert, oriented X3, CN II-XII intact. Absent: motor sensory deficit - Psychiatric Psychiatric exam: Present: normal affect, normal mood - Skin Skin exam: Present: warm, dry, intact, normal color. Absent: rash ED Course Vital Signs 01/28/19 01/28/19 01/28/19 10:50 12:00 12:13 Temperature 97.4 F L Pulse Rate 58 L 56 L Respiratory 16 18 16 Rate Blood Pressure 83/46 Blood Pressure 92/53 [Right] O2 Sat by Pulse 95 95 Oximetry 01/28/19 13:19 Temperature Pulse Rate 63 Respiratory 17 Rate Blood Pressure Blood Pressure 111/58 [Right] O2 Sat by Pulse 96 Oximetry - Reevaluation(s) Reevaluation #1: Patient declined rectal temperature. His blood pressure did improve with fluids. I think it would be judicious to watch him until tomorrow for his prolonged hypotension. I discussed this with Dr. Matos who will be admitting the patient. 01/28/19 13:31 ED Medical Decision Making - Lab Data Result diagrams: 01/28/19 11:38 01/28/19 11:38 Laboratory Results - last 24 hr 01/28/19 01/28/19 01/28/19 11:38 11:38 11:38 WBC 3.4 L RBC 3.75 Hgb 10.8 L Hct 32.5 L MCV 87 MCH 29 MCHC 33 RDW 15.8 H Plt Count 100 L Lymph % (Auto) 28.6 Davison % (Auto) 12.6 H Eos % (Auto) 11.6 H Baso % (Auto) 1.2 Lymph # 1.0 L Davison # 0.4 Eos # 0.4 Baso # 0.0 Seg Neutrophils % 46.0 Seg Neutrophils # 1.6 L PT 14.5 INR 1.06 APTT 20.0 L D-Dimer 153.04 Sodium 140 Potassium 4.0 Chloride 106.6 Carbon Dioxide 24 Anion Gap 13 BUN 12 Creatinine 0.7 L Estimated GFR > 60 BUN/Creatinine Ratio 17 Glucose 177 H Lactic Acid Calcium 8.0 L Total Bilirubin Direct Bilirubin Indirect Bilirubin AST ALT Alkaline Phosphatase Total Creatine Kinase CK-MB (CK-2) CK-MB (CK-2) Rel Index Troponin T NT-Pro-B Natriuret Pep Total Protein Albumin Albumin/Globulin Ratio Urine Color Urine Turbidity Urine pH Ur Specific Aurora Urine Protein Urine Glucose (UA) Urine Ketones Urine Blood Urine Nitrite Urine Bilirubin Urine Urobilinogen Ur Leukocyte Esterase Urine WBC (Auto) Urine RBC (Auto) 01/28/19 01/28/19 01/28/19 11:38 11:38 12:28 WBC RBC Hgb Hct MCV MCH MCHC RDW Plt Count Lymph % (Auto) Davison % (Auto) Eos % (Auto) Baso % (Auto) Lymph # Davison # Eos # Baso # Seg Neutrophils % Seg Neutrophils # PT INR APTT D-Dimer Sodium Potassium Chloride Carbon Dioxide Anion Gap BUN Creatinine Estimated GFR BUN/Creatinine Ratio Glucose Lactic Acid 1.60 Calcium Total Bilirubin 0.40 Direct Bilirubin < 0.2 Indirect Bilirubin 0.2 AST 15 ALT 13 Alkaline Phosphatase 63 Total Creatine Kinase 86 CK-MB (CK-2) 3.0 CK-MB (CK-2) Rel Index 3.4 Troponin T < 0.010 NT-Pro-B Natriuret Pep 52.25 Total Protein 4.9 L Albumin 3.3 L Albumin/Globulin Ratio 2.1 Urine Color Yellow Urine Turbidity Clear Urine pH 5.0 Ur Specific Aurora 1.030 Urine Protein <15 mg/dl Urine Glucose (UA) >=500 Urine Ketones Neg Urine Blood Neg Urine Nitrite Neg Urine Bilirubin Neg Urine Urobilinogen < 2.0 Ur Leukocyte Esterase Neg Urine WBC (Auto) < 1.0 Urine RBC (Auto) 1.0 - EKG Data -: EKG Interpreted by Me EKG shows normal: sinus rhythm Rate: bradycardia - EKG Data Interpretation: other (patient has a left bundle branch block as degree AV block. Therefore bifascicular block) Critical care attestation.: If time is entered above; I have spent that time in minutes in the direct care of this critically ill patient, excluding procedure time. ED Disposition Clinical Impression: Diabetes 1.5, managed as type 2, Sinus bradycardia, Bifascicular bundle branch block Hypotension Qualifiers: Hypotension type: other hypotension type Qualified Code(s): I95.89 - Other hypotension Disposition: OP ADMIT IP TO THIS HOSP Is pt being admited?: Yes Does the pt Need Aspirin: Yes Condition: Stable Instructions: Diabetes Mellitus Type 2 in Adults (ED) Referrals: NAYANA ZAVALETA MD [Primary Care Provider] - 3-5 Days Time of Disposition: 13:32
[2019-01-28 12:00] LABS: Basophils % (Auto) 1.2 % (0.0-1.8); Eosinophils # (Auto) 0.4 K/mm3 (0.0-0.4); Eosinophils % (Auto) 11.6 % (0.0-4.3); Hematocrit 32.5 % (35.5-45.6); Hemoglobin 10.8 gm/dl (11.8-15.2); Lymphocytes % (Auto) 28.6 % (13.4-35.0); Mean Corpuscular HGB Conc 33 % (32-34); Mean Corpuscular Volume 87 fl (84-94); Monocytes # (Auto) 0.4 K/mm3 (0.0-0.8); Monocytes % (Auto) 12.6 % (0.0-7.3); Platelet Count 100 K/mm3 (140-440); Red Blood Count 3.75 M/mm3 (3.65-5.03); Red Cell Distribution Width 15.8 % (13.2-15.2)
[2019-01-28 12:10] LABS: INR 1.06 (0.87-1.13)
[2019-01-28 12:16] LABS: BUN/Creatinine Ratio 17; Blood Urea Nitrogen 12 mg/dL (9-20); Hemolysis Index 6
[2019-01-28 12:43] LABS: Alanine Aminotransferase 13 units/L (7-56); Albumin 3.3 g/dL (3.9-5)
[2019-01-28 12:47] LABS: Bilirubin,Direct < 0.2 mg/dL (0-0.2)
--- NOTE | 2019-01-28 13:00 | XRay Report ---
PORTABLE CHEST INDICATION: Hypotension. COMPARISON: 12/08/2018 FINDINGS: Portable, frontal chest radiograph demonstrate stable cardiomediastinal silhouette and slight bibasilar markings/possible scarring. No pleural effusions or CHF. Mild aortic knob calcifications. EKG leads. Slight bony degenerative changes. CONCLUSION: No acute chest process, as described. Thank you for the opportunity to participate in this patient's care.
[2019-01-28 13:14] LABS: Bilirubin,Urine NEG (Negative); Blood,Urine NEG (Negative); Color,Urine Yellow (Yellow); Protein,Urine <15 mg/dL mg/dL (Negative); Urobilinogen,Urine < 2.0 mg/dL (<2.0); WBC,Urine < 1.0 /HPF (0.0-6.0)
[2019-01-28] MEDS ORDERED: BABY ASPIRIN PO ONE (13:33)
[2019-01-28] MEDS ORDERED: PERCOCET 5/325 PO PRN (23:44)
[2019-01-28] MEDS ORDERED: TYLENOL PO PRN (23:44)
[2019-01-28] MEDS ORDERED: ZOFRAN IV PRN (23:44)
[2019-01-28] MEDS ORDERED: DILAUDID IV PRN (23:44)
[2019-01-28] MEDS ORDERED: SODIUM CHLORIDE FLUSH SYRINGE 10 ML IV PRN (23:44)
--- NOTE | 2019-01-28 23:44 | Event Note ---
Date: 01/28/19 See dictated H/p in reports Hypotension T2DM
[2019-01-28] MEDS ORDERED: NACL 0.9% 1000 ML 1,000 ML IV SCH (23:45)
[2019-01-29] MEDS ORDERED: PROVENTIL IH PRN (02:01)
[2019-01-29 05:54] LABS: Eosinophils # (Auto) 0.6 K/mm3 (0.0-0.4); Eosinophils % (Auto) 13.2 % (0.0-4.3); Hematocrit 34.7 % (35.5-45.6); Hemoglobin 11.8 gm/dl (11.8-15.2); Lymphocytes # (Auto) 1.2 K/mm3 (1.2-5.4); Lymphocytes % (Auto) 25.8 % (13.4-35.0); Mean Corpuscular HGB Conc 34 % (32-34); Mean Corpuscular Volume 85 fl (84-94); Monocytes # (Auto) 0.4 K/mm3 (0.0-0.8); Monocytes % (Auto) 9.8 % (0.0-7.3); Platelet Count 123 K/mm3 (140-440); Red Blood Count 4.08 M/mm3 (3.65-5.03); Red Cell Distribution Width 15.5 % (13.2-15.2)
[2019-01-29 06:43] LABS: Alanine Aminotransferase 14 units/L (7-56); Albumin 3.3 g/dL (3.9-5); BUN/Creatinine Ratio 15; Blood Urea Nitrogen 9 mg/dL (9-20); Calcium 8.3 mg/dL (8.4-10.2); Hemolysis Index 6
[2019-01-29] MEDS: DUONEB *Not for PRN Use IH SCH ×2 (07:16→13:16)
[2019-01-29] MEDS: HumaLOG SUB-Q SCH ×4 (07:30→13:21)
[2019-01-29] MEDS ORDERED: HumaLOG SUB-Q SCH (07:30)
--- NOTE | 2019-01-29 07:45 | History and Physical Report ---
CHIEF COMPLAINT: Dizziness and unsteadiness while walking. HISTORY OF PRESENT ILLNESS: A 73-year-old man with a poor history of presentation, comes in for weakness since 9:00 a.m. The patient says he may have taken an extra lisinopril. The patient feels that he may fall and feels he is weak. In the Emergency Room, his blood pressure was consistently low. The patient states he may have taken extra lisinopril. His initial blood pressures in the Emergency Room where 83/46 and 92/53. The patient is with near syncope while standing secondary to his blood pressure. PAST MEDICAL HISTORY: Significant for hypertension, cardiac arrest in the past, diabetes, arthritis, kidney stones and COPD and also left bundle branch block. SOCIAL HISTORY: Former smoker. Alcohol occasionally. PAST SURGICAL HISTORY: Hernia repair, kidney stone removal, and cataract removal. FAMILY HISTORY: Hypertension. CURRENT MEDICATIONS: On the chart. REVIEW OF SYSTEMS: Significant for weakness and difficulty standing straight and walking with a tendency to fall. Otherwise, review of systems is negative. PHYSICAL EXAMINATION: GENERAL: Elderly male, cooperative during examination. VITAL SIGNS: Initial blood pressure was 83/46, which is later on improved to 111/58, temperature is 97.4, pulse is 58, respirations are 16. HEENT: Unremarkable. Pupils equal and reactive. NECK: Supple, no lymphadenopathy, no thyromegaly. LUNGS: Clear to auscultation and percussion. Good air entry. CARDIOVASCULAR: S1, S2 heard. No gallop, no murmur, no rub. Apical impulse in left fifth intercostal space and midclavicular line. ABDOMEN: Soft and benign. No hepatosplenomegaly. No guarding, no rigidity. Hernial orifices are normal. EXTREMITIES: Good pedal pulses. No pedal edema. CENTRAL NERVOUS SYSTEM: Alert and oriented x 4, nonfocal exam. SKIN: Normal. LABORATORY DATA: Significant for white count of 3400, H and H of 10.8 and 32.5, platelet count 500,000. Electrolytes are normal. Glucose 177. A1c is 10.0. Total protein is 4.9, albumin is 3.3. Urine normal. EKG shows sinus bradycardia, heart rate of 58. Left bundle branch block. Chest x-ray, no acute process. ASSESSMENT AND PLAN: 1. Hypotension, probably secondary to taking lisinopril twice. We will keep him in observation for 24 hours. IV fluids for the time being. We will hold the lisinopril for today. We will hold the other antihypertensives for today. 2. Type 2 diabetes. Continue Invokana and coverage. Also, continue the insulin. 3. Hyperlipidemia. Continue atorvastatin 20 mg daily. 4. Depression. Continue Lexapro. 5. Chronic obstructive pulmonary disease. Continue Combivent Respimat and DuoNeb. 6. Hypertension. We will hold antihypertensives for about 12-18 hours and resume depending on the blood pressure. 7. Deep venous thrombosis prophylaxis, Lovenox 40 mg subcutaneous daily. 8. Malnutrition, mild. Needs dietary supplements. 9. Deep venous thrombosis prophylaxis, Lovenox 30 mg subcutaneous daily. JOB# [id number] MITRA/SANGEETA KRISHNA
[2019-01-29] MEDS ORDERED: GLUCOPHAGE PO SCH (08:00)
[2019-01-29] MEDS ORDERED: VIT B12 PO SCH (10:00)
[2019-01-29] MEDS ORDERED: NON-FORMULARY (Metformin Hcl [Glucophage] 1,000 MG) PO SCH (10:00)
[2019-01-29] MEDS ORDERED: LEXAPRO PO SCH (10:00)
[2019-01-29] MEDS ORDERED: [UNRECOGNIZED DRUG - OTHER] PO SCH (10:00)
[2019-01-29] MEDS ORDERED: NON-FORMULARY (Sitagliptin Phosphate [Januvia] 100 MG) PO SCH (10:00)
[2019-01-29] MEDS ORDERED: TRADJENTA PO SCH (10:00)
[2019-01-29] MEDS ORDERED: SODIUM CHLORIDE FLUSH SYRINGE 10 ML IV SCH (10:00)
[2019-01-29] MEDS ORDERED: B6 PO SCH (10:00)
[2019-01-29] MEDS ORDERED: NON-FORMULARY (Canagliflozin [Invokana] 300 MG) PO SCH (10:00)
[2019-01-29] MEDS ORDERED: FOLIC ACID PO SCH (10:00)
[2019-01-29] MEDS ORDERED: NON-FORMULARY (Ipratropium/Albuterol Sulfate [Combivent Respimat] 1 PUFF) PO SCH (10:00)
[2019-01-29 11:53] VITALS: BP 123/57
--- NOTE | 2019-01-29 12:08 | Discharge Summary ---
Providers - Providers Date of Admission: 01/28/19 14:20 Date of discharge: 01/29/19 Attending physician: MIKEY LLANES 01/29/19 06:31 Physical Therapy Evaluation and Treat [CONS] Routine Comment: Reason For Exam: weakness/Debility Primary care physician: NAYANA SEAY MD Hospitalization Condition: Stable Hospital course: Patient is 73-year-old with diabetes, hypertension ,presented because of generalized weakness. Paramedics reported low BP at home. He was evaluated in Emergency Department and blood pressure 83/46. He was on lisinopril and Norvasc at home. This was held, and he was admitted. Blood pressure improved generalized weakness resolved, BP improved to 123/57 so he was discharged home. Disposition: TO HOME OR SELFCARE - Discharge Diagnoses (1) Hypotension Status: Acute (2) General weakness Status: Acute (3) Diabetes mellitus, type 2 Status: Chronic (4) HTN (hypertension) Status: Chronic Qualifiers: Hypertension type: essential hypertension Qualified Code(s): I10 - Essential (primary) hypertension (5) Hyperlipidemia Status: Chronic Core Measure Documentation - Palliative Care Palliative Care/ Comfort Measures: Not Applicable - Core Measures Any of the following diagnoses?: none Exam - Constitutional Vitals: Temp Pulse Resp BP Pulse Ox 98.0 F 84 20 123/57 93 01/29/19 08:15 01/29/19 11:49 01/29/19 10:00 01/29/19 11:49 01/29/19 11:49 Plan Activity: no restrictions Diet: low fat, low cholesterol, low salt, diabetic Additional Instructions: 1.Follow up with PCP in 1 week Follow up with: NAYANA ZAVALETA MD [Primary Care Provider] - 7 Days
[2019-01-29] MEDS ORDERED: FOLBEE PLUS CZ PO SCH (13:00)
== END 2019-01-29 13:50 | disposition home or self-care (01) | DRG 315 ==
LOC: ED 10:29 → 4A 14:20
PROVIDERS: ADMIT Internal Medicine; ATTEND Internal Medicine
PROC: 5A09357 Assistance with Respiratory Ventilation, Less than 24 Consecutive Hours, Continuous Positive Airway Pressure (ICD-10-PCS; principal; 2019-01-28)
DX: I95.89 Other hypotension (principal); I45.2 Bifascicular block; E44.1 Mild protein-calorie malnutrition; R00.1 Bradycardia, unspecified; E11.9 Type 2 diabetes mellitus without complications; I10 Essential (primary) hypertension; M19.90 Unspecified osteoarthritis, unspecified site; J44.9 Chronic obstructive pulmonary disease, unspecified; F32.9 Major depressive disorder, single episode, unspecified; E78.5 Hyperlipidemia, unspecified; I44.7 Left bundle-branch block, unspecified; Z79.899 Other long term (current) drug therapy; Z87.442 Personal history of urinary calculi; Z72.89 Other problems related to lifestyle; Z98.49 Cataract extraction status, unspecified eye; Z79.4 Long term (current) use of insulin; Z82.49 Family history of ischemic heart disease and other diseases of the circulatory system; Z68.29 Body mass index [BMI] 29.0-29.9, adult; T46.4X5A Adverse effect of angiotensin-converting-enzyme inhibitors, initial encounter
CPT/HCPCS: 36415; 71045; 80048; 80053; 80076; 81001; 82140; 82550; 82553; 82962; 83036; 83880; 84484; 85025; 85379; 85610; 85730; 87040; 87086; 93005; 93010; 94640; 94660; G0378; J1815; J7030

== ENCOUNTER 2020-01-23 00:11 | Observation (INO) | payer MEDICARE ==
[2020-01-23] MEDS ORDERED: IPRATROPIUM 0.02% NEBU 2.5 ML IH ONE ×2 (00:15→00:16)
[2020-01-23] MEDS ORDERED: ALBUTEROL 2.5 MG/3 ML NEBU IH ONE ×2 (00:15→00:16)
[2020-01-23] MEDS ORDERED: MAGNESIUM SULFATE 2 GM/50 ML BAG IV ONE (00:15)
[2020-01-23] MEDS ORDERED: methylPREDNISolone Sod Succinate 125 MG/2 ML INJ IV ONE (00:15)
--- NOTE | 2020-01-23 00:17 | Emergency Department Report ---
ED General Adult HPI - General Chief complaint: Dyspnea/Respdistress Stated complaint: JASMIN Time Seen by Provider: 01/23/20 00:13 Source: patient, family, EMS (Verbal report received from emergency medical services. EMS documentation not available at time of chart dictation ), RN notes reviewed, old records reviewed Mode of arrival: Stretcher Limitations: Physical Limitation - History of Present Illness Initial comments: Patient is a 74-year-old gentleman. I have evaluated this patient in the past. Past medical history includes COPD, oxygen dependent, 2 to 4 L, diabetes and hypertension. Primary care doctor: Dr. Reyes Pulmonology: Dr. León Patient brought to the hospital by EMS, without treatment in the field, with the exception of supplemental oxygen, with a complaint of cough, wheezing, shortness of breath, mucus production, and chest tightness with coughing. Symptoms present for the past few days. Patient has been using albuterol at home without significant improvement in symptoms. No headache, neck pain, abdominal pain, irritative or obstructive urinary symptoms, and he denies DVT and pulmonary embolism risk factors. He is given albuterol, Atrovent, steroids and magnesium, and this greatly improved his symptoms. -: Gradual, days(s) Consistency: constant Improves with: medication, rest Worsens with: movement - Related Data Home Medications Medication Instructions Recorded Confirmed Last Taken Vit B12/Folic Acid/B6/Aa No.15 1 each PO DAILY 01/07/18 01/23/20 01/28/19 08:00 [Glycotrol Capsule] Insulin Glargine [Lantus VIAL] 30 unit SUB-Q QHS 01/28/19 01/23/20 01/27/19 20 :00 Lispro Insulin [HumaLOG] 10 unit SQ AC 01/29/19 01/23/20 01/28/19 AtorvaSTATin [Lipitor] 40 mg PO HS 01/23/20 01/23/20 Unknown Canagliflozin (Nf) [Invokana (Nf)] 300 mg PO DAILY 01/23/20 01/23/20 Unknown Ipratropium/Albuterol Sulfate 1 puff INHALATION Q6H 01/23/20 01/23/20 Unknown [Combivent Respimat] Sitagliptin Phosphate [Januvia] 100 mg PO DAILY 01/23/20 01/23/20 Unknown metFORMIN 1,000 mg PO BID 01/23/20 01/23/20 Unknown Previous Rx's Medication Instructions Recorded Last Taken Type Canagliflozin [Invokana] 300 mg PO DAILY #30 tablet 12/11/18 01/28/19 08:00 Rx Escitalopram [Lexapro] 10 mg PO DAILY #30 tablet 12/11/18 01/28/19 08:00 Rx Fluticasone [Flonase] 50 mcg INHALATION DAILY PRN #1 12/11/18 01/28/19 08:00 Rx bottle Ipratropium/Albuterol Sulfate 1 puff PO QID #1 mist.inhal 12/11/18 01/28/19 08:00 Rx [Combivent Respimat] Metformin HCl [Glucophage] 1,000 mg PO BID #60 tablet 12/11/18 01/28/19 08:00 Rx Sitagliptin Phosphate [Januvia] 100 mg PO DAILY #30 tablet 12/11/18 01/28/19 08:00 Rx amLODIPine 5 mg PO DAILY #30 tablet 12/11/18 01/28/19 08:00 Rx lisinopriL [Zestril TAB] 20 mg PO DAILY #30 tablet 12/11/18 01/28/19 08:00 Rx Allergies Allergy/AdvReac Type Severity Reaction Status Date / Time benazepril HCl AdvReac Rash Verified 01/08/18 09:40 [From Lotensin] theophylline AdvReac Unknown Verified 09/21/14 16:29 ED Review of Systems ROS: Stated complaint: JASMIN Other details as noted in HPI Constitutional: malaise, weakness Eyes: denies: eye discharge ENT: congestion Respiratory: cough, shortness of breath, SOB with exertion, SOB at rest, wheezing Cardiovascular: denies: syncope Gastrointestinal: denies: nausea, vomiting Genitourinary: as per HPI Musculoskeletal: as per HPI Skin: as per HPI Neurological: as per HPI, weakness Psychiatric: as per HPI Hematological/Lymphatic: as per HPI ED Past Medical Hx - Past Medical History Hx Hypertension: Yes Hx Heart Attack/AMI: No (cardiac arrest, mild CAD 30%) Hx Diabetes: Yes Hx Arthritis: Yes (right knee hands) Hx Kidney Stones: Yes Hx COPD: Yes Additional medical history: left bundle branch block, respiratory failure, intubated x 5. last pneumovax 12/01/2016. last flu shot 12/01/2016. sleep apnea/needs CPAP - Surgical History Additional Surgical History: hernia repair. kidney stones removed. cataracts - Social History Smoking Status: Former Smoker - Medications Home Medications: Home Medications Medication Instructions Recorded Confirmed Last Taken Type Vit B12/Folic Acid/B6/Aa No.15 1 each PO DAILY 01/07/18 01/23/20 01/28/19 08:00 History [Glycotrol Capsule] Canagliflozin [Invokana] 300 mg PO DAILY #30 tablet 12/11/18 01/23/20 01/28/19 08:00 Rx Escitalopram [Lexapro] 10 mg PO DAILY #30 tablet 12/11/18 01/23/20 01/28/19 08:00 Rx Fluticasone [Flonase] 50 mcg INHALATION DAILY PRN #1 12/11/18 01/23/20 01/28/19 08:00 Rx bottle Ipratropium/Albuterol Sulfate 1 puff PO QID #1 mist.inhal 12/11/18 01/23/20 01/28/19 08:00 Rx [Combivent Respimat] Metformin HCl [Glucophage] 1,000 mg PO BID #60 tablet 12/11/18 01/23/20 01/28/19 08:00 Rx Sitagliptin Phosphate [Januvia] 100 mg PO DAILY #30 tablet 12/11/18 01/23/20 01/28/19 08:00 Rx amLODIPine 5 mg PO DAILY #30 tablet 12/11/18 01/23/20 01/28/19 08:00 Rx lisinopriL [Zestril TAB] 20 mg PO DAILY #30 tablet 12/11/18 01/23/20 01/28/19 08:00 Rx Insulin Glargine [Lantus VIAL] 30 unit SUB-Q QHS 01/28/19 01/23/20 01/27/19 20:00 History Lispro Insulin [HumaLOG] 10 unit SQ AC 01/29/19 01/23/20 01/28/19 History AtorvaSTATin [Lipitor] 40 mg PO HS 01/23/20 01/23/20 Unknown History Canagliflozin (Nf) [Invokana (Nf)] 300 mg PO DAILY 01/23/20 01/23/20 Unknown History Ipratropium/Albuterol Sulfate 1 puff INHALATION Q6H 01/23/20 01/23/20 Unknown History [Combivent Respimat] Sitagliptin Phosphate [Januvia] 100 mg PO DAILY 01/23/20 01/23/20 Unknown History metFORMIN 1,000 mg PO BID 01/23/20 01/23/20 Unknown History ED Physical Exam - General Limitations: Physical Limitation General appearance: alert, anxious, in distress, obese - Head Head exam: Present: atraumatic, normocephalic - Eye Eye exam: Present: normal appearance, EOMI - ENT ENT exam: Present: normal exam, normal orophraynx, mucous membranes moist, normal external ear exam - Neck Neck exam: Present: normal inspection, full ROM. Absent: tenderness, meningismus - Respiratory Respiratory exam: Present: respiratory distress, wheezes, rhonchi, accessory muscle use - Cardiovascular Cardiovascular Exam: Present: normal rhythm, tachycardia, normal heart sounds. Absent: systolic murmur, diastolic murmur, rubs, gallop - GI/Abdominal GI/Abdominal exam: Present: soft, distended, other (Abdominal wall musculature being used to assist with breathing). Absent: tenderness, guarding, rebound, rigid, pulsatile mass - Rectal Rectal exam: Present: deferred - Extremities Exam Extremities exam: Present: normal inspection, full ROM, other (2+ pulses noted in the bilateral upper and lower extremities. There is no palpable cord. negative Homans sign. Muscular compartments are soft. The pelvis is stable.). Absent: pedal edema, calf tenderness - Back Exam Back exam: Present: normal inspection. Absent: tenderness, CVA tenderness (R), CVA tenderness (L), paraspinal tenderness, vertebral tenderness - Neurological Exam Neurological exam: Present: alert, other (There is no facial droop. The tongue is midline. Extraocular movements are intact bilaterally. There is 5 out of 5 strength in bilateral upper and lower extremities. Sensation is intact to light touch bilateral upper and lower extre). Absent: motor sensory deficit - Psychiatric Psychiatric exam: Present: anxious - Skin Skin exam: Present: warm, dry, intact, normal color. Absent: rash ED Course Vital Signs 01/23/20 01/23/20 00:16 00:25 Temperature 98.2 F Pulse Rate 107 H Pulse Rate [ 111 H Anterior Bilateral Throughout] Respiratory 25 H Rate Respiratory 22 Rate [Anterior Bilateral Throughout] Blood Pressure 117/66 [Right] O2 Sat by Pulse 98 Oximetry - Reevaluation(s) Reevaluation #2: 01/23/20 00:52 Differential diagnosis, including but not limited to: COPD exacerbation, pneumonia, bronchitis Assessment and plan: 74-year-old gentleman who endorses no DVT or pulmonary embolism risk factors, with a probable moderate to severe COPD exacerbation. Currently receiving albuterol and Atrovent at this time, feels improved, saturating at 93% on nonrebreather, speaking in full sentences and protecting his airway at this time. Patient will require admission to this hospital for airway observation and continued supportive care. Discussed this with patient family, who verbalized understanding, and whom are amenable to this plan of care. EKG reviewed and appreciated, abnormal, but appears to be unchanged from prior EKG from January 2019, with the exception of a tachycardia. Reevaluation #3: 01/23/20 01:44 Dr Jalen Raman to admit ED Medical Decision Making - Lab Data Result diagrams: 01/23/20 00:28 01/23/20 00:28 Vital Signs 01/23/20 00:25 Temperature 98.2 F Pulse Rate 107 H Respiratory 25 H Rate Blood Pressure 117/66 [Right] O2 Sat by Pulse 98 Oximetry Lab Results 01/23/20 Range/Units 00:28 WBC 5.4 (4.5-11.0) K/mm3 RBC 4.11 (3.65-5.03) M/mm3 Hgb 12.1 (11.8-15.2) gm/dl Hct 35.4 L (35.5-45.6) % MCV 86 (84-94) fl MCH 30 (28-32) pg MCHC 34 (32-34) % RDW 15.9 H (13.2-15.2) % Plt Count 128 L (140-440) K/mm3 - EKG Data -: EKG Interpreted by Pr Rate: tachycardia - EKG Data 01/23/20 00:53 Tachycardia, normal axis, sinus rhythm, QTC prolonged, nonspecific intraventricular conduction delay, there is no endorsement of chest pain, left bundle branch block pattern, unchanged from prior EKG from January 2019, it is not a STEMI - Radiology Data Radiology results: report reviewed, image reviewed Print Report Referring Physician: MIKEY CUENCA Patient Name: LIZA VALIENTE Date of : 1945 Sex: Male Report Date: 2020-01-23 Report Status: Finalized Findings [facility] [address] [place] [address] XRay Report Signed Patient: LIZA VALIENTE MR#: [id number] : 1945 Acct:[id number] Age/Sex: 74 / M ADM Date: 01/23/20 Loc: ED [facility] Dr: Ordering Physician: MIKEY CUENCA MD Date of Service: 01/23/20 Procedure(s): XR chest 1V ap Accession Number(s): [id number] cc: MIKEY CUENCA MD Fluoro Time In Minutes: CHEST 1 VIEW INDICATION: Dyspnea. COMPARISON: 01/28/2019 FINDINGS: Support devices: None. Heart: Normal. Lungs/Pleura: No acute pulmonary or pleural findings. Healed left rib fracture is incidentally noted. IMPRESSION: 1. No acute findings. Signer Name: Daryl Caro MD Signed: 01/23/2020 12:34 AM Workstation Name: [email or web address] Transcribed By: Dictated By: Daryl Caro MD Electronically Authenticated By: Daryl Caro MD Signed Date/Time: 01/23/2033 DD/ Critical Care Time: Yes Critical care time in (mins) excluding proc time.: 35 Critical care attestation.: If time is entered above; I have spent that time in minutes in the direct care of this critically ill patient, excluding procedure time. ED Disposition Clinical Impression: COPD exacerbation, Acute on chronic respiratory failure, General weakness, Hyperglycemia Disposition: 09 OP ADMIT IP TO THIS HOSP Is pt being admited?: Yes Condition: Fair Instructions: Chronic Bronchitis (ED)
--- NOTE | 2020-01-23 00:38 | XRay Report ---
CHEST 1 VIEW INDICATION: Dyspnea. COMPARISON: 01/28/2019 FINDINGS: Support devices: None. Heart: Normal. Lungs/Pleura: No acute pulmonary or pleural findings. Healed left rib fracture is incidentally noted. IMPRESSION: 1. No acute findings. Signer Name: Daryl Caro MD Signed: 01/23/2020 12:34 AM Workstation Name: [id number]
[2020-01-23 00:46] LABS: Hematocrit 35.4 % (35.5-45.6); Hemoglobin 12.1 gm/dl (11.8-15.2); Mean Corpuscular HGB Conc 34 % (32-34); Mean Corpuscular Volume 86 fl (84-94); Platelet Count 128 K/mm3 (140-440); Red Blood Count 4.11 M/mm3 (3.65-5.03); Red Cell Distribution Width 15.9 % (13.2-15.2)
[2020-01-23 00:57] LABS: INR 1.03 (0.87-1.13)
[2020-01-23 01:09] LABS: Albumin 3.9 g/dL (3.9-5)
[2020-01-23] MEDS ORDERED: DOXYCYCLINE HYCLATE 100 MG in SODIUM CHLORIDE 0.9% 250ML 250 ML IV ONE (01:20)
[2020-01-23] MEDS ORDERED: INSULIN REGULAR, HUMAN 100 UNITS/1 ML IV ONE (01:20)
[2020-01-23 02:02] LABS: ABG Base Excess -1.5 mmol/L (-2.0-3.0); ABG HCO3 24.2 mmol/L (20.0-26.0); ABG Methemoglobin 0.6 % (0.0-1.5); ABG Oxygen Saturation 93.8 % (95.0-99.0); ABG PCO2 44.5 mm Hg; ABG PH 7.353 pH Units (7.350-7.450); ABG PO2 70.8 mm Hg (80.0-90.0)
[2020-01-23] MEDS ORDERED: ONDANSETRON 4 MG/2 ML INJ IV PRN (02:19)
[2020-01-23] MEDS ORDERED: DEXTROSE 50% IN WATER (25GM) 50 ML SYRINGE IV PRN (02:19)
[2020-01-23] MEDS ORDERED: MAGNESIUM HYDROXIDE (MOM) ORAL LIQD UDC PO PRN (02:19)
[2020-01-23] MEDS ORDERED: ACETAMINOPHEN 325 MG TAB PO PRN (02:19)
--- NOTE | 2020-01-23 02:29 | History and Physical Report ---
History of Present Illness Date of examination: 01/23/20 Date of admission: 01/23/2020 Chief complaint: Cough Shortness of breath History of present illness: 74-year-old white male with known history of hypertension, diabetes mellitus, COPD on oxygen at home presenting to the emergency room today complaining of shortness of breath. Patient has had some sinus congestion and cough which has not been productive over the past few days. He denies any fever or chills, no nausea vomiting, no chest pain. He has been using his albuterol at home without any significant improvement I decided to check into the emergency room for further evaluation. Upon arrival in the ER he was found to be wheezing. He was given nebulizing treatment, IV magnesium and IV steroid with significant improvement. Past History Past Medical History: arthritis, CAD, COPD, diabetes, hypertension, other (sleep apnea) Past Surgical History: cataract removal, hernia repair, Other (kidney stone removal,) Social history: smoking (former smoker) Family history: no significant family history Medications and Allergies Allergies Allergy/AdvReac Type Severity Reaction Status Date / Time benazepril HCl AdvReac Rash Verified 01/08/18 09:40 [From Lotensin] theophylline AdvReac Unknown Verified 09/21/14 16:29 Home Medications Medication Instructions Recorded Confirmed Last Taken Type Vit B12/Folic Acid/B6/Aa No.15 1 each PO DAILY 01/07/18 01/23/20 01/28/19 08:00 History [Glycotrol Capsule] Canagliflozin [Invokana] 300 mg PO DAILY #30 tablet 12/11/18 01/23/20 01/28/19 08:00 Rx Escitalopram [Lexapro] 10 mg PO DAILY #30 tablet 12/11/18 01/23/20 01/28/19 08:00 Rx Fluticasone [Flonase] 50 mcg INHALATION DAILY PRN #1 12/11/18 01/23/20 01/28/19 08:00 Rx bottle Ipratropium/Albuterol Sulfate 1 puff PO QID #1 mist.inhal 12/11/18 01/23/20 01/28/19 08:00 Rx [Combivent Respimat] Metformin HCl [Glucophage] 1,000 mg PO BID #60 tablet 12/11/18 01/23/20 01/28/19 08:00 Rx Sitagliptin Phosphate [Januvia] 100 mg PO DAILY #30 tablet 12/11/18 01/23/20 01/28/19 08:00 Rx amLODIPine 5 mg PO DAILY #30 tablet 12/11/18 01/23/20 01/28/19 08:00 Rx lisinopriL [Zestril TAB] 20 mg PO DAILY #30 tablet 12/11/18 01/23/20 01/28/19 08:00 Rx Insulin Glargine [Lantus VIAL] 30 unit SUB-Q QHS 01/28/19 01/23/20 01/27/19 20:00 History Lispro Insulin [HumaLOG] 10 unit SQ AC 01/29/19 01/23/20 01/28/19 History AtorvaSTATin [Lipitor] 40 mg PO HS 01/23/20 01/23/20 Unknown History Canagliflozin (Nf) [Invokana (Nf)] 300 mg PO DAILY 01/23/20 01/23/20 Unknown History Ipratropium/Albuterol Sulfate 1 puff INHALATION Q6H 01/23/20 01/23/20 Unknown History [Combivent Respimat] Sitagliptin Phosphate [Januvia] 100 mg PO DAILY 01/23/20 01/23/20 Unknown History metFORMIN 1,000 mg PO BID 01/23/20 01/23/20 Unknown History Active Meds: Active Medications Acetaminophen (Tylenol) 650 mg PO Q4H PRN PRN Reason: Pain MILD(1-3)/Fever >100.5/[place] Albuterol/Ipratropium (Duoneb *Not For Prn Use*) 1 ampul IH Q4HRT [facility] Dextrose (D50w (25gm) Syringe) 50 ml IV Q30MIN PRN; Protocol PRN Reason: Hypoglycemia Dextrose (D50w (25gm) Syringe) 50 ml IV Q30MIN PRN; Protocol PRN Reason: Hypoglycemia Levofloxacin/Dextrose (Levaquin 750mg/150ml) 750 mg in 150 mls @ 100 mls/hr IV Q24HR JJ; Protocol Insulin Human Lispro (Humalog) 0 unit SUB-Q ACHS JJ; Protocol Magnesium Hydroxide (Milk Of Magnesia) 30 ml PO Q4H PRN PRN Reason: Constipation Methylprednisolone Sodium Succinate (Solu-Medrol) 40 mg IV Q8HR JJ Ondansetron HCl (Zofran) 4 mg IV Q8H PRN PRN Reason: Nausea And Vomiting Sodium Chloride (Sodium Chloride Flush Syringe 10 Ml) 10 ml IV BID JJ Sodium Chloride (Sodium Chloride Flush Syringe 10 Ml) 10 ml IV PRN PRN PRN Reason: LINE FLUSH Review of Systems Constitutional: no fever, no chills Cardiovascular: no chest pain, no orthopnea, no syncope Respiratory: cough, shortness of breath, sleep apnea Gastrointestinal: no nausea, no vomiting, no diarrhea Genitourinary Male: no dysuria, no hematuria Musculoskeletal: no neck pain, no low back pain Integumentary: no rash, no pruritis Neurological: no headaches, no change in mentation Exam - Constitutional Vitals: Temp Pulse Resp BP Pulse Ox 98.2 F 107 H 25 H 117/66 98 01/23/20 00:25 01/23/20 00:25 01/23/20 00:25 01/23/20 00:25 01/23/20 00:25 General appearance: Present: no acute distress - EENT Eyes: Present: EOM intact ENT: hearing intact, clear oral mucosa, dentition normal - Neck Neck: Present: supple, normal ROM - Respiratory Respiratory effort: normal Respiratory: bilateral: CTA - Cardiovascular Rhythm: regular Heart Sounds: Present: S1 & S2 - Extremities Extremities: no ischemia, pulses intact, pulses symmetrical, No edema, Full ROM Peripheral Pulses: within normal limits - Abdominal General gastrointestinal: Present: soft, non-tender, non-distended - Integumentary Integumentary: Present: clear, warm, dry - Musculoskeletal Musculoskeletal: strength equal bilaterally - Psychiatric Psychiatric: appropriate mood/affect, intact judgment & insight, cooperative - Neurologic Neurologic: CNII-XII intact, moves all extremities Results - Labs CBC & Chem 7: 01/23/20 00:28 01/23/20 00:28 Labs: Abnormal lab results 01/23/20 01/23/20 01/23/20 Range/Units 00: 00:28 01:52 Hct 35.4 L (35.5-45.6) % RDW 15.9 H (13.2-15.2) % Plt Count 128 L (140-440) K/mm3 ABG pO2 70.8 L (80.0-90.0) mm Hg ABG O2 Saturation 93.8 L (95.0-99.0) % ABG Hemoglobin 11.9 L (14.0-18.0) gm/dl Oxyhemoglobin 92.0 L (95.0-99.0) % Sodium 136 L (137-145) mmol/L Chloride 96.9 L (98-107) mmol/L Glucose 465 H (75-100) mg/dL Total Protein 6.0 L (6.3-8.2) g/dL Assessment and Plan - Patient Problems (1) COPD exacerbation Current Visit: Yes Status: Acute Plan to address problem: Patient admitted and placed on nebulizing treatments. We also placed on empiric IV antibiotics and IV steroid. We will keep O2 saturation greater or equal to 92%. (2) Diabetes mellitus, type 2 Current Visit: No Status: Chronic Plan to address problem: Patient has known history of diabetes mellitus. Will resume routine home medications and monitor Accu-Cheks. (3) HTN (hypertension) Current Visit: No Status: Chronic Qualifiers: Hypertension type: essential hypertension Qualified Code(s): I10 - Essential (primary) hypertension (4) DVT prophylaxis Current Visit: No Status: Acute Plan to address problem: Patient placed on subcutaneous heparin. (5) Full code status Current Visit: Yes Status: Acute
[2020-01-23] MEDS: IPRATROPIUM/ALBUTEROL SULFATE 3 ML AMPUL.NEB IH SCH ×5 (04:48→19:39)
[2020-01-23] MEDS ORDERED: methylPREDNISolone Sod Succinate 40 MG/1 ML INJ IV SCH (06:00)
[2020-01-23] MEDS: INSULIN LISPRO 100 UNIT/ML SUB-Q SCH ×6 (09:03→22:26)
[2020-01-23] MEDS ORDERED: IPRATROPIUM INHALATION SCH (10:15)
[2020-01-23] MEDS ORDERED: ALBUTEROL SULFATE INHALATION SCH (10:15)
[2020-01-23] MEDS ORDERED: FLUTICASONE PROPIONATE NASAL SPRAY 16 GM NS PRN (11:00)
--- NOTE | 2020-01-23 12:51 | Event Note ---
Date: 01/23/20 Patient seen and examined 74-year-old white male with known history of hypertension, diabetes mellitus, COPD on oxygen at home presenting to the emergency room complaining of shortness of breath. will cont current mx and plan, having low BP - will hold BP meds, iv fluid, repeat BMP tomorrow.
[2020-01-23] MEDS ORDERED: INSULIN GLARGINE 100 UNITS/ML SUB-Q SCH (22:00)
[2020-01-23] MEDS: methylPREDNISolone Sod Succinate 40 MG/1 ML INJ IV SCH (22:26)
[2020-01-24] MEDS: IPRATROPIUM/ALBUTEROL SULFATE 3 ML AMPUL.NEB IH SCH ×5 (00:55→17:02)
[2020-01-24 06:24] LABS: Basophils % (Auto) 0.2 % (0.0-1.8); Eosinophils % (Auto) 0.1 % (0.0-4.3); Hematocrit 36.8 % (35.5-45.6); Hemoglobin 12.3 gm/dl (11.8-15.2); Lymphocytes # (Auto) 0.5 K/mm3 (1.2-5.4); Lymphocytes % (Auto) 6.8 % (13.4-35.0); Mean Corpuscular HGB Conc 34 % (32-34); Mean Corpuscular Volume 86 fl (84-94); Monocytes # (Auto) 0.5 K/mm3 (0.0-0.8); Platelet Count 142 K/mm3 (140-440); Red Cell Distribution Width 16.2 % (13.2-15.2)
[2020-01-24 06:34] LABS: INR 1.07 (0.87-1.13)
[2020-01-24 06:36] LABS: Partial Thromboplastin Time 26.4 Sec. (24.2-36.6)
[2020-01-24 06:40] LABS: BUN/Creatinine Ratio 30; Blood Urea Nitrogen 27 mg/dL (9-20); Calcium 9.4 mg/dL (8.4-10.2); Hemolysis Index 3
[2020-01-24] MEDS ORDERED: LINAGLIPTIN 5 MG TAB PO SCH (08:00)
[2020-01-24] MEDS: INSULIN LISPRO 100 UNIT/ML SUB-Q SCH ×4 (08:39→13:34)
[2020-01-24] MEDS ORDERED: LISINOPRIL 20 MG TAB PO SCH (10:00)
[2020-01-24] MEDS ORDERED: ESCITALOPRAM 10 MG TAB PO SCH (10:00)
[2020-01-24] MEDS ORDERED: NON-FORMULARY EACH (Sitagliptin Phosphate [Januvia] 100 MG) PO SCH (10:00)
[2020-01-24] MEDS ORDERED: [UNRECOGNIZED DRUG - OTHER] PO SCH (10:00)
[2020-01-24] MEDS ORDERED: B6 PO SCH (10:00)
[2020-01-24] MEDS ORDERED: amLODIPine 5 MG TAB PO SCH (10:00)
[2020-01-24] MEDS ORDERED: FOLIC ACID PO SCH (10:00)
[2020-01-24] MEDS ORDERED: VIT B12 PO SCH (10:00)
--- NOTE | 2020-01-24 11:08 | Discharge Summary ---
Providers - Providers Date of Admission: 01/23/20 02:28 Date of discharge: 01/24/20 Attending physician: CELESTINA REDDING 01/23/20 02:20 Consult to Dietitian/Nutrition [CONS] Routine Physician Instructions: Reason For Exam: Reason for Consult: Diet education 01/23/20 17:04 Physical Therapy Evaluation and Treat [CONS] Routine Comment: Reason For Exam: weakness Primary care physician: DANIEL CHRISTOPHER Hospitalization Condition: Fair Pertinent studies: CXR: no acute findings Hospital course: Discharge diagnosis: (1) COPD exacerbation with acute on chronic hypoxic respiratory failure (2) Diabetes mellitus, type 2 (3) HTN (hypertension) (4) sleep apnea, on CPAP Disposition: TO HOME OR SELFCARE Time spent for discharge: 34 minutes Core Measure Documentation - Palliative Care Palliative Care/ Comfort Measures: Not Applicable - Core Measures Any of the following diagnoses?: none Exam - Constitutional Vitals: Temp Pulse Resp BP Pulse Ox 98.0 F 89 20 137/76 94 01/24/20 07:13 01/24/20 07:59 01/24/20 07:59 01/24/20 07:13 01/24/20 08:00 General appearance: Present: no acute distress, well-nourished - EENT Eyes: Present: PERRL ENT: hearing intact, clear oral mucosa - Neck Neck: Present: supple, normal ROM - Respiratory Respiratory effort: normal Respiratory: bilateral: CTA - Cardiovascular Heart Sounds: Present: S1 & S2. Absent: rub, click - Extremities Extremities: pulses symmetrical, No edema Peripheral Pulses: within normal limits - Abdominal General gastrointestinal: Present: soft, non-tender, non-distended, normal bowel sounds - Integumentary Integumentary: Present: clear, warm, dry - Musculoskeletal Musculoskeletal: gait normal, strength equal bilaterally - Psychiatric Psychiatric: appropriate mood/affect, intact judgment & insight - Neurologic Neurologic: CNII-XII intact, moves all extremities Plan Activity: advance as tolerated Weight Bearing Status: Weight Bear as Tolerated Diet: low fat, low salt, diabetic Follow up with: DANIEL CHRISTOPHER MD [Primary Care Provider] - 7 Days Prescriptions: levoFLOXacin [Levaquin] 750 mg PO QDAY #5 tablet Prednisone [predniSONE 10 mg (6-Day Pack, 21 Tabs)] 10 mg PO .TAPER #1 tab.ds.pk Miladonide/Formoterol Fumarate [Symbicort 80-4.5 Mcg Inhaler] 10.2 gm IH BID #1 hfa.aer.ad
[2020-01-24] MEDS: methylPREDNISolone Sod Succinate 40 MG/1 ML INJ IV SCH (11:29)
[2020-01-24 14:28] VITALS: BP 129/68
== END 2020-01-24 16:00 | disposition home health service (06) ==
LOC: ED 00:11 → 2B-ACE 02:28 → INTOOBSV 02:28
PROVIDERS: ADMIT Internal Medicine Geriatric Medicine; ATTEND Internal Medicine
DX: J96.10 Chronic respiratory failure, unspecified whether with hypoxia or hypercapnia (principal); J44.1 Chronic obstructive pulmonary disease with (acute) exacerbation; I10 Essential (primary) hypertension; E11.65 Type 2 diabetes mellitus with hyperglycemia; R53.1 Weakness; M19.90 Unspecified osteoarthritis, unspecified site; I25.10 Atherosclerotic heart disease of native coronary artery without angina pectoris; J44.9 Chronic obstructive pulmonary disease, unspecified; G47.30 Sleep apnea, unspecified; Z98.49 Cataract extraction status, unspecified eye; Z79.4 Long term (current) use of insulin; Z87.442 Personal history of urinary calculi; Z87.891 Personal history of nicotine dependence
CPT/HCPCS: 36415; 71045; 80048; 80053; 82550; 82803; 82962; 83036; 83735; 85025; 85027; 85610; 85730; 93005; 93010; 94640; 94644; 94660; 94760; 96365; 96366; 96367; 96375; 96376; 97161; 99291; A9270; G0378; J1956; J2920; J2930; J3475; J7050; J1815

== ENCOUNTER 2020-04-11 00:39 | Emergency (ER) | payer MEDICARE ==
--- NOTE | 2020-04-11 01:07 | Emergency Department Report ---
HPI - General Chief Complaint: Abdominal Pain Time Seen by Provider: 04/11/20 00:51 - HPI HPI: 74-year-old male presents to the emergency department with complaint of abdominal distention and cramping pain since earlier in the day. Patient says that he usually has at least 1-2 bowel movements per day but was unable to have one today. He has not taken anything for symptoms prior to presentation. He denies any fever, nausea, vomiting. He has a past medical history of COPD on home O2, osteoarthritis, diabetes, hypertension, coronary artery disease. He follows with [facility] practice, Dr. Reyes. No recent travel or sick contacts at home. ED Past Medical Hx - Past Medical History Previous Medical History?: Yes Hx Hypertension: Yes Hx Heart Attack/AMI: No (cardiac arrest, mild CAD 30%) Hx Diabetes: Yes (12 years) Hx Arthritis: Yes (right knee hands) Hx Kidney Stones: Yes Hx COPD: Yes Additional medical history: left bundle branch block, respiratory failure, intubated x 5. last pneumovax 12/01/2016. last flu shot 12/01/2016. sleep apnea/needs CPAP - Surgical History Past Surgical History?: Yes Additional Surgical History: hernia repair. kidney stones removed. cataracts - Social History Smoking Status: Former Smoker Substance Use Type: None - Medications Home Medications: Home Medications Medication Instructions Recorded Confirmed Last Taken Type Vit B12/Folic Acid/B6/Aa No.15 1 each PO DAILY 01/07/18 01/23/20 01/28/19 08:00 History [Glycotrol Capsule] Canagliflozin [Invokana] 300 mg PO DAILY #30 tablet 12/11/18 01/23/20 01/28/19 08:00 Rx Escitalopram [Lexapro] 10 mg PO DAILY #30 tablet 12/11/18 01/23/20 01/28/19 08:00 Rx Fluticasone [Flonase] 50 mcg INHALATION DAILY PRN #1 12/11/18 01/23/20 01/28/19 08:00 Rx bottle Ipratropium/Albuterol Sulfate 1 puff PO QID #1 mist.inhal 12/11/18 01/23/20 01/28/19 08:00 Rx [Combivent Respimat] Metformin HCl [Glucophage] 1,000 mg PO BID #60 tablet 12/11/18 01/23/20 01/28/19 08:00 Rx Sitagliptin Phosphate [Januvia] 100 mg PO DAILY #30 tablet 12/11/18 01/23/20 01/28/19 08:00 Rx amLODIPine 5 mg PO DAILY #30 tablet 12/11/18 01/23/20 01/28/19 08:00 Rx lisinopriL [Zestril TAB] 20 mg PO DAILY #30 tablet 12/11/18 01/23/20 01/28/19 08:00 Rx Insulin Glargine [Lantus VIAL] 30 unit SUB-Q QHS 01/28/19 01/23/20 01/27/19 20:00 History Lispro Insulin [HumaLOG] 10 unit SQ AC 01/29/19 01/23/20 01/28/19 History AtorvaSTATin [Lipitor] 40 mg PO HS 01/23/20 01/23/20 Unknown History Canagliflozin (Nf) [Invokana (Nf)] 300 mg PO DAILY 01/23/20 01/23/20 Unknown History Ipratropium/Albuterol Sulfate 1 puff INHALATION Q6H 01/23/20 01/23/20 Unknown History [Combivent Respimat] Sitagliptin Phosphate [Januvia] 100 mg PO DAILY 01/23/20 01/23/20 Unknown History metFORMIN 1,000 mg PO BID 01/23/20 01/23/20 Unknown History Budesonide/Formoterol Fumarate 10.2 gm IH BID #1 hfa.aer.ad 01/24/20 Unknown Rx [Symbicort 80-4.5 Mcg Inhaler] Prednisone [predniSONE 10 mg 10 mg PO .TAPER #1 tab.ds.pk 01/24/20 Unknown Rx (6-Day Pack, 21 Tabs)] levoFLOXacin [Levaquin] 750 mg PO QDAY #5 tablet 01/24/20 Unknown Rx prednisoLONE [Millipred 5mg (6 day 5 mg PO QDAY 6 Days #21 tab.ds.pk 01/24/20 Unknown Rx 21 tab dosepak)] Dicyclomine [Bentyl] 10 mg PO QID PRN #20 capsule 04/11/20 Unknown Rx ED Review of Systems ROS: Stated complaint: ABD PAIN Other details as noted in HPI Comment: All other systems reviewed and negative Constitutional: denies: chills, fever Eyes: denies: eye pain, vision change ENT: denies: ear pain, throat pain Respiratory: denies: cough, wheezing Cardiovascular: denies: chest pain, palpitations Gastrointestinal: abdominal pain. denies: nausea, vomiting Genitourinary: denies: dysuria, discharge Musculoskeletal: denies: back pain, arthralgia Skin: denies: rash, lesions Neurological: denies: headache, weakness Physical Exam - Physical Exam Vital Signs: Vital Signs 04/11/20 04/11/20 00:41 00:48 Temperature 98.1 F Pulse Rate 100 H Respiratory 18 Rate Blood Pressure 122/71 O2 Sat by Pulse 97 97 Oximetry Physical Exam: GENERAL: The patient is well-developed well-nourished. HENT: Normocephalic. Atraumatic. Patient has moist mucous membranes. EYES: Extraocular motions are intact. NECK: Supple. Trachea is midline. CHEST/LUNGS: Clear to auscultation. There is no respiratory distress noted. HEART/CARDIOVASCULAR: Regular. There is no tachycardia. ABDOMEN: Abdomen is soft. Mild abdominal tenderness to palpation. Patient has normal bowel sounds. There is mild abdominal distention. SKIN: Skin is warm and dry. NEURO: The patient is awake, alert, and oriented. The patient is cooperative. The patient has no focal neurologic deficits. Normal speech. MUSCULOSKELETAL: There is no tenderness or deformity. There is no evidence of acute injury. ED Course Vital Signs 04/11/20 04/11/20 00:41 00:48 Temperature 98.1 F Pulse Rate 100 H Respiratory 18 Rate Blood Pressure 122/71 O2 Sat by Pulse 97 97 Oximetry ED Medical Decision Making - Lab Data Result diagrams: 04/11/20 01:18 04/11/20 01:18 - Radiology Data Radiology results: report reviewed ABDOMEN 4 VIEW(S) INDICATION / CLINICAL INFORMATION: abd pain. COMPARISON: Chest x-ray from 01/23/2020 FINDINGS: TUBES / LINES: None. BOWEL GAS PATTERN: Dilated gas-filled bowel loops in the abdomen which appear to be colonic. FREE AIR / EXTRALUMINAL GAS: None seen. ADDITIONAL FINDINGS: Minimal left basilar atelectasis with otherwise clear lungs and normal heart size. IMPRESSION: 1. Nonspecific dilated gas-filled bowel loops within the abdomen as above which appear to be primarily colonic. Since there is no abrupt transition point, an ileus could have this appearance. CT ABDOMEN AND PELVIS WITH CONTRAST HISTORY: MAIN: abdominal distention and cramping pain since earlier in the day, no bowel movement today [id number] 100ml. COMPARISON: CT chest from 10/12/2015. TECHNIQUE: CT images of the abdomen and pelvis were obtained following administration of intravenous contrast. All CT scans at this location are performed using CT dose reduction for ALARA by means of automated exposure control. CONTRAST: 100 ml of intravenous contrast administered. FINDINGS: Lungs/bones: Lung bases show mild bibasilar atelectasis. Otherwise clear. Degenerative changes in the spine and pelvis with no acute osseous abnormality. Abdomen/pelvis: The liver is mildly enlarged with no focal mass. There is cholelithiasis with no gallbladder wall thickening. The spleen, pancreas, adrenals, kidneys, and proximal GI tract. Urinary bladder and prostate are normal no pelvic free fluid. No acute colonic abnormality identified. IMPRESSION: 1. No acute abnormality. Incidental findings as above. - Medical Decision Making This patient presents to the emergency department with a complaint of some abdominal cramping and concerns were abdominal distention. On examination there may be some mild distention but otherwise the abdomen is soft, and nontoxic in appearance. Patient's labs have been mostly unremarkable except for some hyperglycemia with a blood sugar of 340. There is no significant elevation in his anion gap and therefore he is low suspicion for diabetic ketoacidosis. The blood sugar will be diluted with some of the IV fluid resuscitation given and the patient is due for his diabetes medications. His abdominal x-ray was read by radiology as showing some colonic gas dilation. A CT scan of the abdomen and pelvis with IV contrast was done that shows cholelithiasis without cholecysti tis as an incidental finding but otherwise no colonic or intestinal obstruction or acute process noted. His vital signs been stable throughout his ED course. Patient will be discharged home to follow-up with primary care and has been given a referral for gastroenterology. He says he is feeling greatly improved and passed a lot of gas during his ED course. He will return to the emergency department with any worsening of his symptoms or any acute distress. Critical Care Time: No Critical care attestation.: If time is entered above; I have spent that time in minutes in the direct care of this critically ill patient, excluding procedure time. ED Disposition Clinical Impression: Abdominal cramping, Hyperglycemia Abdominal pain Qualifiers: Abdominal location: unspecified location Qualified Code(s): R10.9 - Unspecified abdominal pain Disposition: TO HOME OR SELFCARE Is pt being admited?: No Condition: Stable Instructions: Gas and Bloating (ED), Abdominal Pain (ED), Diabetic Hyperglycemia (ED) Additional Instructions: Please follow-up with your primary care physician in the next few days. I am giving you a referral for a local cane weigher helper, Dr. Herr, to follow-up regarding your abdominal pain and cramping. Return to the emergency department with any worsening of your symptoms or any acute distress. Please take your diabetes medications as prescribed. Try and stay away from foods that are high in sugar, carbohydrates and starches. Keep a blood sugar log. Prescriptions: Dicyclomine [Bentyl] 10 mg PO QID PRN #20 capsule PRN Reason: Pain , Severe (7-10) Referrals: DANIEL REYES MD [Primary Care Provider] - 2-3 Days MARGOTH HERR MD [Staff Physician] - 3-5 Days Time of Disposition: 05:07
[2020-04-11 01:51] LABS: Basophils % (Auto) 0.8 % (0.0-1.8); Eosinophils # (Auto) 0.4 K/mm3 (0.0-0.4); Hematocrit 34.8 % (35.5-45.6); Hemoglobin 11.6 gm/dl (11.8-15.2); Lymphocytes # (Auto) 1.7 K/mm3 (1.2-5.4); Lymphocytes % (Auto) 27.7 % (13.4-35.0); Mean Corpuscular HGB Conc 33 % (32-34); Mean Corpuscular Volume 87 fl (84-94); Monocytes # (Auto) 0.6 K/mm3 (0.0-0.8); Monocytes % (Auto) 9.9 % (0.0-7.3); Platelet Count 146 K/mm3 (140-440); Red Cell Distribution Width 15.8 % (13.2-15.2)
--- NOTE | 2020-04-11 01:51 | XRay Report ---
ABDOMEN 4 VIEW(S) INDICATION / CLINICAL INFORMATION: abd pain. COMPARISON: Chest x-ray from 01/23/2020 FINDINGS: TUBES / LINES: None. BOWEL GAS PATTERN: Dilated gas-filled bowel loops in the abdomen which appear to be colonic. FREE AIR / EXTRALUMINAL GAS: None seen. ADDITIONAL FINDINGS: Minimal left basilar atelectasis with otherwise clear lungs and normal heart siz e. IMPRESSION: 1. Nonspecific dilated gas-filled bowel loops within the abdomen as above which appear to be primaril y colonic. Since there is no abrupt transition point, an ileus could have this appearance. Signer Name: Alexi Pearson MD Signed: 04/11/2020 1:46 AM Workstation Name: [email or web address]
[2020-04-11 02:07] LABS: Calcium 9.1 mg/dL (8.4-10.2)
[2020-04-11] MEDS ORDERED: SODIUM CHLORIDE 0.9% 1000 ML 1,000 ML IV ONE (02:12)
[2020-04-11 04:08] LABS: Bilirubin,Urine NEG (Negative); Blood,Urine NEG (Negative); Color,Urine Yellow (Yellow); Mucus,Urine FEW /HPF; Protein,Urine <15 mg/dL mg/dL (Negative); Urobilinogen,Urine < 2.0 mg/dL (<2.0)
--- NOTE | 2020-04-11 04:59 | Cat Scan Report ---
CT ABDOMEN AND PELVIS WITH CONTRAST HISTORY: MAIN: abdominal distention and cramping pain since earlier in the day, no bowel movement tod ay [id number] 100ml. COMPARISON: CT chest from 10/12/2015. TECHNIQUE: CT images of the abdomen and pelvis were obtained following administration of intravenous contrast. All CT scans at this location are performed using CT dose reduction for ALARA by means of automated exposure control. CONTRAST: 100 ml of intravenous contrast administered. FINDINGS: Lungs/bones: Lung bases show mild bibasilar atelectasis. Otherwise clear. Degenerative changes in th e spine and pelvis with no acute osseous abnormality. Abdomen/pelvis: The liver is mildly enlarged with no focal mass. There is cholelithiasis with no gal lbladder wall thickening. The spleen, pancreas, adrenals, kidneys, and proximal GI tract. Urinary bladder and prostate are normal no pelvic free fluid. No acute colonic abnormality identified . IMPRESSION: 1. No acute abnormality. Incidental findings as above. Signer Name: Alexi Pearson MD Signed: 04/11/2020 4:55 AM Workstation Name: [id number]
[2020-04-11 05:31] VITALS: BP 132/86
== END 2020-04-11 05:33 | disposition home or self-care (01) ==
LOC: ED 00:39
DX: E11.65 Type 2 diabetes mellitus with hyperglycemia (principal); I10 Essential (primary) hypertension; J44.9 Chronic obstructive pulmonary disease, unspecified; M13.88 Other specified arthritis, other site; Z98.890 Other specified postprocedural states; Z79.899 Other long term (current) drug therapy; Z87.891 Personal history of nicotine dependence; Z88.1 Allergy status to other antibiotic agents; Z88.6 Allergy status to analgesic agent; Z79.4 Long term (current) use of insulin
CPT/HCPCS: 36415; 74022; 74177; 80053; 81001; 83690; 85025; 96360; 96361; 99284; J7030; Q9967

== ENCOUNTER 2020-09-18 16:42 | Emergency (ER) | payer MEDICARE ==
--- NOTE | 2020-09-18 17:55 | Event Note ---
ED Screening Note Date of service: 09/18/20 Time: 17:54 ED Screening Note: c/o of right finger lacerations from a table saw z today last tdap 2015 per pt This initial assessment/diagnostic orders/clinical plan/treatment(s) is/are subject to change based on patients health status, clinical progression and re- assessment by fellow clinical providers in the ED. Further treatment and workup at subsequent clinical providers discretion. Patient/guardian urged not to elope from the ED as their condition may be serious if not clinically assessed and managed. Initial orders include: xr
--- NOTE | 2020-09-18 18:30 | XRay Report ---
RIGHT HAND 3 VIEWS INDICATION / CLINICAL INFORMATION: cut 2-4 distal fingers with table saw. COMPARISON: None available. FINDINGS: A small piece of cortical bone is absent on the dorsal side of the distal phalanx of the long finger. No other significant skeletal abnormality Signer Name: Raheel TOLENTINO Signed: 09/18/2020 6:26 PM Workstation Name: [id number]
[2020-09-18] MEDS ORDERED: ceFAZolin 1 GM VIAL IM ONE (19:14)
[2020-09-18] MEDS ORDERED: DIPHtheria,PERTUSSIS(ACELL),TETANUS VACCINE/PF 0.5 ML VIAL IM ONE (19:14)
[2020-09-18] MEDS ORDERED: oxyCODONE /ACETAMINOPHEN 5-325MG TAB PO ONE (19:14)
[2020-09-18 19:34] VITALS: BP 108/59
--- NOTE | 2020-09-18 19:36 | Emergency Department Report ---
ED Upper Extremity Inj HPI - General Chief Complaint: Wound/Laceration Stated Complaint: FINGER LACERATION Time Seen by Provider: 09/18/20 17:54 Source: patient Mode of arrival: Ambulatory Limitations: No Limitations - History of Present Illness Complaint: Injury to:: right, finger Other Extremity Injury: Fingers: Right Other Injuries: none Handedness: right Improves With: none Worsens With: none Context: injury (Was utilizing a table saw and he got gastric thousand his hand over into the blade resulting in lacerations to the dorsum distal aspect of his second third and fourth digit. He still has full range of motion bleeding is somewhat controlled.) Associated Symptoms: denies: weakness, numbness, suspects foreign body, nausea/vomiting - Related Data Home Medications Medication Instructions Recorded Confirmed Last Taken Vit B12/Folic Acid/B6/Aa No.15 1 each PO DAILY 01/07/18 01/23/20 01/28/19 08:00 [Glycotrol Capsule] Insulin Glargine [Lantus VIAL] 30 unit SUB-Q QHS 01/28/19 01/23/20 01/27/19 20:00 Lispro Insulin [HumaLOG] 10 unit SQ AC 01/29/19 01/23/20 01/28/19 AtorvaSTATin [Lipitor] 40 mg PO HS 01/23/20 01/23/20 Unknown Canagliflozin (Nf) [Invokana (Nf)] 300 mg PO DAILY 01/23/20 01/23/20 Unknown Ipratropium/Albuterol Sulfate 1 puff INHALATION Q6H 01/23/20 01/23/20 Unknown [Combivent Respimat] Sitagliptin Phosphate [Januvia] 100 mg PO DAILY 01/23/20 01/23/20 Unknown metFORMIN 1,000 mg PO BID 01/23/20 01/23/20 Unknown Previous Rx's Medication Instructions Recorded Last Taken Type Canagliflozin [Invokana] 300 mg PO DAILY #30 tablet 12/11/18 01/28/19 08:00 Rx Escitalopram [Lexapro] 10 mg PO DAILY #30 tablet 12/11/18 01/28/19 08:00 Rx Fluticasone [Flonase] 50 mcg INHALATION DAILY PRN #1 12/11/18 01/28/19 08:00 Rx bottle Ipratropium/Albuterol Sulfate 1 puff PO QID #1 mist.inhal 12/11/18 01/28/19 08:00 Rx [Combivent Respimat] Metformin HCl [Glucophage] 1,000 mg PO BID #60 tablet 12/11/18 01/28/19 08:00 Rx Sitagliptin Phosphate [Januvia] 100 mg PO DAILY #30 tablet 12/11/18 01/28/19 08:00 Rx amLODIPine 5 mg PO DAILY #30 tablet 12/11/18 01/28/19 08:00 Rx lisinopriL [Zestril TAB] 20 mg PO DAILY #30 tablet 12/11/18 01/28/19 08:00 Rx Budesonide/Formoterol Fumarate 10.2 gm IH BID #1 hfa.aer.ad 01/24/20 Unknown Rx [Symbicort 80-4.5 Mcg Inhaler] Prednisone [predniSONE 10 mg 10 mg PO .TAPER #1 tab.ds.pk 01/24/20 Unknown Rx (6-Day Pack, 21 Tabs)] levoFLOXacin [Levaquin] 750 mg PO QDAY #5 tablet 01/24/20 Unknown Rx prednisoLONE [Millipred 5mg (6 day 5 mg PO QDAY 6 Days #21 tab.ds.pk 01/24/20 Unknown Rx 21 tab dosepak)] Dicyclomine [Bentyl] 10 mg PO QID PRN #20 capsule 04/11/20 Unknown Rx Chlorhexidine Gluconate [Hibiclens] 10 ml TP BID #240 liquid 09/18/20 Unknown Rx cephALEXin [Keflex] 500 mg PO Q6HR #40 capsule 09/18/20 Unknown Rx traMADoL [Ultram] 50 mg PO Q6HR PRN #10 tablet 09/18/20 Unknown Rx Allergies Allergy/AdvReac Type Severity Reaction Status Date / Time benazepril HCl AdvReac Rash Verified 09/18/20 17:54 [From Lotensin] theophylline AdvReac Unknown Verified 09/18/20 17:54 ED Review of Systems ROS: Stated complaint: FINGER LACERATION Other details as noted in HPI Comment: All other systems reviewed and negative ED Past Medical Hx - Past Medical History Hx Hypertension: Yes Hx Heart Attack/AMI: No (cardiac arrest, mild CAD 30%) Hx Diabetes: Yes (12 years) Hx Arthritis: Yes (right knee hands) Hx Kidney Stones: Yes Hx COPD: Yes Additional medical history: left bundle branch block, respiratory failure, intubated x 5. last pneumovax 12/01/2016. last flu shot 12/01/2016. sleep apnea/needs CPAP - Surgical History Additional Surgical History: hernia repair. kidney stones removed. cataracts - Social History Smoking Status: Former Smoker Substance Use Type: None - Medications Home Medications: Home Medications Medication Instructions Recorded Confirmed Last Taken Type Vit B12/Folic Acid/B6/Aa No.15 1 each PO DAILY 01/07/18 01/23/20 01/28/19 08:00 History [Glycotrol Capsule] Canagliflozin [Invokana] 300 mg PO DAILY #30 tablet 12/11/18 01/23/20 01/28/19 08:00 Rx Escitalopram [Lexapro] 10 mg PO DAILY #30 tablet 12/11/18 01/23/20 01/28/19 08:00 Rx Fluticasone [Flonase] 50 mcg INHALATION DAILY PRN #1 12/11/18 01/23/20 01/28/19 08:00 Rx bottle Ipratropium/Albuterol Sulfate 1 puff PO QID #1 mist.inhal 12/11/18 01/23/20 01/28/19 08:00 Rx [Combivent Respimat] Metformin HCl [Glucophage] 1,000 mg PO BID #60 tablet 12/11/18 01/23/20 01/28/19 08:00 Rx Sitagliptin Phosphate [Januvia] 100 mg PO DAILY #30 tablet 12/11/18 01/23/20 01/28/19 08:00 Rx amLODIPine 5 mg PO DAILY #30 tablet 12/11/18 01/23/20 01/28/19 08:00 Rx lisinopriL [Zestril TAB] 20 mg PO DAILY #30 tablet 12/11/18 01/23/20 01/28/19 08:00 Rx Insulin Glargine [Lantus VIAL] 30 unit SUB-Q QHS 01/28/19 01/23/20 01/27/19 20:00 History Lispro Insulin [HumaLOG] 10 unit SQ AC 01/29/19 01/23/20 01/28/19 History AtorvaSTATin [Lipitor] 40 mg PO HS 01/23/20 01/23/20 Unknown History Canagliflozin (Nf) [Invokana (Nf)] 300 mg PO DAILY 01/23/20 01/23/20 Unknown History Ipratropium/Albuterol Sulfate 1 puff INHALATION Q6H 01/23/20 01/23/20 Unknown History [Combivent Respimat] Sitagliptin Phosphate [Januvia] 100 mg PO DAILY 01/23/20 01/23/20 Unknown History metFORMIN 1,000 mg PO BID 01/23/20 01/23/20 Unknown History Budesonide/Formoterol Fumarate 10.2 gm IH BID #1 hfa.aer.ad 01/24/20 Unknown Rx [Symbicort 80-4.5 Mcg Inhaler] Prednisone [predniSONE 10 mg 10 mg PO .TAPER #1 tab.ds.pk 01/24/20 Unknown Rx (6-Day Pack, 21 Tabs)] levoFLOXacin [Levaquin] 750 mg PO QDAY #5 tablet 01/24/20 Unknown Rx prednisoLONE [Millipred 5mg (6 day 5 mg PO QDAY 6 Days #21 tab.ds.pk 01/24/20 Unknown Rx 21 tab dosepak)] Dicyclomine [Bentyl] 10 mg PO QID PRN #20 capsule 04/11/20 Unknown Rx Chlorhexidine Gluconate [Hibiclens] 10 ml TP BID #240 liquid 09/18/20 Unknown Rx cephALEXin [Keflex] 500 mg PO Q6HR #40 capsule 09/18/20 Unknown Rx traMADoL [Ultram] 50 mg PO Q6HR PRN #10 tablet 09/18/20 Unknown Rx ED Physical Exam - General Limitations: No Limitations General appearance: alert, in no apparent distress - Head Head exam: Present: atraumatic, normocephalic - Eye Eye exam: Present: normal appearance, PERRL Pupils: Present: normal accommodation - ENT ENT exam: Present: normal exam, mucous membranes moist, TM's normal bilaterally - Neck Neck exam: Present: normal inspection, full ROM - Respiratory Respiratory exam: Present: normal lung sounds bilaterally. Absent: respiratory distress, wheezes, rales, chest wall tenderness, accessory muscle use - Cardiovascular Cardiovascular Exam: Present: regular rate, normal rhythm, normal heart sounds. Absent: systolic murmur, diastolic murmur, rubs, gallop - GI/Abdominal GI/Abdominal exam: Present: soft, normal bowel sounds. Absent: tenderness, guarding, rebound, hyperactive bowel sounds, hypoactive bowel sounds, organomegaly, bruit, pulsatile mass - Rectal Rectal exam: Present: deferred - Extremities Exam Extremities exam: Present: normal inspection, normal capillary refill. Absent: calf tenderness - Expanded Upper Extremity Exam Left Hand L/R Back: 1 - Partial thickness abrasions to lacerations to the second and fourth digit near full-thickness lacerated abrasive wounds to the distal third Vascular: Present: vascular compromise - Back Exam Back exam: Present: normal inspection. Absent: CVA tenderness (R), CVA tenderness (L) - Neurological Exam Neurological exam: Present: alert, oriented X3, CN II-XII intact - Psychiatric Psychiatric exam: Present: normal affect, normal mood - Skin Skin exam: Present: warm, dry, intact, normal color. Absent: rash - Procedure Description Procedures done: A finger splint placed on the third digit Critical care attestation.: If time is entered above; I have spent that time in minutes in the direct care of this critically ill patient, excluding procedure time. ED Disposition Clinical Impression: Finger laceration, Contact with powered saw as cause of accidental injury, Tetanus toxoid inoculation Disposition: - TO HOME OR SELFCARE Is pt being admited?: No Does the pt Need Aspirin: No Condition: Stable Instructions: Acute Wound Care (ED), Tetanus Toxoid (Injection) Additional Instructions: Please keep wound clean antibacterial soap and water finger splint was placed on the third digit to help to promote clinical healing at this finger was nicked by the soft with a partial indentation to the phalangeal not resulting in a complete fracture Referrals: PRIMARY CARE,MD [Primary Care Provider] - 2-3 Days (Please follow-up to primary care provider in 48 hours for wound reevaluation)
== END 2020-09-18 20:20 | disposition home or self-care (01) ==
LOC: ED 16:42
DX: S61.212A Laceration without foreign body of right middle finger without damage to nail, initial encounter (principal); T88.1XXA Other complications following immunization, not elsewhere classified, initial encounter; I10 Essential (primary) hypertension; E11.9 Type 2 diabetes mellitus without complications; M19.90 Unspecified osteoarthritis, unspecified site; J44.9 Chronic obstructive pulmonary disease, unspecified; Z87.891 Personal history of nicotine dependence; Z79.899 Other long term (current) drug therapy; Z88.8 Allergy status to other drugs, medicaments and biological substances; W31.2XXA Contact with powered woodworking and forming machines, initial encounter; Y93.89 Activity, other specified; Y92.89 Other specified places as the place of occurrence of the external cause; Y99.8 Other external cause status
CPT/HCPCS: 29130; 73130; 90471; 90715; 96372; 99283; J0690

== ENCOUNTER 2020-10-27 00:47 | Emergency (ER) | payer MEDICARE ==
[2020-10-27 03:14] LABS: Hematocrit 36.5 % (35.5-45.6); Hemoglobin 12.2 gm/dl (11.8-15.2); Mean Corpuscular HGB Conc 34 % (32-34); Mean Corpuscular Volume 87 fl (84-94); Platelet Count 106 K/mm3 (140-440); Red Blood Count 4.22 M/mm3 (3.65-5.03); Red Cell Distribution Width 16.2 % (13.2-15.2)
[2020-10-27 03:19] LABS: Basophils % (Auto) 0.7 % (0.0-1.8); Eosinophils % (Auto) 0.4 % (0.0-4.3); Lymphocytes # (Auto) 0.5 K/mm3 (1.2-5.4); Lymphocytes % (Auto) 10.5 % (13.4-35.0); Monocytes # (Auto) 0.7 K/mm3 (0.0-0.8)
[2020-10-27] MEDS ORDERED: ONDANSETRON 4 MG/2 ML INJ IV ONE (03:20)
--- NOTE | 2020-10-27 03:23 | Emergency Department Report ---
ED General Adult HPI - General Chief complaint: Nausea/Vomiting/Diarrhea Stated complaint: nausea, weak PUI?: No Time Seen by Provider: 10/27/20 03:07 Source: patient, RN notes reviewed, old records reviewed Limitations: Physical Limitation - History of Present Illness Initial comments: The patient was evaluated in the emergency department for symptoms described in the history of present illness. He/she was evaluated in the context of the global COVID-19 pandemic, which necessitated consideration that the patient might be at risk for infection with the virus that causes COVID-19. Institutional protocols and algorithms that pertain to the evaluation of patients at risk for COVID-19 are in a state of rapid change based on information released by regulatory bodies including the CDC and federal and state organizations. These policies and algorithms were followed during the patient's care in the emergency department. Please note that these policies, procedures and recommendations changed on a rapid basis. The patient is a 75-year-old gentleman. His past medical history includes hypertension, diabetes, COPD on home oxygen, chronic left bundle branch block. The patient is not accompanied by friends or family at this time for additional information or collateral information. The patient is confused and a poor historian. The patient presents with an initial complaint of nausea. He believes that he received some sort of shot or vaccination on the of this month, perhaps a flu shot. He states that he feels nauseous. He is not sure if he threw up. He is not sure if he is having pain. He denies headache at this time, neck pain at this time, chest pain at this time. He is not sure if he is having shortness of breath. He states "I do not know what is happening, I do not know where I am." He is not accompanied by friends or family for additional information or collateral information. He states he has been taking a medication at home to help out with nausea, but he thinks it might be a breathing medication. Again, he is not sure. The patient cannot tell me what triggered his presentation to the emergency room this evening. The patient is not able to describe exacerbating, or relieving factors. The patient does not think that he is having urinary symptoms. -: days(s) Severity scale (0 -10): 0 Quality: other Consistency: other Improves with: other Worsens with: other Associated Symptoms: other - Related Data Home Medications Medication Instructions Recorded Confirmed Last Taken Vit B12/Folic Acid/B6/Aa No.15 1 each PO DAILY 01/07/18 01/23/20 01/28/19 08:00 [Glycotrol Capsule] Insulin Glargine [Lantus VIAL] 30 unit SUB-Q QHS 01/28/19 01/23/20 01/27/19 20:00 Lispro Insulin [HumaLOG] 10 unit SQ AC 01/29/19 01/23/20 01/28/19 AtorvaSTATin [Lipitor] 40 mg PO HS 01/23/20 01/23/20 Unknown Canagliflozin (Nf) [Invokana (Nf)] 300 mg PO DAILY 01/23/20 01/23/20 Unknown Ipratropium/Albuterol Sulfate 1 puff INHALATION Q6H 01/23/20 01/23/20 Unknown [Combivent Respimat] Sitagliptin Phosphate [Januvia] 100 mg PO DAILY 01/23/20 01/23/20 Unknown metFORMIN 1,000 mg PO BID 01/23/20 01/23/20 Unknown Previous Rx's Medication Instructions Recorded Last Taken Type Canagliflozin [Invokana] 300 mg PO DAILY #30 tablet 12/11/18 01/28/19 08:00 Rx Escitalopram [Lexapro] 10 mg PO DAILY #30 tablet 12/11/18 01/28/19 08:00 Rx Fluticasone [Flonase] 50 mcg INHALATION DAILY PRN #1 12/11/18 01/28/19 08:00 Rx bottle Ipratropium/Albuterol Sulfate 1 puff PO QID #1 mist.inhal 12/11/18 01/28/19 08:00 Rx [Combivent Respimat] Metformin HCl [Glucophage] 1,000 mg PO BID #60 tablet 12/11/18 01/28/19 08:00 Rx Sitagliptin Phosphate [Januvia] 100 mg PO DAILY #30 tablet 12/11/18 01/28/19 08:00 Rx amLODIPine 5 mg PO DAILY #30 tablet 12/11/18 01/28/19 08:00 Rx lisinopriL [Zestril TAB] 20 mg PO DAILY #30 tablet 12/11/18 01/28/19 08:00 Rx Budesonide/Formoterol Fumarate 10.2 gm IH BID #1 hfa.aer.ad 01/24/20 Unknown Rx [Symbicort 80-4.5 Mcg Inhaler] Prednisone [predniSONE 10 mg 10 mg PO .TAPER #1 tab.ds.pk 01/24/20 Unknown Rx (6-Day Pack, 21 Tabs)] prednisoLONE [Millipred 5mg (6 day 5 mg PO QDAY 6 Days #21 tab.ds.pk 01/24/20 Unknown Rx 21 tab dosepak)] Dicyclomine [Bentyl] 10 mg PO QID PRN #20 capsule 04/11/20 Unknown Rx Chlorhexidine Gluconate [Hibiclens] 10 ml TP BID #240 liquid 09/18/20 Unknown Rx cephALEXin [Keflex] 500 mg PO Q6HR #40 capsule 09/18/20 Unknown Rx Markus Root [Markus] 250 mg PO QID PRN #30 capsule 10/27/20 Unknown Rx Ondansetron [Zofran Odt] 4 mg PO Q8HR PRN #20 tab.rapdis 10/27/20 Unknown Rx Allergies Allergy/AdvReac Type Severity Reaction Status Date / Time benazepril HCl AdvReac Rash Verified 09/18/20 17:54 [From Lotensin] theophylline AdvReac Unknown Verified 09/18/20 17:54 ED Review of Systems ROS: Stated complaint: COPD Other details as noted in HPI Constitutional: see HPI, malaise. denies: fever Eyes: as per HPI. denies: vision change ENT: as per HPI Respiratory: see HPI. denies: cough Cardiovascular: as per HPI. 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 last pneumovax 12/01/2016. last flu shot 12/01/2016. sleep apnea/needs CPAP - Surgical History Past Surgical History?: Yes Additional Surgical History: hernia repair. kidney stones removed. cataracts - Social History Smoking Status: Never Smoker Substance Use Type: None - Medications Home Medications: Home Medications Medication Instructions Recorded Confirmed Last Taken Type Vit B12/Folic Acid/B6/Aa No.15 1 each PO DAILY 01/07/18 01/23/20 01/28/19 08:00 History [Glycotrol Capsule] Canagliflozin [Invokana] 300 mg PO DAILY #30 tablet 12/11/18 01/23/20 01/28/19 08:00 Rx Escitalopram [Lexapro] 10 mg PO DAILY #30 tablet 12/11/18 01/23/20 01/28/19 08:00 Rx Fluticasone [Flonase] 50 mcg INHALATION DAILY PRN #1 12/11/18 01/23/20 01/28/19 08:00 Rx bottle Ipratropium/Albuterol Sulfate 1 puff PO QID #1 mist.inhal 12/11/18 01/23/20 01/28/19 08:00 Rx [Combivent Respimat] Metformin HCl [Glucophage] 1,000 mg PO BID #60 tablet 12/11/18 01/23/20 01/28/19 08:00 Rx Sitagliptin Phosphate [Januvia] 100 mg PO DAILY #30 tablet 12/11/18 01/23/20 01/28/19 08:00 Rx amLODIPine 5 mg PO DAILY #30 tablet 12/11/18 01/23/20 01/28/19 08:00 Rx lisinopriL [Zestril TAB] 20 mg PO DAILY #30 tablet 12/11/18 01/23/20 01/28/19 08:00 Rx Insulin Glargine [Lantus VIAL] 30 unit SUB-Q QHS 01/28/19 01/23/20 01/27/19 20:00 History Lispro Insulin [HumaLOG] 10 unit SQ AC 01/29/19 01/23/20 01/28/19 History AtorvaSTATin [Lipitor] 40 mg PO HS 01/23/20 01/23/20 Unknown History Canagliflozin (Nf) [Invokana (Nf)] 300 mg PO DAILY 01/23/20 01/23/20 Unknown History Ipratropium/Albuterol Sulfate 1 puff INHALATION Q6H 01/23/20 01/23/20 Unknown History [Combivent Respimat] Sitagliptin Phosphate [Januvia] 100 mg PO DAILY 01/23/20 01/23/20 Unknown History metFORMIN 1,000 mg PO BID 01/23/20 01/23/20 Unknown History Budesonide/Formoterol Fumarate 10.2 gm IH BID #1 hfa.aer.ad 01/24/20 Unknown Rx [Symbicort 80-4.5 Mcg Inhaler] Prednisone [predniSONE 10 mg 10 mg PO .TAPER #1 tab.ds.pk 01/24/20 Unknown Rx (6-Day Pack, 21 Tabs)] prednisoLONE [Millipred 5mg (6 day 5 mg PO QDAY 6 Days #21 tab.ds.pk 01/24/20 Unknown Rx 21 tab dosepak)] Dicyclomine [Bentyl] 10 mg PO QID PRN #20 capsule 04/11/20 Unknown Rx Chlorhexidine Gluconate [Hibiclens] 10 ml TP BID #240 liquid 09/18/20 Unknown Rx cephALEXin [Keflex] 500 mg PO Q6HR #40 capsule 09/18/20 Unknown Rx Markus Root [Markus] 250 mg PO QID PRN #30 capsule 10/27/20 Unknown Rx Ondansetron [Zofran Odt] 4 mg PO Q8HR PRN #20 tab.rapdis 10/27/20 Unknown Rx ED Physical Exam - General Limitations: Other (Patient very anxious) General appearance: anxious - Head Head exam: Present: atraumatic, normocephalic - Eye Eye exam: Present: normal appearance, EOMI. Absent: nystagmus - ENT ENT exam: Present: normal exam, normal orophraynx, mucous membranes moist, normal external ear exam - Neck Neck exam: Present: normal inspection, full ROM. Absent: tenderness, meningismus - Respiratory Respiratory exam: Present: decreased breath sounds. Absent: respiratory distress, wheezes, rales, rhonchi, stridor - Cardiovascular Cardiovascular Exam: Present: regular rate, normal rhythm, normal heart sounds. Absent: bradycardia, tachycardia, irregular rhythm, systolic murmur, diastolic murmur, rubs, gallop - GI/Abdominal GI/Abdominal exam: Present: soft, normal bowel sounds. Absent: distended, tenderness, guarding, rebound, rigid, pulsatile mass - Rectal Rectal exam: Present: deferred - Extremities Exam Extremities exam: Present: normal inspection, full ROM, other (2+ pulses noted in the bilateral upper and lower extremities. There is no palpable cord. negative Homans sign. Muscular compartments are soft. The pelvis is stable.). Absent: pedal edema, calf tenderness - Back Exam Back exam: Present: normal inspection, full ROM. Absent: tenderness, CVA tenderness (R), CVA tenderness (L), paraspinal tenderness, vertebral tenderness - Neurological Exam Neurological exam: Present: alert, oriented X3, other (No facial droop. Tongue midline. Extraocular movements intact bilaterally. Facial sensation intact to light touch in V1, V2, V3 distribution bilaterally. 5 and a 5 strength in 4 extremities. Sensation intact to light touch in 4 extremities.) - Psychiatric Psychiatric exam: Present: anxious - Skin Skin exam: Present: warm, dry, intact, normal color. Absent: rash ED Course Vital Signs 10/27/20 10/27/20 10/27/20 01:50 04:10 04:30 Temperature 99.3 F 100.1 F H Pulse Rate 91 H 81 83 Respiratory 20 19 24 Rate Blood Pressure 111/58 Blood Pressure 106/51 103/53 [Left] O2 Sat by Pulse 96 98 99 Oximetry 10/27/20 10/27/20 10/27/20 04:46 05:00 05:15 Temperature Pulse Rate 79 77 81 Respiratory 20 18 18 Rate Blood Pressure 111/58 106/51 111/60 Blood Pressure [Left] O2 Sat by Pulse 94 97 97 Oximetry 10/27/20 05:30 Temperature Pulse Rate 80 Respiratory 21 Rate Blood Pressure 119/57 Blood Pressure [Left] O2 Sat by Pulse 96 Oximetry - Reevaluation(s) Reevaluation #1: 10/27/20 03:30 Differential diagnosis, including but not limited to: Pneumonia, urinary tract infection, obstruction, colitis, diverticulitis, intracranial lesion, electrolyte derangement Assessment and plan: 75-year-old gentleman who is very hard of hearing. Nursing team informs to me that on their initial triage, patient is alert, oriented, sober, with a lucid thought process. The patient apparently was having a very hard time hearing me because of facemasks that needed to be worn secondary to the Covid pandemic. Check basic labs, CT scan of the brain, abdomen pelvis, urinalysis, EKG, serum toxicology study, treat symptoms, and reassess. No active vomiting, but we will treat with Zofran. 10/27/20 05:03 I have gone back to reassess the patient. He is sleeping comfortably in his stretcher, and he is not in any acute distress. His laboratory studies are unremarkable. His objective imaging studies are unremarkable. The patient states he is very hard of hearing. I have adjusted my face mask, and gone back to reinterview the patient. He is currently alert to name, month, and location. He denies physical pain at this time. He states he lives at home with family members. His objective diagnostic testing is unremarkable. His physical examination is unremarkable. When I speak loudly, and slowly to this patient, he is able to understand everything that I say, and able to offer a fairly lucid history. We will discharge with as needed Zofran, and instructions to closely follow-up as an outpatient. ED Medical Decision Making - Lab Data Result diagrams: 10/27/20 02:09 10/27/20 02:09 Vital Signs 10/27/20 01:50 Temperature 99.3 F Pulse Rate 91 H Respiratory 20 Rate Blood Pressure 106/51 [Left] O2 Sat by Pulse 96 Oximetry Lab Results 10/27/20 10/27/20 Range/Units 02:09 02:09 WBC 4.4 L (4.5-11.0) K/mm3 RBC 4.22 (3.65-5.03) M/mm3 Hgb 12.2 (11.8-15.2) gm/dl Hct 36.5 (35.5-45.6) % MCV 87 (84-94) fl MCH 29 (28-32) pg MCHC 34 (32-34) % RDW 16.2 H (13.2-15.2) % Plt Count 106 L (140-440) K/mm3 Lymph % (Auto) 10.5 L (13.4-35.0) % [place] % (Auto) [employer] [place] [place] Eos % (Auto) 0.4 (0.0-4.3) % Baso % (Auto) 0.7 (0.0-1.8) % Lymph # (Auto) 0.5 L (1.2-5.4) K/mm3 [place] # (Auto) 0.7 (0.0-0.8) K/mm3 Eos # (Auto) 0.0 (0.0-0.4) K/mm3 Baso # (Auto) 0.0 (0.0-0.1) K/mm3 Seg Neutrophils % 71.5 H (40.0-70.0) % Seg Neutrophils # 3.1 (1.8-7.7) K/mm3 Sodium 130 L (137-145) mmol/L Potassium 4.0 (3.6-5.0) mmol/L Chloride 96.1 L (98-107) mmol/L Carbon Dioxide 20 L (22-30) mmol/L Anion Gap 18 mmol/L BUN 19 (9-20) mg/dL Creatinine 0.9 (0.8-1.3) mg/dL Estimated GFR > 60 ml/min BUN/Creatinine Ratio 21 % Glucose 157 H (75-100) mg/dL Calcium 9.3 (8.4-10.2) mg/dL Vital Signs 10/27/20 10/27/20 01:50 04:10 Temperature 99.3 F 100.1 F H Pulse Rate 91 H 81 Respiratory 20 19 Rate Blood Pressure 106/51 103/53 [Left] O2 Sat by Pulse 96 98 Oximetry Lab Results 10/27/20 10/27/20 10/27/20 Range/Units 02:09 02:09 03:35 WBC 4.4 L (4.5-11.0) K/mm3 RBC 4.22 (3.65-5.03) M/mm3 Hgb 12.2 (11.8-15.2) gm/dl Hct 36.5 (35.5-45.6) % MCV 87 (84-94) fl MCH 29 (28-32) pg MCHC 34 (32-34) % RDW 16.2 H (13.2-15.2) % Plt Count 106 L (140-440) K/mm3 Lymph % (Auto) 10.5 L (13.4-35.0) % [place] % (Auto) [place] Eos % (Auto) 0.4 (0.0-4.3) % Baso % (Auto) 0.7 (0.0-1.8) % Lymph # (Auto) 0.5 L (1.2-5.4) K/mm3 [place] # (Auto) 0.7 (0.0-0.8) K/mm3 Eos # (Auto) 0.0 (0.0-0.4) K/mm3 Baso # (Auto) 0.0 (0.0-0.1) K/mm3 Seg Neutrophils % 71.5 H (40.0-70.0) % Seg Neutrophils # 3.1 (1.8-7.7) K/mm3 PT (12.2-14.9) Sec. INR (0.87-1.13) ABG pH 7.381 (7.350-7.450) pH Units ABG pCO2 35.9 mm Hg ABG pO2 105.3 H (80.0-90.0) mm Hg ABG HCO3 20.8 (20.0-26.0) mmol/L ABG O2 Saturation 97.7 (95.0-99.0) % ABG O2 Content 16.8 (0.0-44) ABG Base Excess -3.7 L (-2.0-3.0) mmol/L ABG Hemoglobin 12.3 L (14.0-18.0) gm/dl ABG Carboxyhemoglobin 1.0 (0.0-5.0) % ABG Methemoglobin 0.7 (0.0-1.5) % Oxyhemoglobin 96.1 (95.0-99.0) % FiO2 28 % Sodium 130 L (137-145) mmol/L Potassium 4.0 (3.6-5.0) mmol/L Chloride 96.1 L (98-107) mmol/L Carbon Dioxide 20 L (22-30) mmol/L Anion Gap 18 mmol/L BUN 19 (9-20) mg/dL Creatinine 0.9 (0.8-1.3) mg/dL Estimated GFR > 60 ml/min BUN/Creatinine Ratio 21 % Glucose 157 H (75-100) mg/dL Lactic Acid (0.7-2.0) mmol/L Calcium 9.3 (8.4-10.2) mg/dL Magnesium (1.7-2.3) mg/dL Total Creatine Kinase (55-170) units/L Troponin T (0.00-0.029) ng/mL TSH (0.270-4.200) mlU/mL Urine Color (Yellow) Urine Turbidity (Clear) Urine pH (5.0-7.0) Ur Specific Donner (1.003-1.030) Urine Protein (Negative) mg/dL Urine Glucose (UA) (Negative) mg/dL Urine Ketones (Negative) mg/dL Urine Blood (Negative) Urine Nitrite (Negative) Urine Bilirubin (Negative) Urine Urobilinogen (<2.0) mg/dL Ur Leukocyte Esterase (Negative) Urine WBC (Auto) (0.0-6.0) /HPF Urine RBC (Auto) (0.0-6.0) /HPF Salicylates (2.8-20.0) mg/dL Acetaminophen (10.0-30.0) ug/mL Plasma/Serum Alcohol (0-0.07) % 10/27/20 10/27/20 10/27/20 Range/Units 03:41 03:41 03:41 WBC (4.5-11.0) K/mm3 RBC (3.65-5.03) M/mm3 Hgb (11.8-15.2) gm/dl Hct (35.5-45.6) % MCV (84-94) fl MCH (28-32) pg MCHC (32-34) % RDW (13.2-15.2) % Plt Count (140-440) K/mm3 Lymph % (Auto) (13.4-35.0) % [place] % (Auto) Eos % (Auto) (0.0-4.3) % Baso % (Auto) (0.0-1.8) % Lymph # (Auto) (1.2-5.4) K/mm3 [place] # (Auto) (0.0-0.8) K/mm3 Eos # (Auto) (0.0-0.4) K/mm3 Baso # (Auto) (0.0-0.1) K/mm3 Seg Neutrophils % (40.0-70.0) % Seg Neutrophils # (1.8-7.7) K/mm3 PT 13.5 (12.2-14.9) Sec. INR 1.05 (0.87-1.13) ABG pH (7.350-7.450) pH Units ABG pCO2 mm Hg ABG pO2 (80.0-90.0) mm Hg ABG HCO3 (20.0-26.0) mmol/L ABG O2 Saturation (95.0-99.0) % ABG O2 Content (0.0-44) ABG Base Excess (-2.0-3.0) mmol/L ABG Hemoglobin (14.0-18.0) gm/dl ABG Carboxyhemoglobin (0.0-5.0) % ABG Methemoglobin (0.0-1.5) % Oxyhemoglobin (95.0-99.0) % FiO2 % Sodium (137-145) mmol/L Potassium (3.6-5.0) mmol/L Chloride (98-107) mmol/L Carbon Dioxide (22-30) mmol/L Anion Gap mmol/L BUN (9-20) mg/dL Creatinine (0.8-1.3) mg/dL Estimated GFR ml/min BUN/Creatinine Ratio % Glucose (75-100) mg/dL Lactic Acid (0.7-2.0) mmol/L Calcium (8.4-10.2) mg/dL Magnesium 1.30 L (1.7-2.3) mg/dL Total Creatine Kinase 100 (55-170) units/L Troponin T < 0.010 (0.00-0.029) ng/mL TSH 0.865 (0.270-4.200) mlU/mL Urine Color (Yellow) Urine Turbidity (Clear) Urine pH (5.0-7.0) Ur Specific Donner (1.003-1.030) Urine Protein (Negative) mg/dL Urine Glucose (UA) (Negative) mg/dL Urine Ketones (Negative) mg/dL Urine Blood (Negative) Urine Nitrite (Negative) Urine Bilirubin (Negative) Urine Urobilinogen (<2.0) mg/dL Ur Leukocyte Esterase (Negative) Urine WBC (Auto) (0.0-6.0) /HPF Urine RBC (Auto) (0.0-6.0) /HPF Salicylates (2.8-20.0) mg/dL Acetaminophen (10.0-30.0) ug/mL Plasma/Serum Alcohol (0-0.07) % 10/27/20 10/27/20 10/27/20 Range/Units 03:41 03:41 03:41 WBC (4.5-11.0) K/mm3 RBC (3.65-5.03) M/mm3 Hgb (11.8-15.2) gm/dl Hct (35.5-45.6) % MCV (84-94) fl MCH (28-32) pg MCHC (32-34) % RDW (13.2-15.2) % Plt Count (140-440) K/mm3 Lymph % (Auto) (13.4-35.0) % [place] % (Auto) Eos % (Auto) (0.0-4.3) % Baso % (Auto) (0.0-1.8) % Lymph # (Auto) (1.2-5.4) K/mm3 [place] # (Auto) (0.0-0.8) K/mm3 Eos # (Auto) (0.0-0.4) K/mm3 Baso # (Auto) (0.0-0.1) K/mm3 Seg Neutrophils % (40.0-70.0) % Seg Neutrophils # (1.8-7.7) K/mm3 PT (12.2-14.9) Sec. INR (0.87-1.13) ABG pH (7.350-7.450) pH Units ABG pCO2 mm Hg ABG pO2 (80.0-90.0) mm Hg ABG HCO3 (20.0-26.0) mmol/L ABG O2 Saturation (95.0-99.0) % ABG O2 Content (0.0-44) ABG Base Excess (-2.0-3.0) mmol/L ABG Hemoglobin (14.0-18.0) gm/dl ABG Carboxyhemoglobin (0.0-5.0) % ABG Methemoglobin (0.0-1.5) % Oxyhemoglobin (95.0-99.0) % FiO2 % Sodium (137-145) mmol/L Potassium (3.6-5.0) mmol/L Chloride (98-107) mmol/L Carbon Dioxide (22-30) mmol/L Anion Gap mmol/L BUN (9-20) mg/dL Creatinine (0.8-1.3) mg/dL Estimated GFR ml/min BUN/Creatinine Ratio % Glucose (75-100) mg/dL Lactic Acid (0.7-2.0) mmol/L Calcium (8.4-10.2) mg/dL Magnesium (1.7-2.3) mg/dL Total Creatine Kinase (55-170) units/L Troponin T (0.00-0.029) ng/mL TSH (0.270-4.200) mlU/mL Urine Color (Yellow) Urine Turbidity (Clear) Urine pH (5.0-7.0) Ur Specific [place] (1.003-1.030) Urine Protein (Negative) mg/dL Urine Glucose (UA) (Negative) mg/dL Urine Ketones (Negative) mg/dL Urine Blood (Negative) Urine Nitrite (Negative) Urine Bilirubin (Negative) Urine Urobilinogen (<2.0) mg/dL Ur Leukocyte Esterase (Negative) Urine WBC (Auto) (0.0-6.0) /HPF Urine RBC (Auto) (0.0-6.0) /HPF Salicylates < 0.3 L (2.8-20.0) mg/dL Acetaminophen 5.0 L (10.0-30.0) ug/mL Plasma/Serum Alcohol < 0.01 (0-0.07) % 10/27/20 10/27/20 Range/Units 03:41 Unknown WBC (4.5-11.0) K/mm3 RBC (3.65-5.03) M/mm3 Hgb (11.8-15.2) gm/dl Hct (35.5-45.6) % MCV (84-94) fl MCH (28-32) pg MCHC (32-34) % RDW (13.2-15.2) % Plt Count (140-440) K/mm3 Lymph % (Auto) (13.4-35.0) % [place] % (Auto) Eos % (Auto) (0.0-4.3) % Baso % (Auto) (0.0-1.8) % Lymph # (Auto) (1.2-5.4) K/mm3 [place] # (Auto) (0.0-0.8) K/mm3 Eos # (Auto) (0.0-0.4) K/mm3 Baso # (Auto) (0.0-0.1) K/mm3 Seg Neutrophils % (40.0-70.0) % Seg Neutrophils # (1.8-7.7) K/mm3 PT (12.2-14.9) Sec. INR (0.87-1.13) ABG pH (7.350-7.450) pH Units ABG pCO2 mm Hg ABG pO2 (80.0-90.0) mm Hg ABG HCO3 (20.0-26.0) mmol/L ABG O2 Saturation (95.0-99.0) % ABG O2 Content (0.0-44) ABG Base Excess (-2.0-3.0) mmol/L ABG Hemoglobin (14.0-18.0) gm/dl ABG Carboxyhemoglobin (0.0-5.0) % ABG Methemoglobin (0.0-1.5) % Oxyhemoglobin (95.0-99.0) % FiO2 % Sodium (137-145) mmol/L Potassium (3.6-5.0) mmol/L Chloride (98-107) mmol/L Carbon Dioxide (22-30) mmol/L Anion Gap mmol/L BUN (9-20) mg/dL Creatinine (0.8-1.3) mg/dL Estimated GFR ml/min BUN/Creatinine Ratio % Glucose (75-100) mg/dL Lactic Acid 0.60 L (0.7-2.0) mmol/L Calcium (8.4-10.2) mg/dL Magnesium (1.7-2.3) mg/dL Total Creatine Kinase (55-170) units/L Troponin T (0.00-0.029) ng/mL TSH (0.270-4.200) mlU/mL Urine Color Straw (Yellow) Urine Turbidity Clear (Clear) Urine pH 6.0 (5.0-7.0) Ur Specific [place] 1.006 (1.003-1.030) Urine Protein <15 mg/dl (Negative) mg/dL Urine Glucose (UA) >=500 (Negative) mg/dL Urine Ketones Tr (Negative) mg/dL Urine Blood Sm (Negative) Urine Nitrite Neg (Negative) Urine Bilirubin Neg (Negative) Urine Urobilinogen < 2.0 (<2.0) mg/dL Ur Leukocyte Esterase Neg (Negative) Urine WBC (Auto) < 1.0 (0.0-6.0) /HPF Urine RBC (Auto) < 1.0 (0.0-6.0) /HPF Salicylates (2.8-20.0) mg/dL Acetaminophen (10.0-30.0) ug/mL Plasma/Serum Alcohol (0-0.07) % - EKG Data -: EKG Interpreted by Pr - EKG Data 10/27/20 03:32 This is a sinus rhythm, first-degree AV block, normal axis, left bundle branch block morphology, interventricular conduction delay, and QTC is prolonged. There is no endorsement of chest pain. This EKG is not a STEMI. Is unchanged from prior EKG from January 2019. - Radiology Data Radiology results: pending, report reviewed, image reviewed Print Report Referring Physician: MIKEY CUENCA Patient Name: LIZA VALIENTE Date of : 1945 Sex: Male Report Date: 2020-10-27 Report Status: Finalized Findings [facility] [address] [place] [address] XRay Report Signed Patient: LIZA VALIENTE MR#: [id number] : 1945 Acct:[id number] Age/Sex: 75 / M ADM Date: 10/27/20 Loc: ED Attending Dr: Ordering Physician: MIKEY CUENCA MD Date of Service: 10/27/20 Procedure(s): XR chest 1V ap Accession Number(s): [id number] cc: MIKEY CUENCA MD Fluoro Time In Minutes: CHEST 1 VIEW INDICATION: weakness, nausea. COMPARISON: 01/23/2020 FINDINGS: SUPPORT DEVICES: None. HEART: Within normal limits. LUNGS/PLEURA: Minimal streaky bibasilar airspace disease with otherwise clear lungs. ADDITIONAL FINDINGS: None. IMPRESSION: 1. Pulmonary findings as above. Signer Name: Alexi Pearson MD Signed: 10/27/2020 3:52 AM Workstation Name: [id number] Transcribed By: SHABNAM Dictated By: Alexi Pearson MD Electronically Authenticated By: Alexi Pearson MD Signed Date/Time: 10/27/20351 DD/ 9 TD/TT: Noncontrast CT scan of the brain negative for acute findings. Noncontrast CT scan of the abdomen pelvis negative for acute findings. Critical care attestation.: If time is entered above; I have spent that time in minutes in the direct care of this critically ill patient, excluding procedure time. ED Disposition Clinical Impression: History of nausea, History of COPD, General medical exam, History of anxiety Disposition: DC-01 TO HOME OR SELFCARE Is pt being admited?: No Does the pt Need Aspirin: No Condition: Good Additional Instructions: Cultures were sent today, and results will be available in the next 3 to 5 days. Please have a primary care doctor contact the medical records department to obtain culture results. Patient will be prescribed markus and Zofran as needed for nausea and vomiting. Take them as needed for nausea. Avoid consumption of heavy, spicy foods, Motrin, ibuprofen, Naprosyn, Aleve, alcohol. Recommend follow-up with your primary care doctor in 1 to 2 days for a repeat c heckup/evaluation. Alternatively, the patient may return to this emergency room for a repeat checkup/evaluation. Please return to the emergency room right away with new pain, worsened pain, migration of pain, projectile vomiting, change in mental status, confusion, inability to tolerate liquid feeds, new, worsened or different symptoms not present on the initial emergency room evaluation. Prescriptions: Markus Root [Markus] 250 mg PO QID PRN #30 capsule PRN Reason: Nausea Ondansetron [Zofran Odt] 4 mg PO Q8HR PRN #20 tab.rapdis PRN Reason: Nausea Referrals: GRANT MEDINA MD [Staff Physician] - 3-5 Days
[2020-10-27 03:29] LABS: BUN/Creatinine Ratio 21; Blood Urea Nitrogen 19 mg/dL (9-20); Calcium 9.3 mg/dL (8.4-10.2); Hemolysis Index 8
[2020-10-27 03:55] LABS: ABG Base Excess -3.7 mmol/L (-2.0-3.0); ABG HCO3 20.8 mmol/L (20.0-26.0); ABG Methemoglobin 0.7 % (0.0-1.5); ABG Oxygen Saturation 97.7 % (95.0-99.0); ABG PCO2 35.9 mm Hg; ABG PH 7.381 pH Units (7.350-7.450); ABG PO2 105.3 mm Hg (80.0-90.0)
--- NOTE | 2020-10-27 03:57 | XRay Report ---
CHEST 1 VIEW INDICATION: weakness, nausea. COMPARISON: 01/23/2020 FINDINGS: SUPPORT DEVICES: None. HEART: Within normal limits. LUNGS/PLEURA: Minimal streaky bibasilar airspace disease with otherwise clear lungs. ADDITIONAL FINDINGS: None. IMPRESSION: 1. Pulmonary findings as above. Signer Name: Alexi Pearson MD Signed: 10/27/2020 3:52 AM Workstation Name: [id number]
[2020-10-27 04:05] LABS: INR 1.05 (0.87-1.13)
[2020-10-27 04:18] LABS: Bilirubin,Urine NEG (Negative); Blood,Urine SM (Negative); Color,Urine Straw (Yellow); Protein,Urine <15 mg/dL mg/dL (Negative); RBC,Urine < 1.0 /HPF (0.0-6.0); Urobilinogen,Urine < 2.0 mg/dL (<2.0); WBC,Urine < 1.0 /HPF (0.0-6.0)
--- NOTE | 2020-10-27 04:57 | Cat Scan Report ---
CT head without contrast HISTORY: ams confusion. TECHNIQUE: Axial imaging performed from the skull apex through the skull base without the use of con trast. All CT scans at this location are performed using CT dose reduction for ALARA by means of aut omated exposure control. COMPARISON: CT head from 06/18/2015 FINDINGS: Parenchyma: No acute intracranial hemorrhage or parenchymal abnormality. Probable tiny lacunar infar cts in the right basal ganglia region. Ventricles: There is mild diffuse brain atrophy with commensurate ventricular enlargement which is l ikely age appropriate. Soft tissues: Soft tissues including the orbits appear normal. Bones: No acute osseous abnormality. Sinuses: There is very mild mucosal thickening involving a few of the sinuses. Mastoid air cells are clear. IMPRESSION: No acute abnormality. Signer Name: Alexi Pearson MD Signed: 10/27/2020 4:52 AM Workstation Name: [id number]
--- NOTE | 2020-10-27 05:01 | Cat Scan Report ---
CT ABDOMEN AND PELVIS WITHOUT CONTRAST HISTORY: abd pain weakness n, confusion. COMPARISON: CT abdomen/pelvis from 04/11/2020 TECHNIQUE: CT images of the abdomen and pelvis were obtained without administration of intravenous co ntrast. All CT scans at this location are performed using CT dose reduction for ALARA by means of au tomated exposure control. FINDINGS: Lungs/bones: There is mild bibasilar atelectasis. Degenerative changes are present throughout the sp ine and pelvis with no acute osseous abnormality identified. 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 Abdomen/pelvis: There is cholelithiasis with no inflammatory change identified. The liver, spleen, p ancreas, adrenals, and proximal GI tract appear unremarkable. There is punctate nonobstructive nephro lithiasis in the kidneys. Moderately advanced atherosclerotic disease is present throughout the abdom inal aorta and branch vessels. Urinary bladder is unremarkable. Prostate is mildly enlarged. No pelvic free fluid. There are occasio nal colonic diverticula with no acute inflammatory change identified. IMPRESSION: 1. No acute abnormality identified. 2. Incidental findings as above. Signer Name: Alexi Pearson MD Signed: 10/27/2020 4:57 AM Workstation Name: [id number]
[2020-10-27 06:10] VITALS: BP 119/57
== END 2020-10-27 05:40 | disposition home or self-care (01) ==
LOC: ED 00:47
DX: F41.9 Anxiety disorder, unspecified (principal); J44.9 Chronic obstructive pulmonary disease, unspecified; I10 Essential (primary) hypertension; I25.2 Old myocardial infarction; E11.9 Type 2 diabetes mellitus without complications; M17.0 Bilateral primary osteoarthritis of knee; R41.82 Altered mental status, unspecified; Z87.442 Personal history of urinary calculi; Z98.890 Other specified postprocedural states; Z79.899 Other long term (current) drug therapy; Z88.8 Allergy status to other drugs, medicaments and biological substances; Z00.01 Encounter for general adult medical examination with abnormal findings; Z87.898 Personal history of other specified conditions
CPT/HCPCS: 36415; 70450; 71045; 74176; 80048; 81001; 82140; 82550; 82803; 83735; 84443; 84484; 85025; 85610; 87040; 93005; 96374; 99285; J2405; 80320; G0480

== ENCOUNTER 2020-11-07 21:58 | Emergency (ER) | payer MEDICARE | END 2020-11-08 01:00 | disposition left against medical advice (07) | LOC: ED 21:58 | DX: R06.02 Shortness of breath (principal); Z53.21 Procedure and treatment not carried out due to patient leaving prior to being seen by health care provider ==

== ENCOUNTER 2020-11-09 14:16 | Emergency (ER) | payer MEDICARE ==
[2020-11-09 14:24] VITALS: BP 118/64
--- NOTE | 2020-11-09 14:59 | Event Note ---
ED Screening Note Date of service: 11/09/20 Time: 14:58 ED Screening Note: 75-year-old male with a history of COPD presents to the emergency room stating that he cannot breathe. Patient reports he is on oxygen 3 L at home but having difficulty breathing. This initial assessment/diagnostic orders/clinical plan/treatment(s) is/are subject to change based on patients health status, clinical progression and re- assessment by fellow clinical providers in the ED. Further treatment and workup at subsequent clinical providers discretion. Patient/guardian urged not to elope from the ED as their condition may be serious if not clinically assessed and managed. Initial orders include:
--- NOTE | 2020-11-09 15:31 | XRay Report ---
CHEST 2 VIEWS INDICATION / CLINICAL INFORMATION: Shortness of breath, cough and rales. COMPARISON: 10/27/2020. FINDINGS: SUPPORT DEVICES: None. HEART / MEDIASTINUM: The heart size and pulmonary vasculature are normal. LUNGS / PLEURA: Mild patchy groundglass parenchymal opacity in the right upper lobe is new. Mild biba silar subsegmental parenchymal disease has not changed. No pleural effusion. No pneumothorax. ADDITIONAL FINDINGS: No significant additional findings. IMPRESSION: Interval development of mild patchy right upper lobe pneumonia. Signer Name: Dm Lyons MD Signed: 11/09/2020 3:26 PM Workstation Name: [id number]
== END 2020-11-09 17:00 | disposition left against medical advice (07) ==
LOC: ED 14:16
DX: R06.00 Dyspnea, unspecified (principal); Z53.21 Procedure and treatment not carried out due to patient leaving prior to being seen by health care provider
CPT/HCPCS: 71046

== ENCOUNTER 2020-12-27 13:54 | Emergency (ER) | payer MEDICARE ==
--- NOTE | 2020-12-27 14:36 | Event Note ---
ED Screening Note ED Screening Note: to er via ems for AMS for 3 days [place] oriented to person hx DM bg 185 VS per EMS This initial assessment/diagnostic orders/clinical plan/treatment(s) is/are subject to change based on patients health status, clinical progression and re- assessment by fellow clinical providers in the ED. Further treatment and workup at subsequent clinical providers discretion. Patient/guardian urged not to elope from the ED as their condition may be serious if not clinically assessed and managed. Initial orders include: ro neuro/cardiac/infectious etio AMS
--- NOTE | 2020-12-27 15:33 | Cat Scan Report ---
NONENHANCED CT SCAN OF THE HEAD: INDICATION / CLINICAL INFORMATION: 75 years Male; Altered Mental Status. TECHNIQUE: Routine CT head without contrast. All CT scans at this location are performed using CT dos e reduction for ALARA by means of automated exposure control. COMPARISON: CT scan of the head from 10/27/2020 FINDINGS: BRAIN / INTRACRANIAL CONTENTS: No acute hemorrhage, mass effect, midline shift, hydrocephalus, or acu te, large territorial infarct. No chronic infarct or encephalomalacia. Moderate cerebral and cerebell ar involution; patient related artifacts obscure the details at the level of temporal lobes; moderate volume loss in the medial temporal lobes to be: Focal chronic ischemia in the right cerebellar hemis phere; white matter low-attenuation areas due to chronic small vessel disease CRANIOCERVICAL JUNCTION: No significant abnormality. ORBITS: No significant abnormality of visualized orbits. SINUSES / MASTOIDS: No significant abnormality of the visualized paranasal sinuses or mastoid air flori ls. ADDITIONAL FINDINGS: None. IMPRESSION: No acute focal parenchymal lesion in the brain Signer Name: Brent Lee MD Signed: 12/27/2020 3:29 PM Workstation Name: [email or web address] [id number]
--- NOTE | 2020-12-27 15:45 | XRay Report ---
XR chest 1V ap INDICATION / CLINICAL INFORMATION: AMS. COMPARISON: 11/09/2020 FINDINGS: SUPPORT DEVICES: None. HEART /PULMONARY VASCULATURE: No significant abnormality. LUNGS / PLEURA: Stable chronic appearing interstitial lung changes. No new or increasing consolidatio n. No pleural effusion. No pneumothorax. ADDITIONAL FINDINGS: No significant additional findings. IMPRESSION: No acute process. No interval change. Signer Name: Ishmael Melvin MD Signed: 12/27/2020 3:40 PM Workstation Name: [id number]
[2020-12-27 15:49] LABS: Basophils # (Auto) 0.1 K/mm3 (0.0-0.1); Basophils % (Auto) 1.5 % (0.0-1.8); Eosinophils # (Auto) 0.4 K/mm3 (0.0-0.4); Eosinophils % (Auto) 6.5 % (0.0-4.3); Hematocrit 36.9 % (35.5-45.6); Hemoglobin 12.3 gm/dl (11.8-15.2); Lymphocytes # (Auto) 1.2 K/mm3 (1.2-5.4); Lymphocytes % (Auto) 20.9 % (13.4-35.0); Mean Corpuscular HGB Conc 33 % (32-34); Mean Corpuscular Volume 87 fl (84-94); Monocytes # (Auto) 0.5 K/mm3 (0.0-0.8); Monocytes % (Auto) 9.6 % (0.0-7.3); Platelet Count 153 K/mm3 (140-440); Red Blood Count 4.24 M/mm3 (3.65-5.03); Red Cell Distribution Width 16.7 % (13.2-15.2)
[2020-12-27 16:05] LABS: ABG Base Excess -1.5 mmol/L (-2.0-3.0); ABG HCO3 22.3 mmol/L (20.0-26.0); ABG Methemoglobin 0.5 % (0.0-1.5); ABG Oxygen Saturation 96.8 % (95.0-99.0); ABG PCO2 34.5 mm Hg; ABG PH 7.429 pH Units (7.350-7.450); ABG PO2 79.2 mm Hg (80.0-90.0)
[2020-12-27 16:12] LABS: Alanine Aminotransferase 11 units/L (7-56); Albumin 3.9 g/dL (3.9-5); BUN/Creatinine Ratio 32; Blood Urea Nitrogen 32 mg/dL (9-20); Calcium 9.4 mg/dL (8.4-10.2); Hemolysis Index 15
[2020-12-27] MEDS ORDERED: SODIUM CHLORIDE 0.9% 500 ML 500 ML IV ONE (16:24)
--- NOTE | 2020-12-27 16:39 | Emergency Department Report ---
ED Altered Mental Status HPI - General Chief Complaint: Altered Mental Status Stated Complaint: CONFUSION Time Seen by Provider: 12/27/20 14:34 Source: patient Mode of arrival: Ambulatory Limitations: No Limitations - History of Present Illness Initial Comments: 75-year-old male, history of COPD, CHF, presents to ED with confusion and altered mental status x2 to 3 days. states patient drove to his doctor's appointment earlier today, however, the staff at the doctor's office would not to drive home, so they called her to come and pick him up. states that as they were riding in the car back to the house, patient was trying to take off hi s pants and he could not figure out how to take of his seatbelt. I also spoke with patient's daughter Kerri ([phone]) who lives with the patient. She states patient has never exhibited this type of behavior before. States over the last 2 days patient was complaining that he did not feel well, but nothing specifically. Patient was diagnosed with COVID-19 one month ago. Daughter states patient has always been very forgetful, however what happened this morning was worse than usual. MD Complaint: altered mental status -: days(s) (2) Severity: moderate Consistency of Symptoms: getting worse Context: unknown Associated Symptoms: denies: chest pain, fever/chills, headaches, nausea/vomiting, shortness of breath - Related Data Home Medications Medication Instructions Recorded Confirmed Last Taken Vit B12/Folic Acid/B6/Aa No.15 1 each PO DAILY 01/07/18 01/23/20 01/28/19 08:00 [Glycotrol Capsule] Insulin Glargine [Lantus VIAL] 30 unit SUB-Q QHS 01/28/19 01/23/20 01/27/19 20:00 Lispro Insulin [HumaLOG] 10 unit SQ AC 01/29/19 01/23/20 01/28/19 AtorvaSTATin [Lipitor] 40 mg PO HS 01/23/20 01/23/20 Unknown Canagliflozin (Nf) [Invokana (Nf)] 300 mg PO DAILY 01/23/20 01/23/20 Unknown Ipratropium/Albuterol Sulfate 1 puff INHALATION Q6H 01/23/20 01/23/20 Unknown [Combivent Respimat] Sitagliptin Phosphate [Januvia] 100 mg PO DAILY 01/23/20 01/23/20 Unknown metFORMIN 1,000 mg PO BID 01/23/20 01/23/20 Unknown Previous Rx's Medication Instructions Recorded Last Taken Type Canagliflozin [Invokana] 300 mg PO DAILY #30 tablet 12/11/18 01/28/19 08:00 Rx Escitalopram [Lexapro] 10 mg PO DAILY #30 tablet 12/11/18 01/28/19 08:00 Rx Fluticasone [Flonase] 50 mcg INHALATION DAILY PRN #1 12/11/18 01/28/19 08:00 Rx bottle Ipratropium/Albuterol Sulfate 1 puff PO QID #1 mist.inhal 12/11/18 01/28/19 08:00 Rx [Combivent Respimat] Metformin HCl [Glucophage] 1,000 mg PO BID #60 tablet 12/11/18 01/28/19 08:00 Rx Sitagliptin Phosphate [Januvia] 100 mg PO DAILY #30 tablet 12/11/18 01/28/19 08:00 Rx amLODIPine 5 mg PO DAILY #30 tablet 12/11/18 01/28/19 08:00 Rx lisinopriL [Zestril TAB] 20 mg PO DAILY #30 tablet 12/11/18 01/28/19 08:00 Rx Budesonide/Formoterol Fumarate 10.2 gm IH BID #1 hfa.aer.ad 01/24/20 Unknown Rx [Symbicort 80-4.5 Mcg Inhaler] Prednisone [predniSONE 10 mg 10 mg PO .TAPER #1 tab.ds.pk 01/24/20 Unknown Rx (6-Day Pack, 21 Tabs)] prednisoLONE [Millipred 5mg (6 day 5 mg PO QDAY 6 Days #21 tab.ds.pk 01/24/20 Unknown Rx 21 tab dosepak)] Dicyclomine [Bentyl] 10 mg PO QID PRN #20 capsule 04/11/20 Unknown Rx Chlorhexidine Gluconate [Hibiclens] 10 ml TP BID #240 liquid 09/18/20 Unknown Rx cephALEXin [Keflex] 500 mg PO Q6HR #40 capsule 09/18/20 Unknown Rx Carmen Root [Carmen] 250 mg PO QID PRN #30 capsule 10/27/20 Unknown Rx Ondansetron [Zofran Odt] 4 mg PO Q8HR PRN #20 tab.rapdis 10/27/20 Unknown Rx Allergies Allergy/AdvReac Type Severity Reaction Status Date / Time benazepril HCl AdvReac Rash Verified 09/18/20 17:54 [From Lotensin] theophylline AdvReac Unknown Verified 09/18/20 17:54 ED Review of Systems ROS: Stated complaint: CONFUSION Other details as noted in HPI Comment: All other systems reviewed and negative Constitutional: denies: chills, fever Respiratory: denies: cough, shortness of breath Cardiovascular: denies: chest pain Gastrointestinal: denies: abdominal pain Neurological: denies: headache ED Past Medical Hx - Past Medical History Hx Hypertension: Yes Hx Heart Attack/AMI: Yes (cardiac arrest, mild CAD 30%) Hx Diabetes: Yes (12 years) Hx Arthritis: Yes (right knee hands) Hx Kidney Stones: Yes Hx COPD: Yes Additional medical history: left bundle branch block, respiratory failure, intubated x 5. last pneumovax 12/01/2016. last flu shot 12/01/2016. sleep apnea/needs CPAP - Surgical History Past Surgical History?: Yes Additional Surgical History: hernia repair. kidney stones removed. cataracts - Social History Smoking Status: Never Smoker Substance Use Type: None - Medications Home Medications: Home Medications Medication Instructions Recorded Confirmed Last Taken Type Vit B12/Folic Acid/B6/Aa No.15 1 each PO DAILY 01/07/18 01/23/20 01/28/19 08:00 History [Glycotrol Capsule] Canagliflozin [Invokana] 300 mg PO DAILY #30 tablet 12/11/18 01/23/20 01/28/19 08:00 Rx Escitalopram [Lexapro] 10 mg PO DAILY #30 tablet 12/11/18 01/23/20 01/28/19 08:00 Rx Fluticasone [Flonase] 50 mcg INHALATION DAILY PRN #1 12/11/18 01/23/20 01/28/19 08:00 Rx bottle Ipratropium/Albuterol Sulfate 1 puff PO QID #1 mist.inhal 12/11/18 01/23/20 01/28/19 08:00 Rx [Combivent Respimat] Metformin HCl [Glucophage] 1,000 mg PO BID #60 tablet 12/11/18 01/23/20 01/28/19 08:00 Rx Sitagliptin Phosphate [Januvia] 100 mg PO DAILY #30 tablet 12/11/18 01/23/20 01/28/19 08:00 Rx amLODIPine 5 mg PO DAILY #30 tablet 12/11/18 01/23/20 01/28/19 08:00 Rx lisinopriL [Zestril TAB] 20 mg PO DAILY #30 tablet 12/11/18 01/23/20 01/28/19 08:00 Rx Insulin Glargine [Lantus VIAL] 30 unit SUB-Q QHS 01/28/19 01/23/20 01/27/19 20:00 History Lispro Insulin [HumaLOG] 10 unit SQ AC 01/29/19 01/23/20 01/28/19 History AtorvaSTATin [Lipitor] 40 mg PO HS 01/23/20 01/23/20 Unknown History Canagliflozin (Nf) [Invokana (Nf)] 300 mg PO DAILY 01/23/20 01/23/20 Unknown History Ipratropium/Albuterol Sulfate 1 puff INHALATION Q6H 01/23/20 01/23/20 Unknown History [Combivent Respimat] Sitagliptin Phosphate [Januvia] 100 mg PO DAILY 01/23/20 01/23/20 Unknown History metFORMIN 1,000 mg PO BID 01/23/20 01/23/20 Unknown History Budesonide/Formoterol Fumarate 10.2 gm IH BID #1 hfa.aer.ad 01/24/20 Unknown Rx [Symbicort 80-4.5 Mcg Inhaler] Prednisone [predniSONE 10 mg 10 mg PO .TAPER #1 tab.ds.pk 01/24/20 Unknown Rx (6-Day Pack, 21 Tabs)] prednisoLONE [Millipred 5mg (6 day 5 mg PO QDAY 6 Days #21 tab.ds.pk 01/24/20 Unknown Rx 21 tab dosepak)] Dicyclomine [Bentyl] 10 mg PO QID PRN #20 capsule 04/11/20 Unknown Rx Chlorhexidine Gluconate [Hibiclens] 10 ml TP BID #240 liquid 09/18/20 Unknown Rx cephALEXin [Keflex] 500 mg PO Q6HR #40 capsule 09/18/20 Unknown Rx Carmen Root [Carmen] 250 mg PO QID PRN #30 capsule 10/27/20 Unknown Rx Ondansetron [Zofran Odt] 4 mg PO Q8HR PRN #20 tab.rapdis 10/27/20 Unknown Rx ED Physical Exam - General Limitations: No Limitations General appearance: alert, in no apparent distress - Head Head exam: Present: atraumatic, normocephalic - Eye Eye exam: Present: normal appearance, EOMI - ENT ENT exam: Present: mucous membranes moist - Neck Neck exam: Present: normal inspection - Respiratory Respiratory exam: Present: normal lung sounds bilaterally. Absent: respiratory distress - Cardiovascular Cardiovascular Exam: Present: regular rate, normal rhythm - GI/Abdominal GI/Abdominal exam: Present: soft. Absent: distended, tenderness - Extremities Exam Extremities exam: Present: normal inspection - Neurological Exam Neurological exam: Present: alert, oriented X3, CN II-XII intact, other. Absent: motor sensory deficit - Psychiatric Psychiatric exam: Present: normal affect, normal mood - Skin Skin exam: Present: warm, dry, intact, normal color ED Course Vital Signs 12/27/20 12/27/20 15:44 18:33 Temperature 98.3 F 98.3 F Pulse Rate 82 111 H Respiratory 18 18 Rate Blood Pressure 95/56 107/73 [Left] O2 Sat by Pulse 99 96 Oximetry - Reevaluation(s) Reevaluation #1: 12/27/20 18:26 Daughter spoke with patient over the phone and feels he is at his baseline. Patient is A&O x3 currently. Work-up is unremarkable. Daughter is comfortable with discharge patient patient. Will come and pick him up. - Lab Data Result diagrams: 12/27/20 15:26 12/27/20 15:26 Lab Results 12/27/20 12/27/20 12/27/20 Range/Units 15:25 15:26 15:26 WBC 5.6 (4.5-11.0) K/mm3 RBC 4.24 (3.65-5.03) M/mm3 Hgb 12.3 (11.8-15.2) gm/dl Hct 36.9 (35.5-45.6) % MCV 87 (84-94) fl MCH 29 (28-32) pg MCHC 33 (32-34) % RDW 16.7 H (13.2-15.2) % Plt Count 153 (140-440) K/mm3 Lymph % (Auto) 20.9 (13.4-35.0) % [place] % (Auto) 9.6 H (0.0-7.3) % Eos % (Auto) 6.5 H (0.0-4.3) % Baso % (Auto) 1.5 (0.0-1.8) % Lymph # (Auto) 1.2 (1.2-5.4) K/mm3 [place] # (Auto) 0.5 (0.0-0.8) K/mm3 Eos # (Auto) 0.4 (0.0-0.4) K/mm3 Baso # (Auto) 0.1 (0.0-0.1) K/mm3 Seg Neutrophils % 61.5 (40.0-70.0) % Seg Neutrophils # 3.4 (1.8-7.7) K/mm3 ABG pH (7.350-7.450) pH Units ABG pCO2 mm Hg ABG pO2 (80.0-90.0) mm Hg ABG HCO3 (20.0-26.0) mmol/L ABG O2 Saturation (95.0-99.0) % ABG O2 Content (0.0-44) ABG Base Excess (-2.0-3.0) mmol/L ABG Hemoglobin (14.0-18.0) gm/dl ABG Carboxyhemoglobin (0.0-5.0) % ABG Methemoglobin (0.0-1.5) % Oxyhemoglobin (95.0-99.0) % FiO2 % Sodium (137-145) mmol/L Potassium (3.6-5.0) mmol/L Chloride (98-107) mmol/L Carbon Dioxide (22-30) mmol/L Anion Gap mmol/L BUN (9-20) mg/dL Creatinine (0.8-1.3) mg/dL Estimated GFR ml/min BUN/Creatinine Ratio % Glucose (75-100) mg/dL POC Glucose (70-105) mg/dL Lactic Acid 1.00 (0.7-2.0) mmol/L Calcium (8.4-10.2) mg/dL Total Bilirubin (0.1-1.2) mg/dL AST (5-40) units/L ALT (7-56) units/L Alkaline Phosphatase (35-129) units/L Troponin T (0.00-0.029) ng/mL Total Protein (6.3-8.2) g/dL Albumin (3.9-5) g/dL Albumin/Globulin Ratio % TSH 0.899 (0.270-4.200) mlU/mL Urine Color (Yellow) Urine Turbidity (Clear) Urine pH (5.0-7.0) Ur Specific [place] (1.003-1.030) Urine Protein (Negative) mg/dL Urine Glucose (UA) (Negative) mg/dL Urine Ketones (Negative) mg/dL Urine Blood (Negative) Urine Nitrite (Negative) Urine Bilirubin (Negative) Urine Urobilinogen (<2.0) mg/dL Ur Leukocyte Esterase (Negative) Urine WBC (Auto) (0.0-6.0) /HPF Urine RBC (Auto) (0.0-6.0) /HPF Urine Mucus /HPF Urine Opiates Screen Urine Methadone Screen Ur Barbiturates Screen Ur Phencyclidine Scrn Ur Amphetamines Screen U Benzodiazepines Scrn Urine Cocaine Screen U Marijuana (THC) Screen Drugs of Abuse Note Plasma/Serum Alcohol (0-0.07) % 12/27/20 12/27/20 12/27/20 Range/Units 15:26 15:36 15:55 WBC (4.5-11.0) K/mm3 RBC (3.65-5.03) M/mm3 Hgb (11.8-15.2) gm/dl Hct (35.5-45.6) % MCV (84-94) fl MCH (28-32) pg MCHC (32-34) % RDW (13.2-15.2) % Plt Count (140-440) K/mm3 Lymph % (Auto) (13.4-35.0) % [place] % (Auto) (0.0-7.3) % Eos % (Auto) (0.0-4.3) % Baso % (Auto) (0.0-1.8) % Lymph # (Auto) (1.2-5.4) K/mm3 [place] # (Auto) (0.0-0.8) K/mm3 Eos # (Auto) (0.0-0.4) K/mm3 Baso # (Auto) (0.0-0.1) K/mm3 Seg Neutrophils % (40.0-70.0) % Seg Neutrophils # (1.8-7.7) K/mm3 ABG pH 7.429 (7.350-7.450) pH Units ABG pCO2 34.5 mm Hg ABG pO2 79.2 L (80.0-90.0) mm Hg ABG HCO3 22.3 (20.0-26.0) mmol/L ABG O2 Saturation 96.8 (95.0-99.0) % ABG O2 Content 16.0 (0.0-44) ABG Base Excess -1.5 (-2.0-3.0) mmol/L ABG Hemoglobin 12.0 L (14.0-18.0) gm/dl ABG Carboxyhemoglobin 1.5 (0.0-5.0) % ABG Methemoglobin 0.5 (0.0-1.5) % Oxyhemoglobin 94.8 L (95.0-99.0) % FiO2 21 % Sodium 134 L (137-145) mmol/L Potassium 4.8 (3.6-5.0) mmol/L Chloride 100.1 (98-107) mmol/L Carbon Dioxide 21 L (22-30) mmol/L Anion Gap 18 mmol/L BUN 32 H (9-20) mg/dL Creatinine 1.0 (0.8-1.3) mg/dL Estimated GFR > 60 ml/min BUN/Creatinine Ratio 32 % Glucose 184 H (75-100) mg/dL POC Glucose 155 H (70-105) mg/dL Lactic Acid (0.7-2.0) mmol/L Calcium 9.4 (8.4-10.2) mg/dL Total Bilirubin 0.70 (0.1-1.2) mg/dL AST 14 (5-40) units/L ALT 11 (7-56) units/L Alkaline Phosphatase 94 (35-129) units/L Troponin T < 0.010 (0.00-0.029) ng/mL Total Protein 5.9 L (6.3-8.2) g/dL Albumin 3.9 (3.9-5) g/dL Albumin/Globulin Ratio 2.0 % TSH (0.270-4.200) mlU/mL Urine Color (Yellow) Urine Turbidity (Clear) Urine pH (5.0-7.0) Ur Specific [place] (1.003-1.030) Urine Protein (Negative) mg/dL Urine Glucose (UA) (Negative) mg/dL Urine Ketones (Negative) mg/dL Urine Blood (Negative) Urine Nitrite (Negative) Urine Bilirubin (Negative) Urine Urobilinogen (<2.0) mg/dL Ur Leukocyte Esterase (Negative) Urine WBC (Auto) (0.0-6.0) /HPF Urine RBC (Auto) (0.0-6.0) /HPF Urine Mucus /HPF Urine Opiates Screen Urine Methadone Screen Ur Barbiturates Screen Ur Phencyclidine Scrn Ur Amphetamines Screen U Benzodiazepines Scrn Urine Cocaine Screen U Marijuana (THC) Screen Drugs of Abuse Note Plasma/Serum Alcohol (0-0.07) % 12/27/20 12/27/20 12/27/20 Range/Units 16:52 16:52 16:58 WBC (4.5-11.0) K/mm3 RBC (3.65-5.03) M/mm3 Hgb (11.8-15.2) gm/dl Hct (35.5-45.6) % MCV (84-94) fl MCH (28-32) pg MCHC (32-34) % RDW (13.2-15.2) % Plt Count (140-440) K/mm3 Lymph % (Auto) (13.4-35.0) % [place] % (Auto) (0.0-7.3) % Eos % (Auto) (0.0-4.3) % Baso % (Auto) (0.0-1.8) % Lymph # (Auto) (1.2-5.4) K/mm3 [place] # (Auto) (0.0-0.8) K/mm3 Eos # (Auto) (0.0-0.4) K/mm3 Baso # (Auto) (0.0-0.1) K/mm3 Seg Neutrophils % (40.0-70.0) % Seg Neutrophils # (1.8-7.7) K/mm3 ABG pH (7.350-7.450) pH Units ABG pCO2 mm Hg ABG pO2 (80.0-90.0) mm Hg ABG HCO3 (20.0-26.0) mmol/L ABG O2 Saturation (95.0-99.0) % ABG O2 Content (0.0-44) ABG Base Excess (-2.0-3.0) mmol/L ABG Hemoglobin (14.0-18.0) gm/dl ABG Carboxyhemoglobin (0.0-5.0) % ABG Methemoglobin (0.0-1.5) % Oxyhemoglobin (95.0-99.0) % FiO2 % Sodium (137-145) mmol/L Potassium (3.6-5.0) mmol/L Chloride (98-107) mmol/L Carbon Dioxide (22-30) mmol/L Anion Gap mmol/L BUN (9-20) mg/dL Creatinine (0.8-1.3) mg/dL Estimated GFR ml/min BUN/Creatinine Ratio % Glucose (75-100) mg/dL POC Glucose (70-105) mg/dL Lactic Acid (0.7-2.0) mmol/L Calcium (8.4-10.2) mg/dL Total Bilirubin (0.1-1.2) mg/dL AST (5-40) units/L ALT (7-56) units/L Alkaline Phosphatase (35-129) units/L Troponin T (0.00-0.029) ng/mL Total Protein (6.3-8.2) g/dL Albumin (3.9-5) g/dL Albumin/Globulin Ratio % TSH (0.270-4.200) mlU/mL Urine Color Yellow (Yellow) Urine Turbidity Clear (Clear) Urine pH 5.0 (5.0-7.0) Ur Specific [place] 1.025 (1.003-1.030) Urine Protein <15 mg/dl (Negative) mg/dL Urine Glucose (UA) >=500 (Negative) mg/dL Urine Ketones Tr (Negative) mg/dL Urine Blood Neg (Negative) Urine Nitrite Neg (Negative) Urine Bilirubin Neg (Negative) Urine Urobilinogen < 2.0 (<2.0) mg/dL Ur Leukocyte Esterase Neg (Negative) Urine WBC (Auto) 1.0 (0.0-6.0) /HPF Urine RBC (Auto) < 1.0 (0.0-6.0) /HPF Urine Mucus Few /HPF Urine Opiates Screen Negative Urine Methadone Screen Negative Ur Barbiturates Screen Negative Ur Phencyclidine Scrn Negative Ur Amphetamines Screen Negative U Benzodiazepines Scrn Negative Urine Cocaine Screen Negative U Marijuana (THC) Screen Negative Drugs of Abuse Note Disclamer Plasma/Serum Alcohol < 0.01 (0-0.07) % - EKG Data -: EKG Interpreted by Me EKG shows normal: sinus rhythm, ST-T waves Rate: normal When compared to previous EKG there are: no significant change Interpretation: other (LBBB) - Radiology Data Radiology results: report reviewed, image reviewed - Medical Decision Making 75-year-old male presents to ED with altered mental status. Per daughter, patient may have some underlying dementia already, as he is quite forgetful at baseline. Earlier today, patient had an episode an episode of confusion which included him attempting to take his pants off while riding in the car. Here in the ED, work-up is unremarkable. CT head is normal chest x-ray is normal labs are unremarkable. EKG is unchanged. ABG is normal, no evidence of hypercapnia. Urine shows no evidence of infection and drug screen is negative. Patient is A&O x3 on exam. Daughter spoke with patient over the phone and states that patient does sound as if he is at his baseline. Given negative work-up, daughter is comfortable with discharge home. She will come and grain picker the patient. Outpatient follow-up advised with PCP. Return precautions given. - Differential Diagnosis Infection, hypercapnia, intoxication Critical care attestation.: If time is entered above; I have spent that time in minutes in the direct care of this critically ill patient, excluding procedure time. ED Disposition Clinical Impression: Altered mental status Disposition: DC-01 TO HOME OR SELFCARE Is pt being admited?: No Condition: Stable Instructions: Mild Neurocognitive Disorder Referrals: PRIMARY CARE, [Primary Care Provider] - 3-5 Days Time of Disposition: 18:30
[2020-12-27 17:04] LABS: Bilirubin,Urine NEG (Negative); Blood,Urine NEG (Negative); Color,Urine Yellow (Yellow); Mucus,Urine FEW /HPF; Protein,Urine <15 mg/dL mg/dL (Negative); RBC,Urine < 1.0 /HPF (0.0-6.0); Urobilinogen,Urine < 2.0 mg/dL (<2.0)
[2020-12-27 17:40] LABS: Amphetamine Screen,Urine Negative; Benzodiazepines Screen,Urine Negative; Cannabinoid Screen,Urine Negative; Cocaine Screen,Urine Negative; Methadone Screen,Urine Negative; Opiate Screen,Urine Negative
[2020-12-27] MEDS ORDERED: dilTIAZem 25 MG/5 ML INJ IV ONE (18:12)
[2020-12-27 18:34] VITALS: BP 107/73
== END 2020-12-27 18:49 | disposition home or self-care (01) ==
LOC: ED 13:54
DX: R41.82 Altered mental status, unspecified (principal); I10 Essential (primary) hypertension; E11.9 Type 2 diabetes mellitus without complications; M19.91 Primary osteoarthritis, unspecified site; J44.9 Chronic obstructive pulmonary disease, unspecified; Z98.890 Other specified postprocedural states; Z79.4 Long term (current) use of insulin; Z79.899 Other long term (current) drug therapy; Z88.8 Allergy status to other drugs, medicaments and biological substances
CPT/HCPCS: 36415; 70450; 71045; 80053; 80307; 80320; 81001; 82140; 82803; 82962; 84443; 84484; 85025; 87040; 93005; G0480

== ENCOUNTER 2022-03-23 23:16 | Emergency (ER) | payer MEDICARE ==
--- NOTE | 2022-03-23 23:28 | Emergency Department Report ---
ED CPR HPI - General Stated Complaint: CARDIAC ARREST Time Seen by Provider: 03/23/22 23:22 Source: EMS - History of Present Illness Initial Comments: Patient is 76 years old male with history of CHF and COPD and diabetes. Patient brought to the emergency room via EMS in a full cardiac arrest CPR in progress. EMS reported that patient found unresponsive near his car for unknown amount of time. EMS reported that initial rhythm was asystole. ACLS protocol immediately initiated by EMS and patient received chest compression, epinephrine and sodium bicarb. Upon arrival to the ER, ACLS protocol continued. EMS reported that patient has been resuscitated for 35 minutes prior to coming to the ER. Patient with fixed and dilated pupils. No spontaneous breathing or spontaneous heart tone. Patient remained asystole on the monitor. Patient pronounced at 11:18 PM. No family available at this moment. For further information please refer to code sheets. Complaint: found unresponsive -: unknown Place: street Initial Findings in the Field: no pulse, systole ROSC in the Field: No Treatments Prior to Arrival: chest compressions, epinephrine mgs #, sodium bicarbonate - Related Data Home Medications Medication Instructions Recorded Confirmed Last Taken Vit B12/Folic Acid/B6/Aa No.15 1 each PO DAILY 01/07/18 01/23/20 01/28/19 08:00 [Glycotrol Capsule] Insulin Glargine [Lantus VIAL] 30 unit SUB-Q QHS 01/28/19 01/23/20 01/27/19 20:00 Lispro Insulin [HumaLOG] 10 unit SQ AC 01/29/19 01/23/20 01/28/19 AtorvaSTATin [Lipitor] 40 mg PO HS 01/23/20 01/23/20 Unknown Canagliflozin (Nf) [Invokana (Nf)] 300 mg PO DAILY 01/23/20 01/23/20 Unknown Ipratropium/Albuterol Sulfate 1 puff INHALATION Q6H 01/23/20 01/23/20 Unknown [Combivent Respimat] Sitagliptin Phosphate [Januvia] 100 mg PO DAILY 01/23/20 01/23/20 Unknown metFORMIN 1,000 mg PO BID 01/23/20 01/23/20 Unknown Previous Rx's Medication Instructions Recorded Last Taken Type Canagliflozin [Invokana] 300 mg PO DAILY #30 tablet 12/11/18 01/28/19 08:00 Rx Escitalopram [Lexapro] 10 mg PO DAILY #30 tablet 12/11/18 01/28/19 08:00 Rx Fluticasone [Flonase] 50 mcg INHALATION DAILY PRN #1 12/11/18 01/28/19 08:00 Rx bottle Ipratropium/Albuterol Sulfate 1 puff PO QID #1 mist.inhal 12/11/18 01/28/19 08:00 Rx [Combivent Respimat] Metformin HCl [Glucophage] 1,000 mg PO BID #60 tablet 12/11/18 01/28/19 08:00 Rx Sitagliptin Phosphate [Januvia] 100 mg PO DAILY #30 tablet 12/11/18 01/28/19 08:00 Rx amLODIPine 5 mg PO DAILY #30 tablet 12/11/18 01/28/19 08:00 Rx lisinopriL [Zestril TAB] 20 mg PO DAILY #30 tablet 12/11/18 01/28/19 08:00 Rx Budesonide/Formoterol Fumarate 10.2 gm IH BID #1 hfa.aer.ad 01/24/20 Unknown Rx [Symbicort 80-4.5 Mcg Inhaler] Prednisone [predniSONE 10 mg 10 mg PO .TAPER #1 tab.ds.pk 01/24/20 Unknown Rx (6-Day Pack, 21 Tabs)] prednisoLONE [Millipred 5mg (6 day 5 mg PO QDAY 6 Days #21 tab.ds.pk 01/24/20 Unknown Rx 21 tab dosepak)] Dicyclomine [Bentyl] 10 mg PO QID PRN #20 capsule 04/11/20 Unknown Rx Chlorhexidine Gluconate [Hibiclens] 10 ml TP BID #240 liquid 09/18/20 Unknown Rx cephALEXin [Keflex] 500 mg PO Q6HR #40 capsule 09/18/20 Unknown Rx Carmen Root [Carmen] 250 mg PO QID PRN #30 capsule 10/27/20 Unknown Rx Ondansetron [Zofran Odt] 4 mg PO Q8HR PRN #20 tab.rapdis 10/27/20 Unknown Rx Allergies Allergy/AdvReac Type Severity Reaction Status Date / Time benazepril HCl AdvReac Rash Verified 09/18/20 17:54 [From Lotensin] theophylline AdvReac Unknown Verified 09/18/20 17:54 ED Review of Systems ROS: Stated complaint: CARDIAC ARREST Other details as noted in HPI Comment: Unobtainable due to pts medical conditions ED Past Medical Hx - Past Medical History Hx Hypertension: Yes Hx Heart Attack/AMI: Yes (cardiac arrest, mild CAD 30%) Hx Diabetes: Yes (12 years) Hx Arthritis: Yes (right knee hands) Hx Kidney Stones: Yes Hx COPD: Yes Additional medical history: left bundle branch block, respiratory failure, intubated x 5. last pneumovax 12/01/2016. last flu shot 12/01/2016. sleep apnea/needs CPAP - Surgical History Additional Surgical History: hernia repair. kidney stones removed. cataracts - Social History Smoking Status: Never Smoker Substance Use Type: None - Medications Home Medications: Home Medications Medication Instructions Recorded Confirmed Last Taken Type Vit B12/Folic Acid/B6/Aa No.15 1 each PO DAILY 01/07/18 01/23/20 01/28/19 08:00 History [Glycotrol Capsule] Canagliflozin [Invokana] 300 mg PO DAILY #30 tablet 12/11/18 01/23/20 01/28/19 08:00 Rx Escitalopram [Lexapro] 10 mg PO DAILY #30 tablet 12/11/18 01/23/20 01/28/19 08:00 Rx Fluticasone [Flonase] 50 mcg INHALATION DAILY PRN #1 12/11/18 01/23/20 01/28/19 08:00 Rx bottle Ipratropium/Albuterol Sulfate 1 puff PO QID #1 mist.inhal 12/11/18 01/23/20 01/28/19 08:00 Rx [Combivent Respimat] Metformin HCl [Glucophage] 1,000 mg PO BID #60 tablet 12/11/18 01/23/20 01/28/19 08:00 Rx Sitagliptin Phosphate [Januvia] 100 mg PO DAILY #30 tablet 12/11/18 01/23/20 01/28/19 08:00 Rx amLODIPine 5 mg PO DAILY #30 tablet 12/11/18 01/23/20 01/28/19 08:00 Rx lisinopriL [Zestril TAB] 20 mg PO DAILY #30 tablet 12/11/18 01/23/20 01/28/19 08:00 Rx Insulin Glargine [Lantus VIAL] 30 unit SUB-Q QHS 01/28/19 01/23/20 01/27/19 20:00 History Lispro Insulin [HumaLOG] 10 unit SQ AC 01/29/19 01/23/20 01/28/19 History AtorvaSTATin [Lipitor] 40 mg PO HS 01/23/20 01/23/20 Unknown History Canagliflozin (Nf) [Invokana (Nf)] 300 mg PO DAILY 01/23/20 01/23/20 Unknown History Ipratropium/Albuterol Sulfate 1 puff INHALATION Q6H 01/23/20 01/23/20 Unknown History [Combivent Respimat] Sitagliptin Phosphate [Januvia] 100 mg PO DAILY 01/23/20 01/23/20 Unknown History metFORMIN 1,000 mg PO BID 01/23/20 01/23/20 Unknown History Budesonide/Formoterol Fumarate 10.2 gm IH BID #1 hfa.aer.ad 01/24/20 Unknown Rx [Symbicort 80-4.5 Mcg Inhaler] Prednisone [predniSONE 10 mg 10 mg PO .TAPER #1 tab.ds.pk 01/24/20 Unknown Rx (6-Day Pack, 21 Tabs)] prednisoLONE [Millipred 5mg (6 day 5 mg PO QDAY 6 Days #21 tab.ds.pk 01/24/20 Unknown Rx 21 tab dosepak)] Dicyclomine [Bentyl] 10 mg PO QID PRN #20 capsule 04/11/20 Unknown Rx Chlorhexidine Gluconate [Hibiclens] 10 ml TP BID #240 liquid 09/18/20 Unknown Rx cephALEXin [Keflex] 500 mg PO Q6HR #40 capsule 09/18/20 Unknown Rx Carmen Root [Carmen] 250 mg PO QID PRN #30 capsule 10/27/20 Unknown Rx Ondansetron [Zofran Odt] 4 mg PO Q8HR PRN #20 tab.rapdis 10/27/20 Unknown Rx ED Physical Exam - General General appearance: other (CPR in progress.) - Eye Pupils: Present: other (4 mm fixed and dilated.) - Respiratory Respiratory exam: Present: other (No spontaneous breathing.) - Cardiovascular Cardiovascular Exam: Present: other (No spontaneous heart tones.) - GI/Abdominal GI/Abdominal exam: Present: distended - Neurological Exam Neurological exam: Present: other (CPR in progress.) - Skin Skin exam: Present: warm Critical Care Time: Yes Critical care time in (mins) excluding proc time.: 35 Critical care attestation.: If time is entered above; I have spent that time in minutes in the direct care of this critically ill patient, excluding procedure time. ED Disposition Clinical Impression: Cardiopulmonary arrest Disposition: 20 Is pt being admited?: No Condition: Stable
== END 2022-03-24 01:48 ==
LOC: ED 23:16
DX: I46.9 Cardiac arrest, cause unspecified (principal); I10 Essential (primary) hypertension; E11.9 Type 2 diabetes mellitus without complications; M19.90 Unspecified osteoarthritis, unspecified site; J44.9 Chronic obstructive pulmonary disease, unspecified; Z79.899 Other long term (current) drug therapy; Z88.8 Allergy status to other drugs, medicaments and biological substances
CPT/HCPCS: 92950; 99285